=== PATIENT | female | born 1945 | race Caucasian/White ===

== ENCOUNTER → 2018-02-09 11:35 | Outpatient (CLI) | payer MEDICARE, SELFPAY ==
--- NOTE | 2018-02-09 11:37 | DI.RAD.S_ITS ---
PROCEDURE: XR LUMBAR SPINE 2-3V INDICATIONS: back pain TECHNIQUE: 3 views of the lumbar spine were acquired. COMPARISON: None. FINDINGS: Bones: No fracture or focal osseous destruction One anterolisthesis of L4 on L5. Diffuse facet arthropathy. Mild multilevel lumbar disc degeneration and narrowing. There is partially visualized trace levocurvature centered at T11. Soft tissues: Overlying bowel gas pattern is normal. No suspicious soft tissue calcifications. Scattered aortic vascular calcifications. IMPRESSION: Mild diffuse lumbar disc degeneration and facet arthropathy. Grade 1 anterolisthesis of L4 on L5. Dictated by: Fabrice Penny M.D. on 02/09/2018 at 15:25 Approved by: Fabrice Penny M.D. on 02/09/2018 at 15:27
== END ==
PROVIDERS: Family Provider Family Medicine; PCP Family Medicine; Visit Provider Family Medicine
DX: M54.5 Low back pain (principal); M51.36 Other intervertebral disc degeneration, lumbar region; M47.816 Spondylosis without myelopathy or radiculopathy, lumbar region; M43.16 Spondylolisthesis, lumbar region
CPT/HCPCS: 72100

== ENCOUNTER → 2018-05-12 12:02 | Outpatient (CLI) | payer MEDICARE, SELFPAY ==
--- NOTE | 2018-05-12 | DI.MG.S_ITS ---
BILATERAL DIGITAL SCREENING MAMMOGRAM 3D/2D WITH CAD: 05/12/2018 CLINICAL: Routine screening. Comparison is made to exams dated: 04/06/2017 mammogram, 03/24/2016 mammogram, and 01/15/2015 mammogram - [facility]. The tissue of both breasts is heterogeneously dense. This may lower the sensitivity of mammography. Current study was also evaluated with a Computer Aided Detection (CAD) system. There are benign vascular calcifications in both breasts. There are mole markers on both breasts. No significant masses, calcifications, or other findings are seen in either breast. There has been no significant interval change. IMPRESSION: There is no mammographic evidence of malignancy. A 1 year screening mammogram is recommended. This exam was interpreted at Station ID: [id number]. NOTE: For mammograms, a report in lay terms will be sent to the patient. Approximately 15% of breast malignancies will not be visualized mammographically. In the management of a palpable breast mass, a negative mammogram must not discourage biopsy of a clinically suspicious lesion. Electronically Signed By: Jim hernandez/jaime:05/12/2018 18:11:22 letter sent: Normal Exam ACR BI-RADS Category 2: Benign Finding(s) 3342F
== END ==
PROVIDERS: Family Provider Family Medicine; PCP Family Medicine; Visit Provider Family Medicine
DX: Z12.31 Encounter for screening mammogram for malignant neoplasm of breast (principal)
CPT/HCPCS: 77063; 77067

== ENCOUNTER → 2018-05-13 10:01 | Outpatient (CLI) | payer MEDICARE, SELFPAY ==
[2018-05-13 10:53] LABS: Add Manual Diff / Slide Review NO; Basophils Absolute Auto 0 /uL (0-100); Basophils Percent Auto 0.9 % (0-2); Eosinophils Absolute Auto 100 /uL (0-450); Eosinophils Percent Auto 1.1 % (2-4); Hematocrit 42.5 % (36-46); Hemoglobin 14.2 g/dL (12.0-16.0); Lymphocytes Absolute Auto 1200 /uL (1100-4500); Lymphocytes Percent Auto 24.7 % (25-40); Mean Corpuscular HGB Conc 33.3 % (30-36); Mean Corpuscular Hemoglobin 30.1 PG (26-34); Mean Corpuscular Volume 90.3 fL (80-100); Monocytes Absolute Auto 400 /uL (0-900); Monocytes Percent Auto 8.7 % (3-14); Neutrophils Absolute Auto 3100 /uL (1500-7000); Neutrophils Percent Auto 64.6 % (50-75); Platelet Count 326 X10^3/uL (150-400); Red Blood Cell Count 4.71 X10^6/uL (4.0-5.2); Red Cell Distribution Width 13.7 % (11.6-14.8); White Blood Cell Count 4.8 X10^3/uL (4.5-11.0)
[2018-05-13 11:06] LABS: Alanine Aminotransferase 37 IU/L (9-52); Albumin 4.4 g/dL (3.5-5.0); Albumin Globulin Ratio 1.4 (1.0-2.8); Alkaline Phosphatase 87 U/L (38-126); Aspartate Aminotransferase 28 IU/L (14-36); BUN Creatinine Ratio 17.5 (6-22); Bilirubin Total 0.4 mg/dL (0.2-1.3); Blood Urea Nitrogen 14 mg/dL (7-17); Calcium 9.2 mg/dL (8.4-10.2); Carbon Dioxide 25 mmol/L (22-32); Chloride 105 mmol/L (98-107); Cholesterol 221 mg/dL (140-199); Estimated Glomerular Filt Rate > 60.0 mL/min (>60); Globulin 3.1 g/dL (1.7-4.1); Glucose 102 mg/dL (80-110); HDL Cholesterol 68 mg/dL (40-60); HEMOLYSIS < 15 (0-50); LDL Cholesterol Calculated 133 mg/dL (<100); Potassium 4.1 mmol/L (3.4-5.1); Sodium 140 mmol/L (137-145); Total Protein 7.5 g/dL (6.3-8.2); Triglycerides 98 mg/dL (35-150)
[2018-05-13 12:36] LABS: TSH w/ Reflex to FT4 2.26 uIU/mL (0.47-4.68)
== END ==
PROVIDERS: PCP Family Medicine; Visit Provider Family Medicine
DX: E78.5 Hyperlipidemia, unspecified (principal); Z13.6 Encounter for screening for cardiovascular disorders
CPT/HCPCS: 36415; 80053; 80061; 84443; 85025

== ENCOUNTER 2018-11-03 13:00 | Outpatient (RCR) | payer MEDICARE, SELFPAY ==
--- NOTE | 2018-02-12 14:19 | PT.OIE ---
Current Diagnoses Low back pain (02/12/18) Past Medical History (Last Reviewed 02/09/18 @ 10:53 by Nalini Cortes LPN) Foot pain (Chronic ~2011) GERD (gastroesophageal reflux disease) (Chronic) Schatzki's ring (Chronic 08/16/15) Rectal polyp (Resolved 08/16/15) Seborrheic keratoses (Resolved) Skin cancer of nose (Resolved ~1999) Past Surgical History (Last Reviewed 02/09/18 @ 10:53 by Nalini Cortes LPN) Anesthesia complication (Resolved) History of colonoscopy with polypectomy (Resolved 08/16/15) History of esophagogastroduodenoscopy (EGD) (Resolved 08/16/15) History of local excision of skin lesion (Resolved ~1999) Status post dilation and curettage (Resolved) Status post endoscopy (Resolved) Status post right foot surgery (Resolved 1986) Provider Visit Care Team Role Provider Type Ezio Stiles MD Attending Provider Physician Family Provider Primary Care Provider Specialty: Family Practice Address: [address] [place] [address] Email: [email or web address] Physical Therapy Initial Evaluation PT-OP-A Visit Information Start: 02/11/18 11:12 Freq: Status: Active Protocol: Document 02/12/18 09:46 [facility] (Rec: 02/12/18 10:47 [facility] [id number]) Out-Patient Physical Therapy Visit Information Visit Information Visit Type Initial Evaluation Visit Note 1 total Visit Start Time 09:45 Visit Stop Time 10:30 Total Visit Minutes 45 Visit Number 03/11 PT-OP-B Current Condition Start: 02/11/18 11:12 Freq: Status: Active Protocol: Document 02/12/18 09:46 [facility] (Rec: 02/12/18 10:47 [facility] [id number]) Current Condition History of Current Condition Onset Date a few months ago Current Complaints LBP History of Current Condition Pt reports she fell when chasing a runaway suitcase going down hill that pulled her hard and she landed flat on her back. This was a few months ago and she has had back pain since this and it is not getting better with her trying to do stretches. Reports when she gets up from sitting, it takes her a while to get fully straight. Pt reports being distracted during daily activity d/t pain and gets fatigued quicker. has been doing vacuuming and some of the harder household tasks. Pt reports back pain years ago but went away and was never a lasting thing. Reports she was in hospital for back pain one time because she turned to close the car door and had inc pain. Pt reports this was probably about 15 years or more. Pt has hx of R bunionectomy about 30 years ago. Pt reports hx of D&C about 33 years ago. Pt reports she hit her toe in the past week on L but it is starting to feel better. 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 PT-OP-C Subjective Start: 02/11/18 11:12 Freq: Status: Active Protocol: Document 02/12/18 09:46 [facility] (Rec: 02/12/18 10:47 [facility] [id number]) Patient Questionnaires Oswestry Low Back Index Oswestry Score 38 Oswestry Impairment 20 to 39% Impaired (Score 20- 39) OP-PT Pain Assessment Location LBP Pain Location Details LBP to R hip & lat thigh; pain switches sides Description Aching Dull Description- Other heavy weight in LB; piercing pain w/some movements Frequency Constant Pain Duration difficulty giving number Pain Aggravating Factors ADL's Sitting Bending Lifting Other Pain Aggravating Factors pulling pants on, moving RLE, Pain Alleviating Factors Heat Other Pain Alleviating Factors massage chair (easy level) PT-OP-F Manual Assessment Start: 02/11/18 11:12 Freq: Status: Active Protocol: Document 02/12/18 09:46 [facility] (Rec: 02/12/18 10:47 [facility] [id number]) Manual Assessments Soft Tissue Assessment Soft Tissue Mobility Assessment TIghtness in QL, ES, piriformis & glutes R>L Joint Mobility Assessment Joint Mobility Assessment R iliac crest elevated and ant ; even greater trochanter height PT-OP-G Mobility & Gait Start: 02/11/18 11:12 Freq: Status: Active Protocol: Document 02/12/18 09:46 [facility] (Rec: 02/12/18 10:47 [facility] [id number]) OP Gait Assessment Comments Gait Comments Leg walker primarily; Rotation of R pelvis with RLE push off , fwd trunk lean PT-OP-J Posture/Palpation/Skin Start: 02/11/18 11:12 Freq: Status: Active Protocol: Document 02/12/18 09:46 [facility] (Rec: 02/12/18 10:47 [facility] [id number]) Posture Evaluation [facility] Postural Classification System [facility] Postural Classifications Anterior/Posterior Vertebral Compression Test 0 Elbow Flexion Test 2 Lumbar Protective Mechanism Left AP 1 Lumbar Protective Mechanism Right AP 2 Lumbar Protective Mechanism Left PA 0 Lumbar Protective Mechanism Right PA 0 Leg Swing Left Hard End Feel Limited Leg Swing Right Hard End Feel Limited PT-OP-K Range of Motion Start: 02/11/18 11:12 Freq: Status: Active Protocol: Document 02/12/18 09:46 [facility] (Rec: 02/12/18 10:47 [facility] [id number]) Lumbar Spine Range of Motion Lumbar Spine Active Degrees Testing Position Standing Flexion 34 Extension 11 Lateral Flexion Left 20 Lateral Flexion Right 17 Comments pain with all motions PT-OP-L Special Tests Start: 02/11/18 11:12 Freq: Status: Active Protocol: Document 02/12/18 09:46 [facility] (Rec: 02/12/18 10:47 [facility] [id number]) Special Tests Lumbar Spine Special Tests Slump Test Results neg Straight Leg Raise Test Results neg b PT-OP-M Strength Start: 02/11/18 11:12 Freq: Status: Active Protocol: Document 02/12/18 09:46 [facility] (Rec: 02/12/18 10:47 [facility] [id number]) Hip Strength Hip Manual Muscle Testing Right Flexion (L2) 4+ Good+ Extension (S1) 3+ Fair+ Abduction 3+ Fair+ External Rotation 4- Good- Internal Rotation 4- Good- Comments pain testing all ranges Left Flexion (L2) 4+ Good+ Extension (S1) 4 Good Abduction 4+ Good+ External Rotation 4+ Good+ Internal Rotation 4+ Good+ Knee Strength Knee Manual Muscle Testing Left Flexion (S2) 5 Normal Extension (L3) 4+ Good+ Right Flexion (S2) 5 Normal Extension (L3) 4+ Good+ Ankle/Foot Strength Ankle and Foot Manual Muscle Testing Left Dorsiflexion (L4) 5 Normal Plantarflexion (S1) 5 Normal Right Dorsiflexion (L4) 5 Normal Plantarflexion (S1) 5 Normal PT-OP-Q Treatments Start: 02/11/18 11:12 Freq: Status: Active Protocol: Document 02/12/18 09:46 [facility] (Rec: 02/12/18 10:47 [facility] [id number]) Therapeutic Exercises Supine Exercises marching Supine Exercise Name Tabd brace with marching Side bilateral Reps/Minutes 5 Tabd bracing Supine Exercise Name Tabd brace Reps/Minutes 5 PT-OP-R Modalities Start: 02/11/18 11:12 Freq: Status: Active Protocol: Document 02/12/18 09:46 [facility] (Rec: 02/12/18 10:47 [facility] [id number]) Hot Pack/Cold Pack Treatment Hot Pack Location LB Patient Position Hooklying Treatment Duration (minutes) 15 PT-OP-T Assessment and Plan Start: 02/11/18 11:12 Freq: Status: Active Protocol: Document 02/12/18 09:46 [facility] (Rec: 02/12/18 14:19 [facility] [id number]) Physical Therapy Assessment Rehab Potential Rehabilitation Potential Good Evaluation Complexity Number of Personal Factors/Comorbidities 1-2 Number of Body Systems Impaired 3 Clinical Presentation at Evaluation Stable Impairments Impairments Activity Tolerance Balance Functional Activities Functional Mobility Gait Pain Posture ROM Soft Tissue Mobility Strength Goals ROM Senior Care Goal (LTG) ROM to WNL to allow pt to do ADLs without pain LTG Duration 04/15/18 activity Short Term Goal (STG) Pt will demonstrate good lifting mechanics. STG Duration 03/15/18j Senior Care Goal (LTG) Pt will be able to return to normal daily activities without inc pain or fatigue. LTG Duration 04/15/18 strength Short Term Goal (STG) Indep with HEP STG Duration 03/15/18 Visual And Stock Associate Goal (LTG) Pt will have 5/5 LE strength & 4/5 LPM, EFT & VCT to demonstrate improved core stability to allow pt to do normal daily activities without pain. LTG Duration 04/15/18 Assessment Summary Assessment Pt presents with LBP and R hip pain with impaired posture and poor core control. Pt has mild arthritis, but pain likely mostly d/t fall a few months ago creating uneven pelvis. Physical Therapy Plan Frequency and Duration Frequency of Treatment 2x/Week Duration of Treatment 2 months Plan of Care Start Date 02/12/18 Plan of Care End Date 04/15/18 Therapeutic Interventions Therapeutic Interventions Aquatic Therapy Balance Training Gait Training Home Exercise Program Joint Mobilizations Manual Therapy Neuromuscular Re-education Patient/Caregiver Education Self-Care/Home Management Soft Tissue Mobilization Taping Therapeutic Activities Therapeutic Exercises Modalities Cold Pack/Ice Massage Electric Stimulation Hot Packs Traction- Mechanical Ultrasound Next Visit Focus/Plan Next Note Type Treatment Note Next Visit Plan Supine core stability exercises, piriformis stretch, STM to LB and piriformis & hip inf & ant mobs
--- NOTE | 2018-02-12 14:20 | PT.OPPOC ---
Current Diagnoses Low back pain (02/12/18) Provider Visit Care Team Role Provider Type Ezio Stiles MD Attending Provider Physician Family Provider Primary Care Provider Specialty: Family Practice Address: [address] [place] [address], [facility] Email: [email or web address] Plan Of Care PT-OP-T Assessment and Plan Start: 02/11/18 11:12 Freq: Status: Active Protocol: Document 02/12/18 09:46 [facility] (Rec: 02/12/18 14:19 [facility] [id number]) Physical Therapy Assessment Rehab Potential Rehabilitation Potential Good Evaluation Complexity Number of Personal Factors/Comorbidities 1-2 Number of Body Systems Impaired 3 Clinical Presentation at Evaluation Stable Impairments Impairments Activity Tolerance Balance Functional Activities Functional Mobility Gait Pain Posture ROM Soft Tissue Mobility Strength Goals ROM Detention Goal (LTG) ROM to WNL to allow pt to do ADLs without pain LTG Duration 04/15/18 activity Short Term Goal (STG) Pt will demonstrate good lifting mechanics. STG Duration 03/15/18j Natural Sciences Professor Goal (LTG) Pt will be able to return to normal daily activities without inc pain or fatigue. LTG Duration 04/15/18 strength Short Term Goal (STG) Indep with HEP STG Duration 03/15/18 Natural Sciences Professor Goal (LTG) Pt will have 5/5 LE strength & 4/5 LPM, EFT & VCT to demonstrate improved core stability to allow pt to do normal daily activities without pain. LTG Duration 04/15/18 Assessment Summary Assessment Pt presents with LBP and R hip pain with impaired posture and poor core control. Pt has mild arthritis, but pain likely mostly d/t fall a few months ago creating uneven pelvis. Physical Therapy Plan Frequency and Duration Frequency of Treatment 2x/Week Duration of Treatment 2 months Plan of Care Start Date 02/12/18 Plan of Care End Date 04/15/18 Therapeutic Interventions Therapeutic Interventions Aquatic Therapy Balance Training Gait Training Home Exercise Program Joint Mobilizations Manual Therapy Neuromuscular Re-education Patient/Caregiver Education Self-Care/Home Management Soft Tissue Mobilization Taping Therapeutic Activities Therapeutic Exercises Modalities Cold Pack/Ice Massage Electric Stimulation Hot Packs Traction- Mechanical Ultrasound Next Visit Focus/Plan Next Note Type Treatment Note Next Visit Plan Supine core stability exercises, piriformis stretch, STM to LB and piriformis & hip inf & ant mobs Plan of Care Dates Plan of Care Start Date 02/12/18 Plan of Care End Date 04/15/18 Please Sign and Return: I have reviewed this Plan of Care and certify that the skilled therapy services above are required to meet the patient?s needs. Physician Signature Date Printed Name and Credentials Clinical Instructor Signature Printed Name and Credentials
--- NOTE | 2018-02-19 10:36 | PT.OTN ---
Current Diagnoses Low back pain (02/19/18) Physical Therapy Treatment Note PT-OP-A Visit Information Start: 02/11/18 11:12 Freq: Status: Active Protocol: Document 02/19/18 09:01 [facility] (Rec: 02/19/18 10:34 [facility] [id number]) Out-Patient Physical Therapy Visit Information Visit Information Visit Type Treatment Note Visit Note 2 total Visit Start Time 09:45 Visit Stop Time 10:40 Total Visit Minutes 55 Visit Number 2/10 Number of FERMENTATION OPERATOR Visits 0 PT-OP-B Current Condition Start: 02/11/18 11:12 Freq: Status: Active Protocol: Document 02/12/18 09:46 [facility] (Rec: 02/12/18 10:47 [facility] [id number]) Current Condition History of Current Condition Onset Date a few months ago Current Complaints LBP History of Current Condition Pt reports she fell when chasing a runaway suitcase going down hill that pulled her hard and she landed flat on her back. This was a few months ago and she has had back pain since this and it is not getting better with her trying to do stretches. Reports when she gets up from sitting, it takes her a while to get fully straight. Pt reports being distracted during daily activity d/t pain and gets fatigued quicker. has been doing vacuuming and some of the harder household tasks. Pt reports back pain years ago but went away and was never a lasting thing. Reports she was in hospital for back pain one time because she turned to close the car door and had inc pain. Pt reports this was probably about 15 years or more. Pt has hx of R bunionectomy about 30 years ago. Pt reports hx of D&C about 33 years ago. Pt reports she hit her toe in the past week on L but it is starting to feel better. 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 PT-OP-C Subjective Start: 02/11/18 11:12 Freq: Status: Active Protocol: Document 02/19/18 09:01 [facility] (Rec: 02/19/18 10:34 [facility] [id number]) OP-PT Subjective Patient Comments Patient Comments Pt reports she has been doing well with exercises. PT-OP-F Manual Assessment Start: 02/11/18 11:12 Freq: Status: Active Protocol: Document 02/12/18 09:46 [facility] (Rec: 02/12/18 10:47 [facility] [id number]) Manual Assessments Soft Tissue Assessment Soft Tissue Mobility Assessment TIghtness in QL, ES, piriformis & glutes R>L Joint Mobility Assessment Joint Mobility Assessment R iliac crest elevated and ant ; even greater trochanter height PT-OP-G Mobility & Gait Start: 02/11/18 11:12 Freq: Status: Active Protocol: Document 02/12/18 09:46 [facility] (Rec: 02/12/18 10:47 [facility] [id number]) OP Gait Assessment Comments Gait Comments Leg walker primarily; Rotation of R pelvis with RLE push off , fwd trunk lean PT-OP-J Posture/Palpation/Skin Start: 02/11/18 11:12 Freq: Status: Active Protocol: Document 02/12/18 09:46 [facility] (Rec: 02/12/18 10:47 [facility] [id number]) Posture Evaluation [facility] Postural Classification System [facility] Postural Classifications Anterior/Posterior Vertebral Compression Test 0 Elbow Flexion Test 2 Lumbar Protective Mechanism Left AP 1 Lumbar Protective Mechanism Right AP 2 Lumbar Protective Mechanism Left PA 0 Lumbar Protective Mechanism Right PA 0 Leg Swing Left Hard End Feel Limited Leg Swing Right Hard End Feel Limited PT-OP-K Range of Motion Start: 02/11/18 11:12 Freq: Status: Active Protocol: Document 02/12/18 09:46 [facility] (Rec: 02/12/18 10:47 [facility] [id number]) Lumbar Spine Range of Motion Lumbar Spine Active Degrees Testing Position Standing Flexion 34 Extension 11 Lateral Flexion Left 20 Lateral Flexion Right 17 Comments pain with all motions PT-OP-L Special Tests Start: 02/11/18 11:12 Freq: Status: Active Protocol: Document 02/12/18 09:46 [facility] (Rec: 02/12/18 10:47 [facility] [id number]) Special Tests Lumbar Spine Special Tests Slump Test Results neg Straight Leg Raise Test Results neg b PT-OP-M Strength Start: 02/11/18 11:12 Freq: Status: Active Protocol: Document 02/12/18 09:46 [facility] (Rec: 02/12/18 10:47 [facility] [id number]) Hip Strength Hip Manual Muscle Testing Right Flexion (L2) 4+ Good+ Extension (S1) 3+ Fair+ Abduction 3+ Fair+ External Rotation 4- Good- Internal Rotation 4- Good- Comments pain testing all ranges Left Flexion (L2) 4+ Good+ Extension (S1) 4 Good Abduction 4+ Good+ External Rotation 4+ Good+ Internal Rotation 4+ Good+ Knee Strength Knee Manual Muscle Testing Left Flexion (S2) 5 Normal Extension (L3) 4+ Good+ Right Flexion (S2) 5 Normal Extension (L3) 4+ Good+ Ankle/Foot Strength Ankle and Foot Manual Muscle Testing Left Dorsiflexion (L4) 5 Normal Plantarflexion (S1) 5 Normal Right Dorsiflexion (L4) 5 Normal Plantarflexion (S1) 5 Normal PT-OP-Q Treatments Start: 02/11/18 11:12 Freq: Status: Active Protocol: Document 02/19/18 09:01 [facility] (Rec: 02/19/18 10:34 [facility] [id number]) Cardio Equipment Recumbent Elliptical ([employer] Duration (Minutes) 5 Resistance 1 Seat Position 4 Therapeutic Exercises Supine Exercises bridge Supine Exercise Name bridge Reps/Minutes 10 Comments faciliated with traction through LEs Habd Supine Exercise Name hip abd Equipment Used L3 Reps/Minutes 20 piriformis stretch Supine Exercise Name piriformis stretch Reps/Minutes 30 sec marching Supine Exercise Name Tabd brace with SLR Side bilateral Reps/Minutes 8 Tabd bracing Supine Exercise Name Tabd brace Reps/Minutes 5 Manual Therapy Treatment Soft Tissue Mobilization piriformis Body Location piriformis Mobilization Type Sustained Pressure QL Body Location QL Mobilization Type Rolling Joint Mobilizations hip Joint hip Direction on axis ER FM PT-OP-R Modalities Start: 02/11/18 11:12 Freq: Status: Active Protocol: Document 02/19/18 09:01 [facility] (Rec: 02/19/18 10:34 [facility] [id number]) Hot Pack/Cold Pack Treatment Hot Pack Location LB Patient Position Hooklying Treatment Duration (minutes) 15 PT-OP-T Assessment and Plan Start: 02/11/18 11:12 Freq: Status: Active Protocol: Document 02/19/18 09:01 [facility] (Rec: 02/19/18 10:34 [facility] [id number]) Physical Therapy Assessment Goals ROM Mcfp Goal (LTG) ROM to WNL to allow pt to do ADLs without pain LTG Duration 04/15/18 activity Short Term Goal (STG) Pt will demonstrate good lifting mechanics. STG Duration 03/15/18j Senior Fire Protection Engineer Goal (LTG) Pt will be able to return to normal daily activities without inc pain or fatigue. LTG Duration 04/15/18 strength Short Term Goal (STG) Indep with HEP STG Duration 03/15/18 Mcfp Goal (LTG) Pt will have 5/5 LE strength & 4/5 LPM, EFT & VCT to demonstrate improved core stability to allow pt to do normal daily activities without pain. LTG Duration 04/15/18 Assessment Summary Assessment Pt improved ability to activate her core today without crunching up. Pt required faciliation to be able to do bridge without pain initially. Improved hip ER with mob. Physical Therapy Plan Frequency and Duration Frequency of Treatment 2x/Week Duration of Treatment 2 months Plan of Care Start Date 02/12/18 Plan of Care End Date 04/15/18 Next Visit Focus/Plan Next Note Type Treatment Note Next Visit Plan iso hip flexion, Cont to work on soft tissue and mechanical restrictions
--- NOTE | 2018-03-04 11:53 | PT.OTN ---
Current Diagnoses Low back pain (03/04/18) Physical Therapy Treatment Note PT-OP-A Visit Information Start: 02/11/18 11:12 Freq: Status: Active Protocol: Document 03/04/18 11:42 [facility] (Rec: 03/04/18 11:53 [facility] [id number]) Out-Patient Physical Therapy Visit Information Visit Information Visit Type Treatment Note Visit Note 3 total Visit Start Time 09:45 Visit Stop Time 10:45 Total Visit Minutes 60 Visit Number 3/10 Number of MATERIAL PLANNING ANALYST Visits 0 Evaluation Information Evaluation Date 02/12/18 PT-OP-B Current Condition Start: 02/11/18 11:12 Freq: Status: Active Protocol: Document 02/12/18 09:46 [facility] (Rec: 02/12/18 10:47 [facility] [id number]) Current Condition History of Current Condition Onset Date a few months ago Current Complaints LBP History of Current Condition Pt reports she fell when chasing a runaway suitcase going down hill that pulled her hard and she landed flat on her back. This was a few months ago and she has had back pain since this and it is not getting better with her trying to do stretches. Reports when she gets up from sitting, it takes her a while to get fully straight. Pt reports being distracted during daily activity d/t pain and gets fatigued quicker. has been doing vacuuming and some of the harder household tasks. Pt reports back pain years ago but went away and was never a lasting thing. Reports she was in hospital for back pain one time because she turned to close the car door and had inc pain. Pt reports this was probably about 15 years or more. Pt has hx of R bunionectomy about 30 years ago. Pt reports hx of D&C about 33 years ago. Pt reports she hit her toe in the past week on L but it is starting to feel better. 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 PT-OP-C Subjective Start: 02/11/18 11:12 Freq: Status: Active Protocol: Document 03/04/18 11:42 [facility] (Rec: 03/04/18 11:53 [facility] [id number]) OP-PT Subjective Patient Comments Patient Comments Radha reports she is doing better, she still notes that after she has been sitting for a period of time she will be sore when she gets up to get going again. PT-OP-F Manual Assessment Start: 02/11/18 11:12 Freq: Status: Active Protocol: Document 02/12/18 09:46 [facility] (Rec: 02/12/18 10:47 [facility] [id number]) Manual Assessments Soft Tissue Assessment Soft Tissue Mobility Assessment TIghtness in QL, ES, piriformis & glutes R>L Joint Mobility Assessment Joint Mobility Assessment R iliac crest elevated and ant ; even greater trochanter height PT-OP-G Mobility & Gait Start: 02/11/18 11:12 Freq: Status: Active Protocol: Document 02/12/18 09:46 [facility] (Rec: 02/12/18 10:47 [facility] [id number]) OP Gait Assessment Comments Gait Comments Leg walker primarily; Rotation of R pelvis with RLE push off , fwd trunk lean PT-OP-J Posture/Palpation/Skin Start: 02/11/18 11:12 Freq: Status: Active Protocol: Document 02/12/18 09:46 [facility] (Rec: 02/12/18 10:47 [facility] [id number]) Posture Evaluation [facility] Postural Classification System [facility] Postural Classifications Anterior/Posterior Vertebral Compression Test 0 Elbow Flexion Test 2 Lumbar Protective Mechanism Left AP 1 Lumbar Protective Mechanism Right AP 2 Lumbar Protective Mechanism Left PA 0 Lumbar Protective Mechanism Right PA 0 Leg Swing Left Hard End Feel Limited Leg Swing Right Hard End Feel Limited PT-OP-K Range of Motion Start: 02/11/18 11:12 Freq: Status: Active Protocol: Document 02/12/18 09:46 [facility] (Rec: 02/12/18 10:47 [facility] [id number]) Lumbar Spine Range of Motion Lumbar Spine Active Degrees Testing Position Standing Flexion 34 Extension 11 Lateral Flexion Left 20 Lateral Flexion Right 17 Comments pain with all motions PT-OP-L Special Tests Start: 02/11/18 11:12 Freq: Status: Active Protocol: Document 02/12/18 09:46 [facility] (Rec: 02/12/18 10:47 [facility] [id number]) Special Tests Lumbar Spine Special Tests Slump Test Results neg Straight Leg Raise Test Results neg b PT-OP-M Strength Start: 02/11/18 11:12 Freq: Status: Active Protocol: Document 02/12/18 09:46 [facility] (Rec: 02/12/18 10:47 [facility] [id number]) Hip Strength Hip Manual Muscle Testing Right Flexion (L2) 4+ Good+ Extension (S1) 3+ Fair+ Abduction 3+ Fair+ External Rotation 4- Good- Internal Rotation 4- Good- Comments pain testing all ranges Left Flexion (L2) 4+ Good+ Extension (S1) 4 Good Abduction 4+ Good+ External Rotation 4+ Good+ Internal Rotation 4+ Good+ Knee Strength Knee Manual Muscle Testing Left Flexion (S2) 5 Normal Extension (L3) 4+ Good+ Right Flexion (S2) 5 Normal Extension (L3) 4+ Good+ Ankle/Foot Strength Ankle and Foot Manual Muscle Testing Left Dorsiflexion (L4) 5 Normal Plantarflexion (S1) 5 Normal Right Dorsiflexion (L4) 5 Normal Plantarflexion (S1) 5 Normal PT-OP-Q Treatments Start: 02/11/18 11:12 Freq: Status: Active Protocol: Document 03/04/18 11:42 [facility] (Rec: 03/04/18 11:53 [facility] [email or web address]) Therapeutic Exercises Supine Exercises 2 Supine Exercise Name lower trunk rotation Reps/Minutes 10 each direction with a hold at end range following 10 reps 1 Supine Exercise Name iliopsoas stretch with leg off the side of the bed Comments pt shown for HEP bridge Supine Exercise Name bridge Reps/Minutes 10 Comments faciliated with traction through LEs Habd Supine Exercise Name hip abd Equipment Used L3 Reps/Minutes 20 piriformis stretch Supine Exercise Name piriformis stretch Reps/Minutes 30 sec marching Supine Exercise Name Tabd brace with SLR Side bilateral Reps/Minutes 8 Tabd bracing Supine Exercise Name Tabd brace Reps/Minutes 5 Other Exercises 2 Other Exercise Name hamstring stretch Reps/Minutes 1 min hold each side 1 Other Exercise Name cat cow segmental mobility Reps/Minutes 10 reps Comments verbal cueing for segmental mobility Manual Therapy Treatment Soft Tissue Mobilization 1 Body Location pin and stretch for iliopsoas and quadraceps in sidelying piriformis Body Location piriformis Mobilization Type Sustained Pressure QL Body Location QL Mobilization Type Rolling PT-OP-R Modalities Start: 02/11/18 11:12 Freq: Status: Active Protocol: Document 03/04/18 11:42 [facility] (Rec: 03/04/18 11:53 [facility] [email or web address]) Electric Stimulation Electric Stimulation Interferential Current (IFC) Body Location IFC with MHP to the lower back and sacral region Duration (Minutes) 15 Patient Position Hooklying Combined With Heat/Cold Hot Pack Hot Pack/Cold Pack Treatment Hot Pack Location LB Patient Position Hooklying Treatment Duration (minutes) 15 PT-OP-T Assessment and Plan Start: 02/11/18 11:12 Freq: Status: Active Protocol: Document 03/04/18 11:42 [facility] (Rec: 03/04/18 11:53 [facility] [email or web address]) Physical Therapy Assessment Assessment Summary Assessment following stretching and verbal cues Radha is able to do a bridge without pain, she is tight in the R>L iliopsoas and we did a lot of work today on loosening up the hip flexors. Physical Therapy Plan Frequency and Duration Frequency of Treatment 2x/Week Duration of Treatment 2 months Plan of Care Start Date 02/12/18 Plan of Care End Date 04/15/18 Therapeutic Interventions Therapeutic Interventions Aquatic Therapy Balance Training Gait Training Home Exercise Program Joint Mobilizations Manual Therapy Neuromuscular Re-education Patient/Caregiver Education Self-Care/Home Management Soft Tissue Mobilization Taping Therapeutic Activities Therapeutic Exercises Modalities Cold Pack/Ice Massage Electric Stimulation Hot Packs Traction- Mechanical Ultrasound Next Visit Focus/Plan Next Note Type Treatment Note Next Visit Plan continue to work on flexibility and activation of the core as well as soft tissue restrictions
--- NOTE | 2018-03-09 12:08 | PT.OTN ---
Current Diagnoses Low back pain (03/09/18) Physical Therapy Treatment Note PT-OP-A Visit Information Start: 02/11/18 11:12 Freq: Status: Active Protocol: Document 03/09/18 11:18 [facility] (Rec: 03/09/18 12:07 [facility] [id number]) Out-Patient Physical Therapy Visit Information Visit Information Visit Type Treatment Note Visit Note 2 total 2019 Visit Start Time 11:15 Visit Stop Time 12:15 Total Visit Minutes 60 Visit Number 4/10 Number of MEDICAL INTERN Visits 0 PT-OP-B Current Condition Start: 02/11/18 11:12 Freq: Status: Active Protocol: Document 02/12/18 09:46 [facility] (Rec: 02/12/18 10:47 [facility] [id number]) Current Condition History of Current Condition Onset Date a few months ago Current Complaints LBP History of Current Condition Pt reports she fell when chasing a runaway suitcase going down hill that pulled her hard and she landed flat on her back. This was a few months ago and she has had back pain since this and it is not getting better with her trying to do stretches. Reports when she gets up from sitting, it takes her a while to get fully straight. Pt reports being distracted during daily activity d/t pain and gets fatigued quicker. has been doing vacuuming and some of the harder household tasks. Pt reports back pain years ago but went away and was never a lasting thing. Reports she was in hospital for back pain one time because she turned to close the car door and had inc pain. Pt reports this was probably about 15 years or more. Pt has hx of R bunionectomy about 30 years ago. Pt reports hx of D&C about 33 years ago. Pt reports she hit her toe in the past week on L but it is starting to feel better. 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 PT-OP-C Subjective Start: 02/11/18 11:12 Freq: Status: Active Protocol: Document 03/09/18 11:18 [facility] (Rec: 03/09/18 12:07 [facility] [id number]) OP-PT Subjective Patient Comments Patient Comments Exercises have been going well . PT-OP-F Manual Assessment Start: 02/11/18 11:12 Freq: Status: Active Protocol: Document 02/12/18 09:46 [facility] (Rec: 02/12/18 10:47 [facility] [id number]) Manual Assessments Soft Tissue Assessment Soft Tissue Mobility Assessment TIghtness in QL, ES, piriformis & glutes R>L Joint Mobility Assessment Joint Mobility Assessment R iliac crest elevated and ant ; even greater trochanter height PT-OP-G Mobility & Gait Start: 02/11/18 11:12 Freq: Status: Active Protocol: Document 02/12/18 09:46 [facility] (Rec: 02/12/18 10:47 [facility] [id number]) OP Gait Assessment Comments Gait Comments Leg walker primarily; Rotation of R pelvis with RLE push off , fwd trunk lean PT-OP-J Posture/Palpation/Skin Start: 02/11/18 11:12 Freq: Status: Active Protocol: Document 02/12/18 09:46 [facility] (Rec: 02/12/18 10:47 [facility] [id number]) Posture Evaluation [facility] Postural Classification System [facility] Postural Classifications Anterior/Posterior Vertebral Compression Test 0 Elbow Flexion Test 2 Lumbar Protective Mechanism Left AP 1 Lumbar Protective Mechanism Right AP 2 Lumbar Protective Mechanism Left PA 0 Lumbar Protective Mechanism Right PA 0 Leg Swing Left Hard End Feel Limited Leg Swing Right Hard End Feel Limited PT-OP-K Range of Motion Start: 02/11/18 11:12 Freq: Status: Active Protocol: Document 02/12/18 09:46 [facility] (Rec: 02/12/18 10:47 [facility] [id number]) Lumbar Spine Range of Motion Lumbar Spine Active Degrees Testing Position Standing Flexion 34 Extension 11 Lateral Flexion Left 20 Lateral Flexion Right 17 Comments pain with all motions PT-OP-L Special Tests Start: 02/11/18 11:12 Freq: Status: Active Protocol: Document 02/12/18 09:46 [facility] (Rec: 02/12/18 10:47 [facility] [id number]) Special Tests Lumbar Spine Special Tests Slump Test Results neg Straight Leg Raise Test Results neg b PT-OP-M Strength Start: 02/11/18 11:12 Freq: Status: Active Protocol: Document 02/12/18 09:46 [facility] (Rec: 02/12/18 10:47 [facility] [id number]) Hip Strength Hip Manual Muscle Testing Right Flexion (L2) 4+ Good+ Extension (S1) 3+ Fair+ Abduction 3+ Fair+ External Rotation 4- Good- Internal Rotation 4- Good- Comments pain testing all ranges Left Flexion (L2) 4+ Good+ Extension (S1) 4 Good Abduction 4+ Good+ External Rotation 4+ Good+ Internal Rotation 4+ Good+ Knee Strength Knee Manual Muscle Testing Left Flexion (S2) 5 Normal Extension (L3) 4+ Good+ Right Flexion (S2) 5 Normal Extension (L3) 4+ Good+ Ankle/Foot Strength Ankle and Foot Manual Muscle Testing Left Dorsiflexion (L4) 5 Normal Plantarflexion (S1) 5 Normal Right Dorsiflexion (L4) 5 Normal Plantarflexion (S1) 5 Normal PT-OP-Q Treatments Start: 02/11/18 11:12 Freq: Status: Active Protocol: Document 03/09/18 11:18 [facility] (Rec: 03/09/18 12:07 [facility] [id number]) Therapeutic Exercises Supine Exercises figure 4 stretch Supine Exercise Name figure 4 stretch Reps/Minutes 30 sec hold 2 Supine Exercise Name lower trunk rotation Reps/Minutes 10 each direction with a hold at end range following 10 reps 1 Supine Exercise Name iliopsoas stretch with leg off the side of the bed Comments pt shown for HEP Other Exercises 1 Other Exercise Name cat cow segmental mobility Reps/Minutes 10 reps Comments verbal cueing for segmental mobility Therapeutic Activity Therapeutic Activity Sleeping Name s/l sleeping position edu Manual Therapy Treatment Soft Tissue Mobilization 1 Body Location iliospoas in jason test stretch piriformis Body Location piriformis Mobilization Type Sustained Pressure Joint Mobilizations innominate Joint innominate Direction flex FM hip Joint hip Direction on axis ER FM & inf glide FM PT-OP-R Modalities Start: 02/11/18 11:12 Freq: Status: Active Protocol: Document 03/09/18 11:18 [facility] (Rec: 03/09/18 12:07 [facility] [id number]) Hot Pack/Cold Pack Treatment Hot Pack Location LB Patient Position Hooklying Treatment Duration (minutes) 15 PT-OP-T Assessment and Plan Start: 02/11/18 11:12 Freq: Status: Active Protocol: Document 03/09/18 11:18 [facility] (Rec: 03/09/18 12:07 [facility] [id number]) Physical Therapy Assessment Goals ROM Care Home Goal (LTG) ROM to WNL to allow pt to do ADLs without pain LTG Duration 04/15/18 activity Short Term Goal (STG) Pt will demonstrate good lifting mechanics. STG Duration 03/15/18j Care Home Goal (LTG) Pt will be able to return to normal daily activities without inc pain or fatigue. LTG Duration 04/15/18 strength Short Term Goal (STG) Indep with HEP STG Duration 03/15/18 Plant Chief Goal (LTG) Pt will have 5/5 LE strength & 4/5 LPM, EFT & VCT to demonstrate improved core stability to allow pt to do normal daily activities without pain. LTG Duration 04/15/18 Assessment Summary Assessment Pt able to tolerate figure 4 stretch only in supine where she gently pulls the leg into flex while ER. She did well with exercises given at last session with cueing required for core control with LTR and for no arm movement with cat/ camel. Pt has significant ant and post hip tightness and innominate immobility that likely contributes to dec ability to do flex w/ER. Physical Therapy Plan Frequency and Duration Frequency of Treatment 2x/Week Duration of Treatment 2 months Plan of Care Start Date 02/12/18 Plan of Care End Date 04/15/18 Next Visit Focus/Plan Next Note Type Treatment Note Next Visit Plan iso hip flex, hip joint & sacral & innominate mobs
--- NOTE | 2018-03-12 10:58 | PT.OTN ---
Current Diagnoses Low back pain (03/12/18) Physical Therapy Treatment Note PT-OP-A Visit Information Start: 02/11/18 11:12 Freq: Status: Active Protocol: Document 03/12/18 10:45 [facility] (Rec: 03/12/18 10:58 [facility] [email or web address]) Out-Patient Physical Therapy Visit Information Visit Information Visit Type Treatment Note Visit Start Time 09:00 Visit Stop Time 09:54 Total Visit Minutes 54 Visit Number 5/10 Number of WET MILLING WHEEL OPERATOR Visits 1 PT-OP-B Current Condition Start: 02/11/18 11:12 Freq: Status: Active Protocol: Document 02/12/18 09:46 [facility] (Rec: 02/12/18 10:47 [facility] [id number]) Current Condition History of Current Condition Onset Date a few months ago Current Complaints LBP History of Current Condition Pt reports she fell when chasing a runaway suitcase going down hill that pulled her hard and she landed flat on her back. This was a few months ago and she has had back pain since this and it is not getting better with her trying to do stretches. Reports when she gets up from sitting, it takes her a while to get fully straight. Pt reports being distracted during daily activity d/t pain and gets fatigued quicker. has been doing vacuuming and some of the harder household tasks. Pt reports back pain years ago but went away and was never a lasting thing. Reports she was in hospital for back pain one time because she turned to close the car door and had inc pain. Pt reports this was probably about 15 years or more. Pt has hx of R bunionectomy about 30 years ago. Pt reports hx of D&C about 33 years ago. Pt reports she hit her toe in the past week on L but it is starting to feel better. 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 PT-OP-C Subjective Start: 02/11/18 11:12 Freq: Status: Active Protocol: Document 03/12/18 10:45 [facility] (Rec: 03/12/18 10:58 [facility] [id number]) OP-PT Subjective Patient Comments Patient Comments Pt doing HEP daily, still feels like LB and hip are tight but symptoms are a little better. PT-OP-F Manual Assessment Start: 02/11/18 11:12 Freq: Status: Active Protocol: Document 02/12/18 09:46 [facility] (Rec: 02/12/18 10:47 [facility] [id number]) Manual Assessments Soft Tissue Assessment Soft Tissue Mobility Assessment TIghtness in QL, ES, piriformis & glutes R>L Joint Mobility Assessment Joint Mobility Assessment R iliac crest elevated and ant ; even greater trochanter height PT-OP-G Mobility & Gait Start: 02/11/18 11:12 Freq: Status: Active Protocol: Document 02/12/18 09:46 [facility] (Rec: 02/12/18 10:47 [facility] [id number]) OP Gait Assessment Comments Gait Comments Leg walker primarily; Rotation of R pelvis with RLE push off , fwd trunk lean PT-OP-J Posture/Palpation/Skin Start: 02/11/18 11:12 Freq: Status: Active Protocol: Document 02/12/18 09:46 [facility] (Rec: 02/12/18 10:47 [facility] [id number]) Posture Evaluation [facility] Postural Classification System [facility] Postural Classifications Anterior/Posterior Vertebral Compression Test 0 Elbow Flexion Test 2 Lumbar Protective Mechanism Left AP 1 Lumbar Protective Mechanism Right AP 2 Lumbar Protective Mechanism Left PA 0 Lumbar Protective Mechanism Right PA 0 Leg Swing Left Hard End Feel Limited Leg Swing Right Hard End Feel Limited PT-OP-K Range of Motion Start: 02/11/18 11:12 Freq: Status: Active Protocol: Document 02/12/18 09:46 [facility] (Rec: 02/12/18 10:47 [facility] [id number]) Lumbar Spine Range of Motion Lumbar Spine Active Degrees Testing Position Standing Flexion 34 Extension 11 Lateral Flexion Left 20 Lateral Flexion Right 17 Comments pain with all motions PT-OP-L Special Tests Start: 02/11/18 11:12 Freq: Status: Active Protocol: Document 02/12/18 09:46 [facility] (Rec: 02/12/18 10:47 [facility] [id number]) Special Tests Lumbar Spine Special Tests Slump Test Results neg Straight Leg Raise Test Results neg b PT-OP-M Strength Start: 02/11/18 11:12 Freq: Status: Active Protocol: Document 02/12/18 09:46 [facility] (Rec: 02/12/18 10:47 [facility] [id number]) Hip Strength Hip Manual Muscle Testing Right Flexion (L2) 4+ Good+ Extension (S1) 3+ Fair+ Abduction 3+ Fair+ External Rotation 4- Good- Internal Rotation 4- Good- Comments pain testing all ranges Left Flexion (L2) 4+ Good+ Extension (S1) 4 Good Abduction 4+ Good+ External Rotation 4+ Good+ Internal Rotation 4+ Good+ Knee Strength Knee Manual Muscle Testing Left Flexion (S2) 5 Normal Extension (L3) 4+ Good+ Right Flexion (S2) 5 Normal Extension (L3) 4+ Good+ Ankle/Foot Strength Ankle and Foot Manual Muscle Testing Left Dorsiflexion (L4) 5 Normal Plantarflexion (S1) 5 Normal Right Dorsiflexion (L4) 5 Normal Plantarflexion (S1) 5 Normal PT-OP-Q Treatments Start: 02/11/18 11:12 Freq: Status: Active Protocol: Document 03/12/18 10:45 [facility] (Rec: 03/12/18 10:58 [facility] [email or web address]) Therapeutic Exercises Supine Exercises figure 4 stretch Supine Exercise Name figure 4 stretch Reps/Minutes 30 x 2 2 Supine Exercise Name lower trunk rotation Reps/Minutes 10 each direction with a hold at end range following 10 reps marching Supine Exercise Name Tabd brace with SLR Side bilateral Reps/Minutes 8 Tabd bracing Supine Exercise Name Tabd brace Reps/Minutes min Other Exercises 2 Other Exercise Name hamstring stretch Reps/Minutes 1 min hold each side 1 Other Exercise Name cat cow segmental mobility Reps/Minutes 15 reps Comments verbal cueing for segmental mobility Manual Therapy Treatment Soft Tissue Mobilization piriformis Body Location piriformis Mobilization Type Sustained Pressure QL Body Location QL/ lumbar paraspinals Mobilization Type Rolling PT-OP-R Modalities Start: 02/11/18 11:12 Freq: Status: Active Protocol: Document 03/12/18 10:45 [facility] (Rec: 03/12/18 10:58 [facility] [email or web address]) Electric Stimulation Electric Stimulation Interferential Current (IFC) Body Location IFC with MHP to the lower back and sacral region Duration (Minutes) 15 Patient Position Prone Combined With Heat/Cold Hot Pack PT-OP-T Assessment and Plan Start: 02/11/18 11:12 Freq: Status: Active Protocol: Document 03/12/18 10:45 [facility] (Rec: 03/12/18 10:58 [facility] [id number]) Physical Therapy Assessment Assessment Summary Assessment Seated figure 4 with limited time tolerated but pt reports improvement from last visit. Pt with continued limitations with hip mobility, tolerating HEP and gradual decreasing of LBP intensity. Physical Therapy Plan Next Visit Focus/Plan Next Note Type Treatment Note Next Visit Plan Cont to progress lumbar stab program, hip ROM and assess response to manual therapy.
--- NOTE | 2018-03-16 11:28 | PT.OTN ---
Current Diagnoses Low back pain (03/16/18) Physical Therapy Treatment Note PT-OP-A Visit Information Start: 02/11/18 11:12 Freq: Status: Active Protocol: Document 03/16/18 11:17 (Rec: 03/16/18 11:27 [email or web address]) Out-Patient Physical Therapy Visit Information Visit Information Visit Type Treatment Note Visit Start Time 10:29 Visit Stop Time 11:23 Total Visit Minutes 54 Visit Number 6/10 Number of PROJECT SAFETY MANAGER Visits 2 PT-OP-B Current Condition Start: 02/11/18 11:12 Freq: Status: Active Protocol: Document 02/12/18 09:46 [facility] (Rec: 02/12/18 10:47 [facility] [id number]) Current Condition History of Current Condition Onset Date a few months ago Current Complaints LBP History of Current Condition Pt reports she fell when chasing a runaway suitcase going down hill that pulled her hard and she landed flat on her back. This was a few months ago and she has had back pain since this and it is not getting better with her trying to do stretches. Reports when she gets up from sitting, it takes her a while to get fully straight. Pt reports being distracted during daily activity d/t pain and gets fatigued quicker. has been doing vacuuming and some of the harder household tasks. Pt reports back pain years ago but went away and was never a lasting thing. Reports she was in hospital for back pain one time because she turned to close the car door and had inc pain. Pt reports this was probably about 15 years or more. Pt has hx of R bunionectomy about 30 years ago. Pt reports hx of D&C about 33 years ago. Pt reports she hit her toe in the past week on L but it is starting to feel better. 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 PT-OP-C Subjective Start: 02/11/18 11:12 Freq: Status: Active Protocol: Document 03/16/18 11:17 SA (Rec: 03/16/18 11:27 [email or web address]) OP-PT Subjective Patient Comments Patient Comments Pt reports she had about 3 days of relief from symptoms after lst visit. LBP is back this morning, feels stiif and painful. PT-OP-F Manual Assessment Start: 02/11/18 11:12 Freq: Status: Active Protocol: Document 02/12/18 09:46 [facility] (Rec: 02/12/18 10:47 [facility] [id number]) Manual Assessments Soft Tissue Assessment Soft Tissue Mobility Assessment TIghtness in QL, ES, piriformis & glutes R>L Joint Mobility Assessment Joint Mobility Assessment R iliac crest elevated and ant ; even greater trochanter height PT-OP-G Mobility & Gait Start: 02/11/18 11:12 Freq: Status: Active Protocol: Document 02/12/18 09:46 [facility] (Rec: 02/12/18 10:47 [facility] [id number]) OP Gait Assessment Comments Gait Comments Leg walker primarily; Rotation of R pelvis with RLE push off , fwd trunk lean PT-OP-J Posture/Palpation/Skin Start: 02/11/18 11:12 Freq: Status: Active Protocol: Document 02/12/18 09:46 [facility] (Rec: 02/12/18 10:47 [facility] [id number]) Posture Evaluation Tasneem Postural Classification System Tasneem Postural Classifications Anterior/Posterior Vertebral Compression Test 0 Elbow Flexion Test 2 Lumbar Protective Mechanism Left AP 1 Lumbar Protective Mechanism Right AP 2 Lumbar Protective Mechanism Left PA 0 Lumbar Protective Mechanism Right PA 0 Leg Swing Left Hard End Feel Limited Leg Swing Right Hard End Feel Limited PT-OP-K Range of Motion Start: 02/11/18 11:12 Freq: Status: Active Protocol: Document 02/12/18 09:46 [facility] (Rec: 02/12/18 10:47 [facility] [id number]) Lumbar Spine Range of Motion Lumbar Spine Active Degrees Testing Position Standing Flexion 34 Extension 11 Lateral Flexion Left 20 Lateral Flexion Right 17 Comments pain with all motions PT-OP-L Special Tests Start: 02/11/18 11:12 Freq: Status: Active Protocol: Document 02/12/18 09:46 [facility] (Rec: 02/12/18 10:47 [facility] [id number]) Special Tests Lumbar Spine Special Tests Slump Test Results neg Straight Leg Raise Test Results neg b PT-OP-M Strength Start: 02/11/18 11:12 Freq: Status: Active Protocol: Document 02/12/18 09:46 [facility] (Rec: 02/12/18 10:47 [facility] [id number]) Hip Strength Hip Manual Muscle Testing Right Flexion (L2) 4+ Good+ Extension (S1) 3+ Fair+ Abduction 3+ Fair+ External Rotation 4- Good- Internal Rotation 4- Good- Comments pain testing all ranges Left Flexion (L2) 4+ Good+ Extension (S1) 4 Good Abduction 4+ Good+ External Rotation 4+ Good+ Internal Rotation 4+ Good+ Knee Strength Knee Manual Muscle Testing Left Flexion (S2) 5 Normal Extension (L3) 4+ Good+ Right Flexion (S2) 5 Normal Extension (L3) 4+ Good+ Ankle/Foot Strength Ankle and Foot Manual Muscle Testing Left Dorsiflexion (L4) 5 Normal Plantarflexion (S1) 5 Normal Right Dorsiflexion (L4) 5 Normal Plantarflexion (S1) 5 Normal PT-OP-Q Treatments Start: 02/11/18 11:12 Freq: Status: Active Protocol: Document 03/16/18 11:17 SA (Rec: 03/16/18 11:27 SA [email or web address]) Therapeutic Exercises Supine Exercises figure 4 stretch Supine Exercise Name figure 4 stretch Reps/Minutes 30 x 2 2 Supine Exercise Name lower trunk rotation Reps/Minutes 15 each 1 Supine Exercise Name iliopsoas stretch with leg off the side of the bed bridge Supine Exercise Name bridge Reps/Minutes 15 Comments faciliated with traction through LEs Habd Supine Exercise Name clamshells Side bilateral Equipment Used L2 Reps/Minutes 15x each piriformis stretch Supine Exercise Name piriformis stretch Reps/Minutes 30 sec marching Supine Exercise Name Tabd brace with SLR Side bilateral Reps/Minutes 12 x each Comments slow/controlled Tabd bracing Supine Exercise Name Tabd brace Reps/Minutes 5 min Other Exercises 1 Other Exercise Name cat cow segmental mobility Reps/Minutes 15 reps Comments verbal cueing for segmental mobility Manual Therapy Treatment Soft Tissue Mobilization piriformis Body Location piriformis Mobilization Type Sustained Pressure QL Body Location QL/ lumbar paraspinals Mobilization Type Myofascial Release Rolling Strumming Joint Mobilizations hip Joint hip Direction on axis ER FM & inf glide FM PT-OP-R Modalities Start: 02/11/18 11:12 Freq: Status: Active Protocol: Document 03/16/18 11:17 [facility] (Rec: 03/16/18 11:27 SA [email or web address]) Electric Stimulation Electric Stimulation Interferential Current (IFC) Body Location IFC with MHP to the lower back and sacral region Duration (Minutes) 15 Patient Position Supine Combined With Heat/Cold Hot Pack PT-OP-T Assessment and Plan Start: 02/11/18 11:12 Freq: Status: Active Protocol: Document 03/16/18 11:17 SA (Rec: 03/16/18 11:27 [facility] [email or web address]) Physical Therapy Assessment Assessment Summary Assessment Pt leaving on vacation, advised to continue with HEP. Assess symptoms upon return. Progress core stability and stretching program. Physical Therapy Plan Next Visit Focus/Plan Next Note Type Treatment Note Next Visit Plan Pt tolerated last treatment well, progress core stab. and stretching program as able.
--- NOTE | 2018-03-26 11:21 | PT.OTN ---
Current Diagnoses Low back pain (03/26/18) Physical Therapy Treatment Note PT-OP-A Visit Information Start: 02/11/18 11:12 Freq: Status: Active Protocol: Document 03/26/18 11:09 (Rec: 03/26/18 11:21 [email or web address]) Out-Patient Physical Therapy Visit Information Visit Information Visit Type Treatment Note Visit Start Time 10:30 Visit Stop Time 11:16 Total Visit Minutes 46 Visit Number 7/10 Number of PARAMEDIC INSTRUCTOR Visits 3 PT-OP-B Current Condition Start: 02/11/18 11:12 Freq: Status: Active Protocol: Document 02/12/18 09:46 [facility] (Rec: 02/12/18 10:47 [facility] [id number]) Current Condition History of Current Condition Onset Date a few months ago Current Complaints LBP History of Current Condition Pt reports she fell when chasing a runaway suitcase going down hill that pulled her hard and she landed flat on her back. This was a few months ago and she has had back pain since this and it is not getting better with her trying to do stretches. Reports when she gets up from sitting, it takes her a while to get fully straight. Pt reports being distracted during daily activity d/t pain and gets fatigued quicker. has been doing vacuuming and some of the harder household tasks. Pt reports back pain years ago but went away and was never a lasting thing. Reports she was in hospital for back pain one time because she turned to close the car door and had inc pain. Pt reports this was probably about 15 years or more. Pt has hx of R bunionectomy about 30 years ago. Pt reports hx of D&C about 33 years ago. Pt reports she hit her toe in the past week on L but it is starting to feel better. 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 PT-OP-C Subjective Start: 02/11/18 11:12 Freq: Status: Active Protocol: Document 03/26/18 11:09 (Rec: 03/26/18 11:21 [email or web address]) OP-PT Subjective Patient Comments Patient Comments Pt was away on vacation for about a week, reports not doing any of her HEP for the last 10 days. States her back pain is present especially with position changes and knows she needs to do her daily exercises. PT-OP-F Manual Assessment Start: 02/11/18 11:12 Freq: Status: Active Protocol: Document 02/12/18 09:46 [facility] (Rec: 02/12/18 10:47 [facility] [id number]) Manual Assessments Soft Tissue Assessment Soft Tissue Mobility Assessment TIghtness in QL, ES, piriformis & glutes R>L Joint Mobility Assessment Joint Mobility Assessment R iliac crest elevated and ant ; even greater trochanter height PT-OP-G Mobility & Gait Start: 02/11/18 11:12 Freq: Status: Active Protocol: Document 02/12/18 09:46 [facility] (Rec: 02/12/18 10:47 [facility] [id number]) OP Gait Assessment Comments Gait Comments Leg walker primarily; Rotation of R pelvis with RLE push off , fwd trunk lean PT-OP-J Posture/Palpation/Skin Start: 02/11/18 11:12 Freq: Status: Active Protocol: Document 02/12/18 09:46 [facility] (Rec: 02/12/18 10:47 [facility] [id number]) Posture Evaluation Atsneem Postural Classification System Tasneem Postural Classifications Anterior/Posterior Vertebral Compression Test 0 Elbow Flexion Test 2 Lumbar Protective Mechanism Left AP 1 Lumbar Protective Mechanism Right AP 2 Lumbar Protective Mechanism Left PA 0 Lumbar Protective Mechanism Right PA 0 Leg Swing Left Hard End Feel Limited Leg Swing Right Hard End Feel Limited PT-OP-K Range of Motion Start: 02/11/18 11:12 Freq: Status: Active Protocol: Document 02/12/18 09:46 [facility] (Rec: 02/12/18 10:47 [facility] [id number]) Lumbar Spine Range of Motion Lumbar Spine Active Degrees Testing Position Standing Flexion 34 Extension 11 Lateral Flexion Left 20 Lateral Flexion Right 17 Comments pain with all motions PT-OP-L Special Tests Start: 02/11/18 11:12 Freq: Status: Active Protocol: Document 02/12/18 09:46 [facility] (Rec: 02/12/18 10:47 [facility] [id number]) Special Tests Lumbar Spine Special Tests Slump Test Results neg Straight Leg Raise Test Results neg b PT-OP-M Strength Start: 02/11/18 11:12 Freq: Status: Active Protocol: Document 02/12/18 09:46 [facility] (Rec: 02/12/18 10:47 [facility] [id number]) Hip Strength Hip Manual Muscle Testing Right Flexion (L2) 4+ Good+ Extension (S1) 3+ Fair+ Abduction 3+ Fair+ External Rotation 4- Good- Internal Rotation 4- Good- Comments pain testing all ranges Left Flexion (L2) 4+ Good+ Extension (S1) 4 Good Abduction 4+ Good+ External Rotation 4+ Good+ Internal Rotation 4+ Good+ Knee Strength Knee Manual Muscle Testing Left Flexion (S2) 5 Normal Extension (L3) 4+ Good+ Right Flexion (S2) 5 Normal Extension (L3) 4+ Good+ Ankle/Foot Strength Ankle and Foot Manual Muscle Testing Left Dorsiflexion (L4) 5 Normal Plantarflexion (S1) 5 Normal Right Dorsiflexion (L4) 5 Normal Plantarflexion (S1) 5 Normal PT-OP-Q Treatments Start: 02/11/18 11:12 Freq: Status: Active Protocol: Document 03/26/18 11:09 SA (Rec: 03/26/18 11:21 [email or web address]) Cardio Equipment Recumbent Elliptical (OpenZine) Duration (Minutes) 5 Resistance 3 Other Cues for neutral spine Therapeutic Exercises Supine Exercises figure 4 stretch Supine Exercise Name figure 4 stretch Reps/Minutes 30 x 2 2 Supine Exercise Name lower trunk rotation Reps/Minutes 15 each bridge Supine Exercise Name bridge with PT ball Reps/Minutes 20x Comments slow and controlled Habd Supine Exercise Name clamshells Side bilateral Equipment Used L2 Reps/Minutes 15x each piriformis stretch Supine Exercise Name piriformis stretch Reps/Minutes 30 sec marching Supine Exercise Name Tabd brace with SLR Side bilateral Reps/Minutes 15 x each Comments slow/controlled Sitting Exercises Pelvic tilts with PT ball Equipment Used Red ball Reps/Minutes 20x Comments cues for control PT-OP-R Modalities Start: 02/11/18 11:12 Freq: Status: Active Protocol: Document 03/26/18 11:09 [facility] (Rec: 03/26/18 11:21 SA [email or web address]) Electric Stimulation Electric Stimulation Interferential Current (IFC) Body Location IFC with MHP to the lower back and sacral region Duration (Minutes) 15 Patient Position Sidelying Combined With Heat/Cold Hot Pack PT-OP-T Assessment and Plan Start: 02/11/18 11:12 Freq: Status: Active Protocol: Document 03/26/18 11:09 [facility] (Rec: 03/26/18 11:21 SA [email or web address]) Physical Therapy Assessment Assessment Summary Assessment Pt having increased symptoms after vacation. Focused on core stability program today and provided with updated HEP, encouraged pt to be consistent at home. Physical Therapy Plan Next Visit Focus/Plan Next Note Type Treatment Note Next Visit Plan Pt tolerated ther ex well. Follow up with HEP and tolerance and progress core stability.
--- NOTE | 2018-03-30 11:36 | PT.OTN ---
Current Diagnoses Low back pain (03/30/18) Physical Therapy Treatment Note PT-OP-A Visit Information Start: 02/11/18 11:12 Freq: Status: Active Protocol: Document 03/30/18 11:29 [facility] (Rec: 03/30/18 11:36 [email or web address]) Out-Patient Physical Therapy Visit Information Visit Information Visit Type Treatment Note Visit Start Time 10:30 Visit Stop Time 11:20 Visit Number 8/10 Number of LEADERSHIP COACH Visits 4 PT-OP-B Current Condition Start: 02/11/18 11:12 Freq: Status: Active Protocol: Document 02/12/18 09:46 [facility] (Rec: 02/12/18 10:47 [facility] [id number]) Current Condition History of Current Condition Onset Date a few months ago Current Complaints LBP History of Current Condition Pt reports she fell when chasing a runaway suitcase going down hill that pulled her hard and she landed flat on her back. This was a few months ago and she has had back pain since this and it is not getting better with her trying to do stretches. Reports when she gets up from sitting, it takes her a while to get fully straight. Pt reports being distracted during daily activity d/t pain and gets fatigued quicker. has been doing vacuuming and some of the harder household tasks. Pt reports back pain years ago but went away and was never a lasting thing. Reports she was in hospital for back pain one time because she turned to close the car door and had inc pain. Pt reports this was probably about 15 years or more. Pt has hx of R bunionectomy about 30 years ago. Pt reports hx of D&C about 33 years ago. Pt reports she hit her toe in the past week on L but it is starting to feel better. 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 PT-OP-C Subjective Start: 02/11/18 11:12 Freq: Status: Active Protocol: Document 03/30/18 11:29 [facility] (Rec: 03/30/18 11:36 [email or web address]) OP-PT Subjective Patient Comments Patient Comments Pt back to doing HEP daily with improving symptoms. PT-OP-F Manual Assessment Start: 02/11/18 11:12 Freq: Status: Active Protocol: Document 02/12/18 09:46 [facility] (Rec: 02/12/18 10:47 [facility] [id number]) Manual Assessments Soft Tissue Assessment Soft Tissue Mobility Assessment TIghtness in QL, ES, piriformis & glutes R>L Joint Mobility Assessment Joint Mobility Assessment R iliac crest elevated and ant ; even greater trochanter height PT-OP-G Mobility & Gait Start: 02/11/18 11:12 Freq: Status: Active Protocol: Document 02/12/18 09:46 [facility] (Rec: 02/12/18 10:47 [facility] [id number]) OP Gait Assessment Comments Gait Comments Leg walker primarily; Rotation of R pelvis with RLE push off , fwd trunk lean PT-OP-J Posture/Palpation/Skin Start: 02/11/18 11:12 Freq: Status: Active Protocol: Document 02/12/18 09:46 [facility] (Rec: 02/12/18 10:47 [facility] [id number]) Posture Evaluation Tasneem Postural Classification System Tasneem Postural Classifications Anterior/Posterior Vertebral Compression Test 0 Elbow Flexion Test 2 Lumbar Protective Mechanism Left AP 1 Lumbar Protective Mechanism Right AP 2 Lumbar Protective Mechanism Left PA 0 Lumbar Protective Mechanism Right PA 0 Leg Swing Left Hard End Feel Limited Leg Swing Right Hard End Feel Limited PT-OP-K Range of Motion Start: 02/11/18 11:12 Freq: Status: Active Protocol: Document 02/12/18 09:46 [facility] (Rec: 02/12/18 10:47 [facility] [id number]) Lumbar Spine Range of Motion Lumbar Spine Active Degrees Testing Position Standing Flexion 34 Extension 11 Lateral Flexion Left 20 Lateral Flexion Right 17 Comments pain with all motions PT-OP-L Special Tests Start: 02/11/18 11:12 Freq: Status: Active Protocol: Document 02/12/18 09:46 [facility] (Rec: 02/12/18 10:47 [facility] [id number]) Special Tests Lumbar Spine Special Tests Slump Test Results neg Straight Leg Raise Test Results neg b PT-OP-M Strength Start: 02/11/18 11:12 Freq: Status: Active Protocol: Document 02/12/18 09:46 [facility] (Rec: 02/12/18 10:47 [facility] [id number]) Hip Strength Hip Manual Muscle Testing Right Flexion (L2) 4+ Good+ Extension (S1) 3+ Fair+ Abduction 3+ Fair+ External Rotation 4- Good- Internal Rotation 4- Good- Comments pain testing all ranges Left Flexion (L2) 4+ Good+ Extension (S1) 4 Good Abduction 4+ Good+ External Rotation 4+ Good+ Internal Rotation 4+ Good+ Knee Strength Knee Manual Muscle Testing Left Flexion (S2) 5 Normal Extension (L3) 4+ Good+ Right Flexion (S2) 5 Normal Extension (L3) 4+ Good+ Ankle/Foot Strength Ankle and Foot Manual Muscle Testing Left Dorsiflexion (L4) 5 Normal Plantarflexion (S1) 5 Normal Right Dorsiflexion (L4) 5 Normal Plantarflexion (S1) 5 Normal PT-OP-Q Treatments Start: 02/11/18 11:12 Freq: Status: Active Protocol: Document 03/30/18 11:29 [facility] (Rec: 03/30/18 11:36 [email or web address]) Cardio Equipment Recumbent Bicycle Duration (Minutes) 5 Resistance 4 Seat Position pillow behind back, seat all the way forward Therapeutic Exercises Supine Exercises figure 4 stretch Supine Exercise Name figure 4 stretch Reps/Minutes 30 x 2 2 Supine Exercise Name lower trunk rotation Reps/Minutes 15 each bridge Supine Exercise Name bridge with PT ball Reps/Minutes 20x Comments slow and controlled Habd Supine Exercise Name clamshells Side bilateral Equipment Used L2 Reps/Minutes 15x each piriformis stretch Supine Exercise Name piriformis stretch Reps/Minutes 30 sec marching Supine Exercise Name Tabd brace with SLR Side bilateral Reps/Minutes Isometric hip flexion Comments 5 holds using hands for ovrpressure Manual Therapy Treatment Soft Tissue Mobilization QL Body Location QL/ lumbar paraspinals Mobilization Type Myofascial Release Rolling Strumming Intensity/Depth Moderate Comments Focus on L side PT-OP-R Modalities Start: 02/11/18 11:12 Freq: Status: Active Protocol: Document 03/30/18 11:29 [facility] (Rec: 03/30/18 11:36 [email or web address]) Electric Stimulation Electric Stimulation Interferential Current (IFC) Body Location IFC with MHP to the lower back and sacral region Duration (Minutes) 15 Patient Position Sidelying Combined With Heat/Cold Hot Pack PT-OP-T Assessment and Plan Start: 02/11/18 11:12 Freq: Status: Active Protocol: Document 03/30/18 11:29 [facility] (Rec: 03/30/18 11:36 [facility] [email or web address]) Physical Therapy Assessment Assessment Summary Assessment Pt reports feeling stronger and doing exercsies daily, improving tolerance of core strengthening progressions. L sacral pain/mm tightness but relieved with STM. Physical Therapy Plan Next Visit Focus/Plan Next Note Type Treatment Note Next Visit Plan Pt tolerated ther ex well. Follow up with HEP and tolerance and progress core stability.
--- NOTE | 2018-04-02 11:30 | PT.OTN ---
Current Diagnoses Low back pain (04/02/18) Physical Therapy Treatment Note PT-OP-A Visit Information Start: 02/11/18 11:12 Freq: Status: Active Protocol: Document 04/02/18 10:30 [facility] (Rec: 04/02/18 11:30 [facility] [id number]) Out-Patient Physical Therapy Visit Information Visit Information Visit Type Treatment Note Visit Start Time 10:30 Visit Stop Time 11:25 Total Visit Minutes 55 Visit Number 9/10 Number of GUEST ROOM ATTENDANT Visits 0 PT-OP-B Current Condition Start: 02/11/18 11:12 Freq: Status: Active Protocol: Document 02/12/18 09:46 [facility] (Rec: 02/12/18 10:47 [facility] [id number]) Current Condition History of Current Condition Onset Date a few months ago Current Complaints LBP History of Current Condition Pt reports she fell when chasing a runaway suitcase going down hill that pulled her hard and she landed flat on her back. This was a few months ago and she has had back pain since this and it is not getting better with her trying to do stretches. Reports when she gets up from sitting, it takes her a while to get fully straight. Pt reports being distracted during daily activity d/t pain and gets fatigued quicker. has been doing vacuuming and some of the harder household tasks. Pt reports back pain years ago but went away and was never a lasting thing. Reports she was in hospital for back pain one time because she turned to close the car door and had inc pain. Pt reports this was probably about 15 years or more. Pt has hx of R bunionectomy about 30 years ago. Pt reports hx of D&C about 33 years ago. Pt reports she hit her toe in the past week on L but it is starting to feel better. 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 PT-OP-C Subjective Start: 02/11/18 11:12 Freq: Status: Active Protocol: Document 04/02/18 10:30 [facility] (Rec: 04/02/18 11:30 [facility] [id number]) OP-PT Subjective Patient Comments Patient Comments Pt reports today is going well and reports she has been doing exercises daily which she feels like it helps. Reports she has been paying more attention to the way she moves. Reports she elevated her seat in the car which made it easier. PT-OP-F Manual Assessment Start: 02/11/18 11:12 Freq: Status: Active Protocol: Document 02/12/18 09:46 [facility] (Rec: 02/12/18 10:47 [facility] [id number]) Manual Assessments Soft Tissue Assessment Soft Tissue Mobility Assessment TIghtness in QL, ES, piriformis & glutes R>L Joint Mobility Assessment Joint Mobility Assessment R iliac crest elevated and ant ; even greater trochanter height PT-OP-G Mobility & Gait Start: 02/11/18 11:12 Freq: Status: Active Protocol: Document 02/12/18 09:46 [facility] (Rec: 02/12/18 10:47 [facility] [id number]) OP Gait Assessment Comments Gait Comments Leg walker primarily; Rotation of R pelvis with RLE push off , fwd trunk lean PT-OP-J Posture/Palpation/Skin Start: 02/11/18 11:12 Freq: Status: Active Protocol: Document 02/12/18 09:46 [facility] (Rec: 02/12/18 10:47 [facility] [id number]) Posture Evaluation Tasneem Postural Classification System Tasneem Postural Classifications Anterior/Posterior Vertebral Compression Test 0 Elbow Flexion Test 2 Lumbar Protective Mechanism Left AP 1 Lumbar Protective Mechanism Right AP 2 Lumbar Protective Mechanism Left PA 0 Lumbar Protective Mechanism Right PA 0 Leg Swing Left Hard End Feel Limited Leg Swing Right Hard End Feel Limited PT-OP-K Range of Motion Start: 02/11/18 11:12 Freq: Status: Active Protocol: Document 02/12/18 09:46 [facility] (Rec: 02/12/18 10:47 [facility] [id number]) Lumbar Spine Range of Motion Lumbar Spine Active Degrees Testing Position Standing Flexion 34 Extension 11 Lateral Flexion Left 20 Lateral Flexion Right 17 Comments pain with all motions PT-OP-L Special Tests Start: 02/11/18 11:12 Freq: Status: Active Protocol: Document 02/12/18 09:46 [facility] (Rec: 02/12/18 10:47 [facility] [id number]) Special Tests Lumbar Spine Special Tests Slump Test Results neg Straight Leg Raise Test Results neg b PT-OP-M Strength Start: 02/11/18 11:12 Freq: Status: Active Protocol: Document 02/12/18 09:46 [facility] (Rec: 02/12/18 10:47 [facility] [id number]) Hip Strength Hip Manual Muscle Testing Right Flexion (L2) 4+ Good+ Extension (S1) 3+ Fair+ Abduction 3+ Fair+ External Rotation 4- Good- Internal Rotation 4- Good- Comments pain testing all ranges Left Flexion (L2) 4+ Good+ Extension (S1) 4 Good Abduction 4+ Good+ External Rotation 4+ Good+ Internal Rotation 4+ Good+ Knee Strength Knee Manual Muscle Testing Left Flexion (S2) 5 Normal Extension (L3) 4+ Good+ Right Flexion (S2) 5 Normal Extension (L3) 4+ Good+ Ankle/Foot Strength Ankle and Foot Manual Muscle Testing Left Dorsiflexion (L4) 5 Normal Plantarflexion (S1) 5 Normal Right Dorsiflexion (L4) 5 Normal Plantarflexion (S1) 5 Normal PT-OP-Q Treatments Start: 02/11/18 11:12 Freq: Status: Active Protocol: Document 04/02/18 10:30 [facility] (Rec: 04/02/18 11:30 [facility] [id number]) Cardio Equipment Recumbent Bicycle Duration (Minutes) 5 Resistance 4 Seat Position pillow behind back, seat all the way forward Therapeutic Exercises Supine Exercises 1 Supine Exercise Name jason test stretch Side bilateral Reps/Minutes 30 sec Sidelying Exercises clamshell Sidelying Exercise Name clamshell Side bilateral Reps/Minutes 10 Standing Exercises lunges Standing Exercise Name lunges mini Side bilateral Reps/Minutes 10 wall squat Standing Exercise Name wall squat Reps/Minutes 15 Comments focus on flat back & core squats Standing Exercise Name over chair and at bar Reps/Minutes 10 Comments stopped d/t pain Manual Therapy Treatment Soft Tissue Mobilization QL Body Location QL/ lumbar paraspinals Mobilization Type Myofascial Release Rolling Strumming Intensity/Depth Moderate Comments Focus on L side PT-OP-R Modalities Start: 02/11/18 11:12 Freq: Status: Active Protocol: Document 04/02/18 10:30 [facility] (Rec: 04/02/18 11:30 [facility] [id number]) Electric Stimulation Electric Stimulation Interferential Current (IFC) Body Location IFC with MHP to the lower back and sacral region Duration (Minutes) 15 Patient Position Sidelying Combined With Heat/Cold Hot Pack PT-OP-T Assessment and Plan Start: 02/11/18 11:12 Freq: Status: Active Protocol: Document 04/02/18 10:30 [facility] (Rec: 04/02/18 11:30 [facility] [id number]) Physical Therapy Assessment Goals ROM Alligator Hunter Goal (LTG) ROM to WNL to allow pt to do ADLs without pain LTG Duration 04/15/18 activity Short Term Goal (STG) Pt will demonstrate good lifting mechanics. STG Duration 03/15/18j Custodial Goal (LTG) Pt will be able to return to normal daily activities without inc pain or fatigue. LTG Duration 04/15/18 strength Short Term Goal (STG) Indep with HEP STG Duration 03/15/18 Custodial Goal (LTG) Pt will have 5/5 LE strength & 4/5 LPM, EFT & VCT to demonstrate improved core stability to allow pt to do normal daily activities without pain. LTG Duration 04/15/18 Assessment Summary Assessment Pt unable to do squats without lumbar ext so changed to wall squats which was painfree for patient. Reviewed exercises that pt required cueing for. Physical Therapy Plan Frequency and Duration Frequency of Treatment 2x/Week Duration of Treatment 2 months Plan of Care Start Date 02/12/18 Plan of Care End Date 04/15/18 Next Visit Focus/Plan Next Note Type Progress Note Next Visit Plan Advance exercises as tolerated . Re evaluate progress; PNF
--- NOTE | 2018-04-06 11:27 | PT.OTN ---
Current Diagnoses Low back pain (04/06/18) Physical Therapy Treatment Note PT-OP-A Visit Information Start: 02/11/18 11:12 Freq: Status: Active Protocol: Document 04/06/18 11:09 (Rec: 04/06/18 11:27 [id number]) Out-Patient Physical Therapy Visit Information Visit Information Visit Type Treatment Note Visit Start Time 10:34 Visit Stop Time 11:21 Total Visit Minutes 47 Visit Number 10 Number of WIRE WELDER Visits 1 PT-OP-B Current Condition Start: 02/11/18 11:12 Freq: Status: Active Protocol: Document 02/12/18 09:46 [facility] (Rec: 02/12/18 10:47 [facility] [id number]) Current Condition History of Current Condition Onset Date a few months ago Current Complaints LBP History of Current Condition Pt reports she fell when chasing a runaway suitcase going down hill that pulled her hard and she landed flat on her back. This was a few months ago and she has had back pain since this and it is not getting better with her trying to do stretches. Reports when she gets up from sitting, it takes her a while to get fully straight. Pt reports being distracted during daily activity d/t pain and gets fatigued quicker. has been doing vacuuming and some of the harder household tasks. Pt reports back pain years ago but went away and was never a lasting thing. Reports she was in hospital for back pain one time because she turned to close the car door and had inc pain. Pt reports this was probably about 15 years or more. Pt has hx of R bunionectomy about 30 years ago. Pt reports hx of D&C about 33 years ago. Pt reports she hit her toe in the past week on L but it is starting to feel better. 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 PT-OP-C Subjective Start: 02/11/18 11:12 Freq: Status: Active Protocol: Document 04/06/18 11:09 (Rec: 04/06/18 11:27 [id number]) OP-PT Subjective Patient Comments Patient Comments Pt reports continued improvement with increasing tolerance of ADLs with decreased fatigue and pain, pt consistent with HEP and feels more aware of her body mechanics with activity. PT-OP-F Manual Assessment Start: 02/11/18 11:12 Freq: Status: Active Protocol: Document 02/12/18 09:46 [facility] (Rec: 02/12/18 10:47 [facility] [id number]) Manual Assessments Soft Tissue Assessment Soft Tissue Mobility Assessment TIghtness in QL, ES, piriformis & glutes R>L Joint Mobility Assessment Joint Mobility Assessment R iliac crest elevated and ant ; even greater trochanter height PT-OP-G Mobility & Gait Start: 02/11/18 11:12 Freq: Status: Active Protocol: Document 02/12/18 09:46 [facility] (Rec: 02/12/18 10:47 [facility] [id number]) OP Gait Assessment Comments Gait Comments Leg walker primarily; Rotation of R pelvis with RLE push off , fwd trunk lean PT-OP-J Posture/Palpation/Skin Start: 02/11/18 11:12 Freq: Status: Active Protocol: Document 02/12/18 09:46 [facility] (Rec: 02/12/18 10:47 [facility] [id number]) Posture Evaluation Tasneem Postural Classification System Tasneem Postural Classifications Anterior/Posterior Vertebral Compression Test 0 Elbow Flexion Test 2 Lumbar Protective Mechanism Left AP 1 Lumbar Protective Mechanism Right AP 2 Lumbar Protective Mechanism Left PA 0 Lumbar Protective Mechanism Right PA 0 Leg Swing Left Hard End Feel Limited Leg Swing Right Hard End Feel Limited PT-OP-K Range of Motion Start: 02/11/18 11:12 Freq: Status: Active Protocol: Document 02/12/18 09:46 [facility] (Rec: 02/12/18 10:47 [facility] [id number]) Lumbar Spine Range of Motion Lumbar Spine Active Degrees Testing Position Standing Flexion 34 Extension 11 Lateral Flexion Left 20 Lateral Flexion Right 17 Comments pain with all motions PT-OP-L Special Tests Start: 02/11/18 11:12 Freq: Status: Active Protocol: Document 02/12/18 09:46 [facility] (Rec: 02/12/18 10:47 [facility] [id number]) Special Tests Lumbar Spine Special Tests Slump Test Results neg Straight Leg Raise Test Results neg b PT-OP-M Strength Start: 02/11/18 11:12 Freq: Status: Active Protocol: Document 02/12/18 09:46 [facility] (Rec: 12/14/18 10:47 [facility] [id number]) Hip Strength Hip Manual Muscle Testing Right Flexion (L2) 4+ Good+ Extension (S1) 3+ Fair+ Abduction 3+ Fair+ External Rotation 4- Good- Internal Rotation 4- Good- Comments pain testing all ranges Left Flexion (L2) 4+ Good+ Extension (S1) 4 Good Abduction 4+ Good+ External Rotation 4+ Good+ Internal Rotation 4+ Good+ Knee Strength Knee Manual Muscle Testing Left Flexion (S2) 5 Normal Extension (L3) 4+ Good+ Right Flexion (S2) 5 Normal Extension (L3) 4+ Good+ Ankle/Foot Strength Ankle and Foot Manual Muscle Testing Left Dorsiflexion (L4) 5 Normal Plantarflexion (S1) 5 Normal Right Dorsiflexion (L4) 5 Normal Plantarflexion (S1) 5 Normal PT-OP-Q Treatments Start: 02/11/18 11:12 Freq: Status: Active Protocol: Document 04/06/18 11:09 (Rec: 04/06/18 11:27 [email or web address]) Cardio Equipment Recumbent Bicycle Duration (Minutes) 6 Resistance 5 Seat Position pillow behind back, seat all the way forward Therapeutic Exercises Supine Exercises Pelvic PNF post. depression and ant. elevation Side bilateral Reps/Minutes 10x Comments Pt supine hands on illiac crest to monitor/guide movement figure 4 stretch Supine Exercise Name figure 4 stretch Reps/Minutes 30 x 2 2 Supine Exercise Name lower trunk rotation Reps/Minutes 15 each 1 Supine Exercise Name jason test stretch Side bilateral Reps/Minutes 30 sec bridge Supine Exercise Name bridge with PT ball Reps/Minutes 20x Comments slow and controlled Habd Supine Exercise Name clamshells Side bilateral Equipment Used L2 Reps/Minutes 20x each piriformis stretch Supine Exercise Name piriformis stretch Reps/Minutes 30 sec marching Supine Exercise Name Tabd brace with SLR Side bilateral Reps/Minutes Isometric hip flexion Comments 5 holds using hands for ovrpressure Standing Exercises lunges Standing Exercise Name lunges mini Side bilateral Reps/Minutes 12x wall squat Standing Exercise Name wall squat Reps/Minutes 15 Comments focus on flat back & core PT-OP-R Modalities Start: 02/11/18 11:12 Freq: Status: Active Protocol: Document 04/06/18 11:09 (Rec: 04/06/18 11:27 [facility] [id number]) Electric Stimulation Electric Stimulation Interferential Current (IFC) Body Location IFC with MHP to the lower back and sacral region Duration (Minutes) 15 Patient Position Sidelying Combined With Heat/Cold Hot Pack PT-OP-T Assessment and Plan Start: 02/11/18 11:12 Freq: Status: Active Protocol: Document 04/06/18 11:09 [facility] (Rec: 04/06/18 11:27 [facility] [id number]) Physical Therapy Assessment Assessment Summary Assessment Pt demonstrates good body mechanics with lunges and squats at wall, able to correct excessive lumbar EXT. Reports decreased fatigue/pain with ADLs and lumbar/LE ROM not limiting performance of ADLs as it was previously. Physical Therapy Plan Next Visit Focus/Plan Next Note Type Progress Note Next Visit Plan Advance exercises as tolerated . Re evaluate progress; PNF
--- NOTE | 2018-04-16 13:04 | PT.OTN ---
Current Diagnoses Low back pain (04/16/18) Physical Therapy Treatment Note PT-OP-A Visit Information Start: 02/11/18 11:12 Freq: Status: Active Protocol: Document 04/16/18 12:13 [facility] (Rec: 04/16/18 13:04 [facility] [id number]) Out-Patient Physical Therapy Visit Information Visit Information Visit Type Progress Note Visit Start Time 12:15 Visit Stop Time 13:10 Total Visit Minutes 55 Visit Number 03/11 Number of FIELD MECHANIC Visits 0 PT-OP-B Current Condition Start: 02/11/18 11:12 Freq: Status: Active Protocol: Document 02/12/18 09:46 [facility] (Rec: 02/12/18 10:47 [facility] [id number]) Current Condition History of Current Condition Onset Date a few months ago Current Complaints LBP History of Current Condition Pt reports she fell when chasing a runaway suitcase going down hill that pulled her hard and she landed flat on her back. This was a few months ago and she has had back pain since this and it is not getting better with her trying to do stretches. Reports when she gets up from sitting, it takes her a while to get fully straight. Pt reports being distracted during daily activity d/t pain and gets fatigued quicker. has been doing vacuuming and some of the harder household tasks. Pt reports back pain years ago but went away and was never a lasting thing. Reports she was in hospital for back pain one time because she turned to close the car door and had inc pain. Pt reports this was probably about 15 years or more. Pt has hx of R bunionectomy about 30 years ago. Pt reports hx of D&C about 33 years ago. Pt reports she hit her toe in the past week on L but it is starting to feel better. 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 PT-OP-C Subjective Start: 02/11/18 11:12 Freq: Status: Active Protocol: Document 04/16/18 12:13 [facility] (Rec: 04/16/18 13:04 [facility] [id number]) OP-PT Subjective Patient Comments Patient Comments Reports getting out of bed has been easier PT-OP-F Manual Assessment Start: 02/11/18 11:12 Freq: Status: Active Protocol: Document 02/12/18 09:46 [facility] (Rec: 02/12/18 10:47 [facility] [id number]) Manual Assessments Soft Tissue Assessment Soft Tissue Mobility Assessment TIghtness in QL, ES, piriformis & glutes R>L Joint Mobility Assessment Joint Mobility Assessment R iliac crest elevated and ant ; even greater trochanter height PT-OP-G Mobility & Gait Start: 02/11/18 11:12 Freq: Status: Active Protocol: Document 02/12/18 09:46 [facility] (Rec: 02/12/18 10:47 [facility] [id number]) OP Gait Assessment Comments Gait Comments Leg walker primarily; Rotation of R pelvis with RLE push off , fwd trunk lean PT-OP-J Posture/Palpation/Skin Start: 02/11/18 11:12 Freq: Status: Active Protocol: Document 04/16/18 12:13 [facility] (Rec: 04/16/18 13:04 [facility] [id number]) Posture Evaluation Tasneem Postural Classification System Vertebral Compression Test 2 Elbow Flexion Test 2 Lumbar Protective Mechanism Left AP 1 Lumbar Protective Mechanism Right AP 3 Lumbar Protective Mechanism Left PA 3 Lumbar Protective Mechanism Right PA 3 PT-OP-K Range of Motion Start: 02/11/18 11:12 Freq: Status: Active Protocol: Document 04/16/18 12:13 [facility] (Rec: 04/16/18 13:04 [facility] [id number]) Lumbar Spine Range of Motion Lumbar Spine Active Degrees Flexion 53 Extension 17 Rotation Left 30 Rotation Right 30 Lateral Flexion Left 26 Lateral Flexion Right 24 Comments PULL B w/SB R PT-OP-L Special Tests Start: 02/11/18 11:12 Freq: Status: Active Protocol: Document 02/12/18 09:46 [facility] (Rec: 02/12/18 10:47 [facility] [id number]) Special Tests Lumbar Spine Special Tests Slump Test Results neg Straight Leg Raise Test Results neg b PT-OP-M Strength Start: 02/11/18 11:12 Freq: Status: Active Protocol: Document 04/16/18 12:13 [facility] (Rec: 04/16/18 13:04 [facility] [id number]) Hip Strength Hip Manual Muscle Testing Right Flexion (L2) 4 Good Extension (S1) 4- Good- Abduction 4+ Good+ External Rotation 4+ Good+ Internal Rotation 5 Normal Left Flexion (L2) 4+ Good+ Extension (S1) 3+ Fair+ Abduction 4+ Good+ External Rotation 4+ Good+ Internal Rotation 5 Normal Knee Strength Knee Manual Muscle Testing Left Flexion (S2) 5 Normal Extension (L3) 5 Normal Right Flexion (S2) 5 Normal Extension (L3) 5 Normal PT-OP-Q Treatments Start: 02/11/18 11:12 Freq: Status: Active Protocol: Document 04/16/18 12:13 [facility] (Rec: 04/16/18 13:04 [facility] [id number]) Therapeutic Exercises Supine Exercises hip rotation Supine Exercise Name in neutral, slight abd & add Reps/Minutes 8 each figure 4 stretch Supine Exercise Name figure 4 stretch Reps/Minutes 30 x 2 marching Supine Exercise Name march w/ER Reps/Minutes 8 Standing Exercises hip exrt Standing Exercise Name hip ext at counter Side bilateral Reps/Minutes 10 lunges Standing Exercise Name lunges mini Side bilateral Reps/Minutes 12x squats Standing Exercise Name over chair Reps/Minutes 12 PT-OP-R Modalities Start: 02/11/18 11:12 Freq: Status: Active Protocol: Document 04/16/18 12:13 [facility] (Rec: 04/16/18 13:04 [facility] [id number]) Electric Stimulation Electric Stimulation Interferential Current (IFC) Body Location IFC with MHP to the lower back and sacral region Duration (Minutes) 15 Patient Position Sidelying Combined With Heat/Cold Hot Pack PT-OP-T Assessment and Plan Start: 02/11/18 11:12 Freq: Status: Active Protocol: Document 04/16/18 12:13 [facility] (Rec: 04/16/18 13:04 [facility] [id number]) Physical Therapy Assessment Goals ROM Code Enforcement Officer Goal (LTG) ROM to WNL to allow pt to do ADLs without pain LTG Duration achieved activity Short Term Goal (STG) Pt will demonstrate good lifting mechanics. STG Duration 05/13/18 Code Enforcement Officer Goal (LTG) Pt will be able to return to normal daily activities without inc pain or fatigue. LTG Duration 06/13/18-improved activity tolerance strength Short Term Goal (STG) Indep with HEP STG Duration 03/15/18-achieved advancing as needed Skilled Nursing Goal (LTG) Pt will have 5/5 LE strength & 4/5 LPM, EFT & VCT to demonstrate improved core stability to allow pt to do normal daily activities without pain. LTG Duration 06/13/18-improving Assessment Summary Assessment Pt is improving with mechanics and cont to improve with strength & ROM. Functional activities are improving but high lifts with ER are still painful to R hip. Physical Therapy Plan Frequency and Duration Frequency of Treatment 2x/Week Duration of Treatment 2 months Plan of Care Start Date 04/16/18 Plan of Care End Date 06/14/18 Therapeutic Interventions Therapeutic Interventions Aquatic Therapy Balance Training Gait Training Home Exercise Program Joint Mobilizations Manual Therapy Neuromuscular Re-education Patient/Caregiver Education Self-Care/Home Management Soft Tissue Mobilization Taping Therapeutic Activities Therapeutic Exercises Modalities Cold Pack/Ice Massage Electric Stimulation Hot Packs Traction- Mechanical Ultrasound Next Visit Focus/Plan Next Note Type Progress Note Next Visit Plan assess lifting mechanics, PNF & soft tissue to QL
--- NOTE | 2018-04-16 13:05 | PT.OPPOC ---
Current Diagnoses Low back pain (04/16/18) Provider Visit Care Team Role Provider Type Ezio Stiles MD Attending Provider Physician Family Provider Primary Care Provider Specialty: Family Practice Address: [address] [place] [address], [id number] Email: [email or web address] Plan Of Care PT-OP-T Assessment and Plan Start: 02/11/18 11:12 Freq: Status: Active Protocol: Document 04/16/18 12:13 [facility] (Rec: 04/16/18 13:04 [facility] [id number]) Physical Therapy Assessment Goals ROM Care Home Goal (LTG) ROM to WNL to allow pt to do ADLs without pain LTG Duration achieved activity Short Term Goal (STG) Pt will demonstrate good lifting mechanics. STG Duration 05/13/18 Brisket Puller Goal (LTG) Pt will be able to return to normal daily activities without inc pain or fatigue. LTG Duration 06/13/18-improved activity tolerance strength Short Term Goal (STG) Indep with HEP STG Duration 03/15/18-achieved advancing as needed Brisket Puller Goal (LTG) Pt will have 5/5 LE strength & 4/5 LPM, EFT & VCT to demonstrate improved core stability to allow pt to do normal daily activities without pain. LTG Duration 06/13/18-improving Assessment Summary Assessment Pt is improving with mechanics and cont to improve with strength & ROM. Functional activities are improving but high lifts with ER are still painful to R hip. Physical Therapy Plan Frequency and Duration Frequency of Treatment 2x/Week Duration of Treatment 2 months Plan of Care Start Date 04/16/18 Plan of Care End Date 06/14/18 Therapeutic Interventions Therapeutic Interventions Aquatic Therapy Balance Training Gait Training Home Exercise Program Joint Mobilizations Manual Therapy Neuromuscular Re-education Patient/Caregiver Education Self-Care/Home Management Soft Tissue Mobilization Taping Therapeutic Activities Therapeutic Exercises Modalities Cold Pack/Ice Massage Electric Stimulation Hot Packs Traction- Mechanical Ultrasound Next Visit Focus/Plan Next Note Type Progress Note Next Visit Plan assess lifting mechanics, PNF & soft tissue to QL Plan of Care Dates Plan of Care Start Date 04/16/18 Plan of Care End Date 06/14/18 Please Sign and Return: I have reviewed this Plan of Care and certify that the skilled therapy services above are required to meet the patient?s needs. Physician Signature Date Printed Name and Credentials Clinical Instructor Signature Printed Name and Credentials
--- NOTE | 2018-05-07 11:25 | PT.OTN ---
Current Diagnoses Low back pain (05/07/18) Physical Therapy Treatment Note PT-OP-A Visit Information Start: 02/11/18 11:12 Freq: Status: Active Protocol: Document 05/07/18 11:08 (Rec: 05/07/18 11:25 [email or web address]) Out-Patient Physical Therapy Visit Information Visit Information Visit Type Treatment Note Visit Start Time 10:30 Visit Stop Time 11:25 Visit Number 2/ Number of REGRINDER Visits 1 PT-OP-B Current Condition Start: 02/11/18 11:12 Freq: Status: Active Protocol: Document 02/12/18 09:46 [facility] (Rec: 02/12/18 10:47 [facility] [id number]) Current Condition History of Current Condition Onset Date a few months ago Current Complaints LBP History of Current Condition Pt reports she fell when chasing a runaway suitcase going down hill that pulled her hard and she landed flat on her back. This was a few months ago and she has had back pain since this and it is not getting better with her trying to do stretches. Reports when she gets up from sitting, it takes her a while to get fully straight. Pt reports being distracted during daily activity d/t pain and gets fatigued quicker. has been doing vacuuming and some of the harder household tasks. Pt reports back pain years ago but went away and was never a lasting thing. Reports she was in hospital for back pain one time because she turned to close the car door and had inc pain. Pt reports this was probably about 15 years or more. Pt has hx of R bunionectomy about 30 years ago. Pt reports hx of D&C about 33 years ago. Pt reports she hit her toe in the past week on L but it is starting to feel better. 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 PT-OP-C Subjective Start: 02/11/18 11:12 Freq: Status: Active Protocol: Document 05/07/18 11:08 [facility] (Rec: 05/07/18 11:25 [email or web address]) OP-PT Subjective Patient Comments Patient Comments Pt states getting in/out of car and bed are much less painful. Just got back from trip and was not as consistent with HEP as she hoped to be but overall sx are improving. PT-OP-F Manual Assessment Start: 02/11/18 11:12 Freq: Status: Active Protocol: Document 02/12/18 09:46 [facility] (Rec: 02/12/18 10:47 [facility] [id number]) Manual Assessments Soft Tissue Assessment Soft Tissue Mobility Assessment TIghtness in QL, ES, piriformis & glutes R>L Joint Mobility Assessment Joint Mobility Assessment R iliac crest elevated and ant ; even greater trochanter height PT-OP-G Mobility & Gait Start: 02/11/18 11:12 Freq: Status: Active Protocol: Document 02/12/18 09:46 [facility] (Rec: 02/12/18 10:47 [facility] [id number]) OP Gait Assessment Comments Gait Comments Leg walker primarily; Rotation of R pelvis with RLE push off , fwd trunk lean PT-OP-J Posture/Palpation/Skin Start: 02/11/18 11:12 Freq: Status: Active Protocol: Document 04/16/18 12:13 [facility] (Rec: 04/16/18 13:04 [facility] [id number]) Posture Evaluation Tasneem Postural Classification System Vertebral Compression Test 2 Elbow Flexion Test 2 Lumbar Protective Mechanism Left AP 1 Lumbar Protective Mechanism Right AP 3 Lumbar Protective Mechanism Left PA 3 Lumbar Protective Mechanism Right PA 3 PT-OP-K Range of Motion Start: 02/11/18 11:12 Freq: Status: Active Protocol: Document 04/16/18 12:13 [facility] (Rec: 04/16/18 13:04 [facility] [id number]) Lumbar Spine Range of Motion Lumbar Spine Active Degrees Flexion 53 Extension 17 Rotation Left 30 Rotation Right 30 Lateral Flexion Left 26 Lateral Flexion Right 24 Comments PULL B w/SB R PT-OP-L Special Tests Start: 02/11/18 11:12 Freq: Status: Active Protocol: Document 02/12/18 09:46 [facility] (Rec: 02/12/18 10:47 [facility] [id number]) Special Tests Lumbar Spine Special Tests Slump Test Results neg Straight Leg Raise Test Results neg b PT-OP-M Strength Start: 02/11/18 11:12 Freq: Status: Active Protocol: Document 04/16/18 12:13 [facility] (Rec: 04/16/18 13:04 [facility] [id number]) Hip Strength Hip Manual Muscle Testing Right Flexion (L2) 4 Good Extension (S1) 4- Good- Abduction 4+ Good+ External Rotation 4+ Good+ Internal Rotation 5 Normal Left Flexion (L2) 4+ Good+ Extension (S1) 3+ Fair+ Abduction 4+ Good+ External Rotation 4+ Good+ Internal Rotation 5 Normal Knee Strength Knee Manual Muscle Testing Left Flexion (S2) 5 Normal Extension (L3) 5 Normal Right Flexion (S2) 5 Normal Extension (L3) 5 Normal PT-OP-Q Treatments Start: 02/11/18 11:12 Freq: Status: Active Protocol: Document 05/07/18 11:08 [facility] (Rec: 05/07/18 11:25 [facility] [id number]) Cardio Equipment Recumbent Bicycle Duration (Minutes) 7 Resistance 5 Seat Position pillow behind back, seat all the way forward Therapeutic Exercises Supine Exercises figure 4 stretch Supine Exercise Name figure 4 stretch Reps/Minutes 30 x 2 marching Supine Exercise Name march w/ER Side bilateral Reps/Minutes 10x Standing Exercises Standing hip ABD Side bilateral Resistance Yellow TB Reps/Minutes 12x hip exrt Standing Exercise Name hip ext at counter Side bilateral Equipment Used Yellow TB Reps/Minutes 12x lunges Standing Exercise Name lunges mini Side bilateral Reps/Minutes 15x squats Standing Exercise Name at bar Reps/Minutes 15x Comments no pain Manual Therapy Treatment Soft Tissue Mobilization QL Body Location QL/ lumbar paraspinals Mobilization Type Myofascial Release Rolling Strumming Intensity/Depth Moderate Comments R side focus PT-OP-R Modalities Start: 02/11/18 11:12 Freq: Status: Active Protocol: Document 05/07/18 11:08 (Rec: 05/07/18 11:25 [email or web address]) Electric Stimulation Electric Stimulation Interferential Current (IFC) Body Location IFC with MHP to the lower back and sacral region Duration (Minutes) 15 Patient Position Sidelying Combined With Heat/Cold Hot Pack PT-OP-T Assessment and Plan Start: 02/11/18 11:12 Freq: Status: Active Protocol: Document 05/07/18 11:08 [facility] (Rec: 05/07/18 11:25 [email or web address]) Physical Therapy Assessment Assessment Summary Assessment Review of lifting mechanics. Education for neutral lumbar spine with core stabilization. Pt with decreasing symptoms overall and no pain with transitional movements. Physical Therapy Plan Next Visit Focus/Plan Next Note Type Treatment Note Next Visit Plan Continue to progress hip/core stability, QL STM as needed and body mechanics review.
--- NOTE | 2018-05-13 11:29 | PT.OTN ---
Current Diagnoses Low back pain (05/13/18) Physical Therapy Treatment Note PT-OP-A Visit Information Start: 02/11/18 11:12 Freq: Status: Active Protocol: Document 05/13/18 10:35 [facility] (Rec: 05/13/18 11:28 [facility] [id number]) Out-Patient Physical Therapy Visit Information Visit Information Visit Type Treatment Note Visit Start Time 10:30 Visit Stop Time 11:25 Total Visit Minutes 55 Visit Number 3/10 Number of RACKING MACHINE OPERATOR Visits 0 PT-OP-B Current Condition Start: 02/11/18 11:12 Freq: Status: Active Protocol: Document 02/12/18 09:46 [facility] (Rec: 02/12/18 10:47 [facility] [id number]) Current Condition History of Current Condition Onset Date a few months ago Current Complaints LBP History of Current Condition Pt reports she fell when chasing a runaway suitcase going down hill that pulled her hard and she landed flat on her back. This was a few months ago and she has had back pain since this and it is not getting better with her trying to do stretches. Reports when she gets up from sitting, it takes her a while to get fully straight. Pt reports being distracted during daily activity d/t pain and gets fatigued quicker. has been doing vacuuming and some of the harder household tasks. Pt reports back pain years ago but went away and was never a lasting thing. Reports she was in hospital for back pain one time because she turned to close the car door and had inc pain. Pt reports this was probably about 15 years or more. Pt has hx of R bunionectomy about 30 years ago. Pt reports hx of D&C about 33 years ago. Pt reports she hit her toe in the past week on L but it is starting to feel better. 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 PT-OP-C Subjective Start: 02/11/18 11:12 Freq: Status: Active Protocol: Document 05/13/18 10:35 [facility] (Rec: 05/13/18 11:28 [facility] [id number]) OP-PT Subjective Patient Comments Patient Comments Pt reports certain moves but she is unsure which ones that seem to aggrevate it. Overall feels like she is doing better . Pt reports some of her exercises make her exercise make her upper back hurt. Patient Reported Progress Improving PT-OP-F Manual Assessment Start: 02/11/18 11:12 Freq: Status: Active Protocol: Document 02/12/18 09:46 [facility] (Rec: 02/12/18 10:47 [facility] [id number]) Manual Assessments Soft Tissue Assessment Soft Tissue Mobility Assessment TIghtness in QL, ES, piriformis & glutes R>L Joint Mobility Assessment Joint Mobility Assessment R iliac crest elevated and ant ; even greater trochanter height PT-OP-G Mobility & Gait Start: 02/11/18 11:12 Freq: Status: Active Protocol: Document 02/12/18 09:46 [facility] (Rec: 02/12/18 10:47 [facility] [id number]) OP Gait Assessment Comments Gait Comments Leg walker primarily; Rotation of R pelvis with RLE push off , fwd trunk lean PT-OP-J Posture/Palpation/Skin Start: 02/11/18 11:12 Freq: Status: Active Protocol: Document 04/16/18 12:13 [facility] (Rec: 04/16/18 13:04 [facility] [id number]) Posture Evaluation Tasneem Postural Classification System Vertebral Compression Test 2 Elbow Flexion Test 2 Lumbar Protective Mechanism Left AP 1 Lumbar Protective Mechanism Right AP 3 Lumbar Protective Mechanism Left PA 3 Lumbar Protective Mechanism Right PA 3 PT-OP-K Range of Motion Start: 02/11/18 11:12 Freq: Status: Active Protocol: Document 04/16/18 12:13 [facility] (Rec: 04/16/18 13:04 [facility] [id number]) Lumbar Spine Range of Motion Lumbar Spine Active Degrees Flexion 53 Extension 17 Rotation Left 30 Rotation Right 30 Lateral Flexion Left 26 Lateral Flexion Right 24 Comments PULL B w/SB R PT-OP-L Special Tests Start: 02/11/18 11:12 Freq: Status: Active Protocol: Document 02/12/18 09:46 [facility] (Rec: 02/12/18 10:47 [facility] [id number]) Special Tests Lumbar Spine Special Tests Slump Test Results neg Straight Leg Raise Test Results neg b PT-OP-M Strength Start: 02/11/18 11:12 Freq: Status: Active Protocol: Document 04/16/18 12:13 [facility] (Rec: 04/16/18 13:04 [facility] [id number]) Hip Strength Hip Manual Muscle Testing Right Flexion (L2) 4 Good Extension (S1) 4- Good- Abduction 4+ Good+ External Rotation 4+ Good+ Internal Rotation 5 Normal Left Flexion (L2) 4+ Good+ Extension (S1) 3+ Fair+ Abduction 4+ Good+ External Rotation 4+ Good+ Internal Rotation 5 Normal Knee Strength Knee Manual Muscle Testing Left Flexion (S2) 5 Normal Extension (L3) 5 Normal Right Flexion (S2) 5 Normal Extension (L3) 5 Normal PT-OP-Q Treatments Start: 02/11/18 11:12 Freq: Status: Active Protocol: Document 05/13/18 10:35 [facility] (Rec: 05/13/18 11:28 [facility] [id number]) Cardio Equipment Recumbent Bicycle Duration (Minutes) 5 Resistance 5 Seat Position pillow behind back, seat all the way forward Therapeutic Exercises Supine Exercises 2 Supine Exercise Name isometric hip flex & diagonal press Side bilateral Reps/Minutes 30 sec Comments single leg 1 Supine Exercise Name piriformis stretch Side right Reps/Minutes 30 sec hold Manual Therapy Treatment Soft Tissue Mobilization QL Body Location QL/ lumbar paraspinals Mobilization Type Myofascial Release Rolling Strumming Intensity/Depth Moderate Comments R side focus Joint Mobilizations sacrum Joint sacrum Direction caudal & PA FM innominate Joint innominate L Direction caudal, IR & ext FM Neuro Re-Education Treatment Other Activities PNF Details ant elevation & post depression Comments rhythmic initiation progressed to combo of isotonics w/ progression to LE pattern w post depression PT-OP-R Modalities Start: 02/11/18 11:12 Freq: Status: Active Protocol: Document 05/13/18 10:35 [facility] (Rec: 05/13/18 11:28 [facility] [id number]) Electric Stimulation Electric Stimulation Interferential Current (IFC) Body Location IFC with MHP to the lower back and sacral region Duration (Minutes) 15 Patient Position Sidelying Combined With Heat/Cold Hot Pack PT-OP-T Assessment and Plan Start: 02/11/18 11:12 Freq: Status: Active Protocol: Document 05/13/18 10:35 [facility] (Rec: 05/13/18 11:28 [facility] [id number]) Physical Therapy Assessment Goals ROM Halfway Goal (LTG) ROM to WNL to allow pt to do ADLs without pain LTG Duration achieved activity Short Term Goal (STG) Pt will demonstrate good lifting mechanics. STG Duration 05/13/18 Halfway Goal (LTG) Pt will be able to return to normal daily activities without inc pain or fatigue. LTG Duration 06/13/18-improved activity tolerance strength Short Term Goal (STG) Indep with HEP STG Duration 03/15/18-achieved advancing as needed Halfway Goal (LTG) Pt will have 5/5 LE strength & 4/5 LPM, EFT & VCT to demonstrate improved core stability to allow pt to do normal daily activities without pain. LTG Duration 06/13/18-improving Assessment Summary Assessment Pt able to do hip isometric flex for abdominal control without pain when cxueing for appropriate position. She had dec pain after manual thearpy. Physical Therapy Plan Frequency and Duration Frequency of Treatment 2x/Week Duration of Treatment 2 months Plan of Care Start Date 04/16/18 Plan of Care End Date 06/14/18 Next Visit Focus/Plan Next Note Type Treatment Note Next Visit Plan work on piriformis R
--- NOTE | 2018-05-18 14:15 | PT.OTN ---
Current Diagnoses Low back pain (05/18/18) Physical Therapy Treatment Note PT-OP-A Visit Information Start: 02/11/18 11:12 Freq: Status: Active Protocol: Document 05/18/18 10:35 [facility] (Rec: 05/18/18 14:15 [facility] [id number]) Out-Patient Physical Therapy Visit Information Visit Information Visit Type Treatment Note Visit Start Time 10:30 Visit Stop Time 11:25 Total Visit Minutes 55 Visit Number 4/10 Number of LEVEL VIAL GRINDER Visits 0 PT-OP-B Current Condition Start: 02/11/18 11:12 Freq: Status: Active Protocol: Document 02/12/18 09:46 [facility] (Rec: 02/12/18 10:47 [facility] [id number]) Current Condition History of Current Condition Onset Date a few months ago Current Complaints LBP History of Current Condition Pt reports she fell when chasing a runaway suitcase going down hill that pulled her hard and she landed flat on her back. This was a few months ago and she has had back pain since this and it is not getting better with her trying to do stretches. Reports when she gets up from sitting, it takes her a while to get fully straight. Pt reports being distracted during daily activity d/t pain and gets fatigued quicker. has been doing vacuuming and some of the harder household tasks. Pt reports back pain years ago but went away and was never a lasting thing. Reports she was in hospital for back pain one time because she turned to close the car door and had inc pain. Pt reports this was probably about 15 years or more. Pt has hx of R bunionectomy about 30 years ago. Pt reports hx of D&C about 33 years ago. Pt reports she hit her toe in the past week on L but it is starting to feel better. 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 PT-OP-C Subjective Start: 02/11/18 11:12 Freq: Status: Active Protocol: Document 05/18/18 10:35 [facility] (Rec: 05/18/18 14:15 [facility] [id number]) OP-PT Subjective Patient Comments Patient Comments Pt reports after last session, she had some greater ease with putting on shoes etc, but its still quite difficult. She is feeling stronger. PT-OP-F Manual Assessment Start: 02/11/18 11:12 Freq: Status: Active Protocol: Document 02/12/18 09:46 [facility] (Rec: 02/12/18 10:47 [facility] [id number]) Manual Assessments Soft Tissue Assessment Soft Tissue Mobility Assessment TIghtness in QL, ES, piriformis & glutes R>L Joint Mobility Assessment Joint Mobility Assessment R iliac crest elevated and ant ; even greater trochanter height PT-OP-G Mobility & Gait Start: 02/11/18 11:12 Freq: Status: Active Protocol: Document 02/12/18 09:46 [facility] (Rec: 02/12/18 10:47 [facility] [id number]) OP Gait Assessment Comments Gait Comments Leg walker primarily; Rotation of R pelvis with RLE push off , fwd trunk lean PT-OP-J Posture/Palpation/Skin Start: 02/11/18 11:12 Freq: Status: Active Protocol: Document 04/16/18 12:13 [facility] (Rec: 04/16/18 13:04 [facility] [id number]) Posture Evaluation Tasneem Postural Classification System Vertebral Compression Test 2 Elbow Flexion Test 2 Lumbar Protective Mechanism Left AP 1 Lumbar Protective Mechanism Right AP 3 Lumbar Protective Mechanism Left PA 3 Lumbar Protective Mechanism Right PA 3 PT-OP-K Range of Motion Start: 02/11/18 11:12 Freq: Status: Active Protocol: Document 04/16/18 12:13 [facility] (Rec: 04/16/18 13:04 [facility] [id number]) Lumbar Spine Range of Motion Lumbar Spine Active Degrees Flexion 53 Extension 17 Rotation Left 30 Rotation Right 30 Lateral Flexion Left 26 Lateral Flexion Right 24 Comments PULL B w/SB R PT-OP-L Special Tests Start: 02/11/18 11:12 Freq: Status: Active Protocol: Document 02/12/18 09:46 [facility] (Rec: 02/12/18 10:47 [facility] [id number]) Special Tests Lumbar Spine Special Tests Slump Test Results neg Straight Leg Raise Test Results neg b PT-OP-M Strength Start: 02/11/18 11:12 Freq: Status: Active Protocol: Document 04/16/18 12:13 [facility] (Rec: 04/16/18 13:04 [facility] [id number]) Hip Strength Hip Manual Muscle Testing Right Flexion (L2) 4 Good Extension (S1) 4- Good- Abduction 4+ Good+ External Rotation 4+ Good+ Internal Rotation 5 Normal Left Flexion (L2) 4+ Good+ Extension (S1) 3+ Fair+ Abduction 4+ Good+ External Rotation 4+ Good+ Internal Rotation 5 Normal Knee Strength Knee Manual Muscle Testing Left Flexion (S2) 5 Normal Extension (L3) 5 Normal Right Flexion (S2) 5 Normal Extension (L3) 5 Normal PT-OP-Q Treatments Start: 02/11/18 11:12 Freq: Status: Active Protocol: Document 05/18/18 10:35 [facility] (Rec: 05/18/18 14:15 [facility] [id number]) Cardio Equipment Recumbent Bicycle Duration (Minutes) 5 Resistance 5 Seat Position pillow behind back, seat all the way forward Therapeutic Exercises Sitting Exercises figure 4 Sitting Exercise Name figure 4 stretch Side right Reps/Minutes 30 sec Standing Exercises hip hinge Standing Exercise Name hip hinge Side bilateral Reps/Minutes 20 Comments w/yard stick on back squats Standing Exercise Name over chair Reps/Minutes 15 Comments in painfree range Manual Therapy Treatment Soft Tissue Mobilization piriformis Body Location piriformis R Mobilization Type Rolling Intensity/Depth Moderate Joint Mobilizations sacrum Joint sacrum Direction caudal & PA FM innominate Joint innominate R Direction ER FM hip Joint hip Direction on axis ER & IR FM w/neuro re edu for range PT-OP-R Modalities Start: 02/11/18 11:12 Freq: Status: Active Protocol: Document 05/18/18 10:35 [facility] (Rec: 05/18/18 14:15 [facility] [id number]) Electric Stimulation Electric Stimulation Interferential Current (IFC) Body Location IFC with MHP to the lower back and sacral region Duration (Minutes) 15 Patient Position Sidelying Combined With Heat/Cold Hot Pack PT-OP-T Assessment and Plan Start: 02/11/18 11:12 Freq: Status: Active Protocol: Document 05/18/18 10:35 [facility] (Rec: 05/18/18 14:15 [facility] [id number]) Physical Therapy Assessment Goals activity Short Term Goal (STG) Pt will demonstrate good lifting mechanics. STG Duration 05/13/18 [employer] Crm Developer Goal (LTG) Pt will be able to return to normal daily activities without inc pain or fatigue. LTG Duration 06/13/18-improved activity tolerance strength Short Term Goal (STG) Indep with HEP STG Duration 03/15/18-achieved advancing as needed [employer] Crm Developer Goal (LTG) Pt will have 5/5 LE strength & 4/5 LPM, EFT & VCT to demonstrate improved core stability to allow pt to do normal daily activities without pain. LTG Duration 06/13/18-improving Assessment Summary Assessment Pt had no pain in supine with flex after mobilization but had difficulty in standing getting to flexed and ER position. Pt had significant difficulty with squatting initially and had LBP until started with hip hinge and progressed into a squat Physical Therapy Plan Frequency and Duration Frequency of Treatment 2x/Week Duration of Treatment 2 months Plan of Care Start Date 04/16/18 Plan of Care End Date 06/14/18 Next Visit Focus/Plan Next Note Type Treatment Note Next Visit Plan Cont to work on squat and sit to stand & work on hip & pelvis mobility on R side.
--- NOTE | 2018-05-20 11:40 | PT.OTN ---
Current Diagnoses Low back pain (05/20/18) Physical Therapy Treatment Note PT-OP-A Visit Information Start: 02/11/18 11:12 Freq: Status: Active Protocol: Document 05/20/18 10:35 [facility] (Rec: 05/20/18 11:40 [facility] [id number]) Out-Patient Physical Therapy Visit Information Visit Information Visit Type Treatment Note Visit Start Time 10:30 Visit Stop Time 11:25 Total Visit Minutes 55 Visit Number 5/10 Number of ENGINE TURNER Visits 0 PT-OP-B Current Condition Start: 02/11/18 11:12 Freq: Status: Active Protocol: Document 02/12/18 09:46 [facility] (Rec: 02/12/18 10:47 [facility] [id number]) Current Condition History of Current Condition Onset Date a few months ago Current Complaints LBP History of Current Condition Pt reports she fell when chasing a runaway suitcase going down hill that pulled her hard and she landed flat on her back. This was a few months ago and she has had back pain since this and it is not getting better with her trying to do stretches. Reports when she gets up from sitting, it takes her a while to get fully straight. Pt reports being distracted during daily activity d/t pain and gets fatigued quicker. has been doing vacuuming and some of the harder household tasks. Pt reports back pain years ago but went away and was never a lasting thing. Reports she was in hospital for back pain one time because she turned to close the car door and had inc pain. Pt reports this was probably about 15 years or more. Pt has hx of R bunionectomy about 30 years ago. Pt reports hx of D&C about 33 years ago. Pt reports she hit her toe in the past week on L but it is starting to feel better. 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 PT-OP-C Subjective Start: 02/11/18 11:12 Freq: Status: Active Protocol: Document 05/20/18 10:35 [facility] (Rec: 05/20/18 11:40 [facility] [id number]) OP-PT Subjective Patient Comments Patient Comments Pt reports it was a bit easier to do her pants the last couple days. Reports she didn' t sleep well the past 2 nights , unsure why. Reports sit to stand has been much better. PT-OP-F Manual Assessment Start: 02/11/18 11:12 Freq: Status: Active Protocol: Document 02/12/18 09:46 [facility] (Rec: 02/12/18 10:47 [facility] [id number]) Manual Assessments Soft Tissue Assessment Soft Tissue Mobility Assessment TIghtness in QL, ES, piriformis & glutes R>L Joint Mobility Assessment Joint Mobility Assessment R iliac crest elevated and ant ; even greater trochanter height PT-OP-G Mobility & Gait Start: 02/11/18 11:12 Freq: Status: Active Protocol: Document 02/12/18 09:46 [facility] (Rec: 02/12/18 10:47 [facility] [id number]) OP Gait Assessment Comments Gait Comments Leg walker primarily; Rotation of R pelvis with RLE push off , fwd trunk lean PT-OP-J Posture/Palpation/Skin Start: 02/11/18 11:12 Freq: Status: Active Protocol: Document 04/16/18 12:13 [facility] (Rec: 04/16/18 13:04 [facility] [id number]) Posture Evaluation Tasneem Postural Classification System Vertebral Compression Test 2 Elbow Flexion Test 2 Lumbar Protective Mechanism Left AP 1 Lumbar Protective Mechanism Right AP 3 Lumbar Protective Mechanism Left PA 3 Lumbar Protective Mechanism Right PA 3 PT-OP-K Range of Motion Start: 02/11/18 11:12 Freq: Status: Active Protocol: Document 04/16/18 12:13 [facility] (Rec: 04/16/18 13:04 [facility] [id number]) Lumbar Spine Range of Motion Lumbar Spine Active Degrees Flexion 53 Extension 17 Rotation Left 30 Rotation Right 30 Lateral Flexion Left 26 Lateral Flexion Right 24 Comments PULL B w/SB R PT-OP-L Special Tests Start: 02/11/18 11:12 Freq: Status: Active Protocol: Document 02/12/18 09:46 [facility] (Rec: 02/12/18 10:47 [facility] [id number]) Special Tests Lumbar Spine Special Tests Slump Test Results neg Straight Leg Raise Test Results neg b PT-OP-M Strength Start: 02/11/18 11:12 Freq: Status: Active Protocol: Document 04/16/18 12:13 [facility] (Rec: 04/16/18 13:04 [facility] [id number]) Hip Strength Hip Manual Muscle Testing Right Flexion (L2) 4 Good Extension (S1) 4- Good- Abduction 4+ Good+ External Rotation 4+ Good+ Internal Rotation 5 Normal Left Flexion (L2) 4+ Good+ Extension (S1) 3+ Fair+ Abduction 4+ Good+ External Rotation 4+ Good+ Internal Rotation 5 Normal Knee Strength Knee Manual Muscle Testing Left Flexion (S2) 5 Normal Extension (L3) 5 Normal Right Flexion (S2) 5 Normal Extension (L3) 5 Normal PT-OP-Q Treatments Start: 02/11/18 11:12 Freq: Status: Active Protocol: Document 05/20/18 10:35 [facility] (Rec: 05/20/18 11:40 [facility] [id number]) Therapeutic Exercises Supine Exercises figure 4 stretch Supine Exercise Name AROM Reps/Minutes 10 Standing Exercises march Standing Exercise Name controlled in mirror for control Side bilateral Reps/Minutes 10 squats Standing Exercise Name over chair & sit to stands Reps/Minutes 10 Comments in painfree range-full Manual Therapy Treatment Soft Tissue Mobilization 1 Body Location ITB R Mobilization Type Rolling Joint Mobilizations hip Joint hip Direction inf FM PT-OP-R Modalities Start: 02/11/18 11:12 Freq: Status: Active Protocol: Document 05/20/18 10:35 [facility] (Rec: 05/20/18 11:40 [facility] [id number]) Electric Stimulation Electric Stimulation Interferential Current (IFC) Body Location IFC with MHP to the lower back and sacral region Duration (Minutes) 15 Patient Position Sidelying Combined With Heat/Cold Hot Pack PT-OP-T Assessment and Plan Start: 02/11/18 11:12 Freq: Status: Active Protocol: Document 05/20/18 10:35 [facility] (Rec: 05/20/18 11:40 [facility] [id number]) Physical Therapy Assessment Goals activity Short Term Goal (STG) Pt will demonstrate good lifting mechanics. STG Duration 05/13/18 Fpc Goal (LTG) Pt will be able to return to normal daily activities without inc pain or fatigue. LTG Duration 06/13/18-improved activity tolerance strength Short Term Goal (STG) Indep with HEP STG Duration 03/15/18-achieved advancing as needed Fpc Goal (LTG) Pt will have 5/5 LE strength & 4/5 LPM, EFT & VCT to demonstrate improved core stability to allow pt to do normal daily activities without pain. LTG Duration 06/13/18-improving Assessment Summary Assessment Pt was able to do full squat and sit to stand today without c/o pain. She is able to go through passive flex & ER of R hip but is painful with AROM. she does have trouble with stability in standing & core control w/RLE movement Physical Therapy Plan Frequency and Duration Frequency of Treatment 2x/Week Duration of Treatment 2 months Plan of Care Start Date 04/16/18 Plan of Care End Date 06/14/18 Next Visit Focus/Plan Next Note Type Treatment Note Next Visit Plan cont to work on stability in SLS in standing and ability to flex w/ER
--- NOTE | 2018-05-25 11:26 | PT.OTN ---
Current Diagnoses Low back pain (05/25/18) Physical Therapy Treatment Note PT-OP-A Visit Information Start: 02/11/18 11:12 Freq: Status: Active Protocol: Document 05/25/18 10:31 [facility] (Rec: 05/25/18 11:26 [facility] [id number]) Out-Patient Physical Therapy Visit Information Visit Information Visit Type Treatment Note Visit Start Time 10:30 Visit Stop Time 11:25 Total Visit Minutes 55 Visit Number 6/10 Number of PRESIDENT AND CHIEF COMMERCIAL OFFICER Visits 0 PT-OP-B Current Condition Start: 02/11/18 11:12 Freq: Status: Active Protocol: Document 02/12/18 09:46 [facility] (Rec: 02/12/18 10:47 [facility] [id number]) Current Condition History of Current Condition Onset Date a few months ago Current Complaints LBP History of Current Condition Pt reports she fell when chasing a runaway suitcase going down hill that pulled her hard and she landed flat on her back. This was a few months ago and she has had back pain since this and it is not getting better with her trying to do stretches. Reports when she gets up from sitting, it takes her a while to get fully straight. Pt reports being distracted during daily activity d/t pain and gets fatigued quicker. has been doing vacuuming and some of the harder household tasks. Pt reports back pain years ago but went away and was never a lasting thing. Reports she was in hospital for back pain one time because she turned to close the car door and had inc pain. Pt reports this was probably about 15 years or more. Pt has hx of R bunionectomy about 30 years ago. Pt reports hx of D&C about 33 years ago. Pt reports she hit her toe in the past week on L but it is starting to feel better. 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 PT-OP-C Subjective Start: 02/11/18 11:12 Freq: Status: Active Protocol: Document 05/25/18 10:31 [facility] (Rec: 05/25/18 11:26 [facility] [id number]) OP-PT Subjective Patient Comments Patient Comments Pt reports she thinks she overdid it yesterday with shopping and geting in and out of the car. reports its worse today then its been recently. PT-OP-F Manual Assessment Start: 02/11/18 11:12 Freq: Status: Active Protocol: Document 02/12/18 09:46 [facility] (Rec: 02/12/18 10:47 [facility] [id number]) Manual Assessments Soft Tissue Assessment Soft Tissue Mobility Assessment TIghtness in QL, ES, piriformis & glutes R>L Joint Mobility Assessment Joint Mobility Assessment R iliac crest elevated and ant ; even greater trochanter height PT-OP-G Mobility & Gait Start: 02/11/18 11:12 Freq: Status: Active Protocol: Document 02/12/18 09:46 [facility] (Rec: 02/12/18 10:47 [facility] [id number]) OP Gait Assessment Comments Gait Comments Leg walker primarily; Rotation of R pelvis with RLE push off , fwd trunk lean PT-OP-J Posture/Palpation/Skin Start: 02/11/18 11:12 Freq: Status: Active Protocol: Document 04/16/18 12:13 [facility] (Rec: 04/16/18 13:04 [facility] [id number]) Posture Evaluation Tasneem Postural Classification System Vertebral Compression Test 2 Elbow Flexion Test 2 Lumbar Protective Mechanism Left AP 1 Lumbar Protective Mechanism Right AP 3 Lumbar Protective Mechanism Left PA 3 Lumbar Protective Mechanism Right PA 3 PT-OP-K Range of Motion Start: 02/11/18 11:12 Freq: Status: Active Protocol: Document 04/16/18 12:13 [facility] (Rec: 04/16/18 13:04 [facility] [id number]) Lumbar Spine Range of Motion Lumbar Spine Active Degrees Flexion 53 Extension 17 Rotation Left 30 Rotation Right 30 Lateral Flexion Left 26 Lateral Flexion Right 24 Comments PULL B w/SB R PT-OP-L Special Tests Start: 02/11/18 11:12 Freq: Status: Active Protocol: Document 02/12/18 09:46 [facility] (Rec: 02/12/18 10:47 [facility] [id number]) Special Tests Lumbar Spine Special Tests Slump Test Results neg Straight Leg Raise Test Results neg b PT-OP-M Strength Start: 02/11/18 11:12 Freq: Status: Active Protocol: Document 04/16/18 12:13 [facility] (Rec: 04/16/18 13:04 [facility] [id number]) Hip Strength Hip Manual Muscle Testing Right Flexion (L2) 4 Good Extension (S1) 4- Good- Abduction 4+ Good+ External Rotation 4+ Good+ Internal Rotation 5 Normal Left Flexion (L2) 4+ Good+ Extension (S1) 3+ Fair+ Abduction 4+ Good+ External Rotation 4+ Good+ Internal Rotation 5 Normal Knee Strength Knee Manual Muscle Testing Left Flexion (S2) 5 Normal Extension (L3) 5 Normal Right Flexion (S2) 5 Normal Extension (L3) 5 Normal PT-OP-Q Treatments Start: 02/11/18 11:12 Freq: Status: Active Protocol: Document 05/25/18 10:31 [facility] (Rec: 05/25/18 11:26 [facility] [id number]) Therapeutic Exercises Supine Exercises hip rotation Supine Exercise Name From figure 4 position Side right Reps/Minutes 10 Comments inc ROM then lifting foot and knee figure 4 stretch Reps/Minutes 30 sec hold marching Supine Exercise Name w/BLE starting extended Side bilateral Reps/Minutes 10 Comments focus on core Manual Therapy Treatment Soft Tissue Mobilization 1 Body Location iliacus R Mobilization Type Sustained Pressure Joint Mobilizations sacrum Joint sacrum Direction caudal & PA FM innominate Joint innominate R Direction ER FM B hip Joint hip Direction ER R hip on axis FM Comments w/neuro re edu isometric hold after PT-OP-R Modalities Start: 02/11/18 11:12 Freq: Status: Active Protocol: Document 05/25/18 10:31 [facility] (Rec: 05/25/18 11:26 [facility] [id number]) Electric Stimulation Electric Stimulation Interferential Current (IFC) Body Location IFC with MHP to the lower back and sacral region Duration (Minutes) 15 Patient Position Hooklying Combined With Heat/Cold Hot Pack PT-OP-T Assessment and Plan Start: 02/11/18 11:12 Freq: Status: Active Protocol: Document 05/25/18 10:31 [facility] (Rec: 05/25/18 11:26 [facility] [id number]) Physical Therapy Assessment Goals activity Short Term Goal (STG) Pt will demonstrate good lifting mechanics. STG Duration 05/13/18 Digitizer Goal (LTG) Pt will be able to return to normal daily activities without inc pain or fatigue. LTG Duration 06/13/18-improved activity tolerance strength Short Term Goal (STG) Indep with HEP STG Duration 03/15/18-achieved advancing as needed Mcfp Goal (LTG) Pt will have 5/5 LE strength & 4/5 LPM, EFT & VCT to demonstrate improved core stability to allow pt to do normal daily activities without pain. LTG Duration 06/13/18-improving Assessment Summary Assessment Pt able to do lift from figure 4 position today but cannot do it without LLE bent up, demonstrating dec core contorl . Dec pain and pressure in LB after manual. Physical Therapy Plan Frequency and Duration Frequency of Treatment 2x/Week Duration of Treatment 2 months Plan of Care Start Date 04/16/18 Plan of Care End Date 06/14/18 Next Visit Focus/Plan Next Note Type Treatment Note Next Visit Plan cont to work on stability in SLS in standing and ability to flex w/ER; assess getting in /out of car
--- NOTE | 2018-05-27 11:56 | PT.OTN ---
Current Diagnoses Low back pain (05/27/18) Physical Therapy Treatment Note PT-OP-A Visit Information Start: 02/11/18 11:12 Freq: Status: Active Protocol: Document 05/27/18 11:33 [facility] (Rec: 05/27/18 11:55 [facility] [id number]) Out-Patient Physical Therapy Visit Information Visit Information Visit Type Treatment Note Visit Start Time 10:30 Visit Stop Time 11:25 Total Visit Minutes 55 Visit Number 7/10 Number of OPERATIONS CONSULTANT Visits 0 PT-OP-B Current Condition Start: 02/11/18 11:12 Freq: Status: Active Protocol: Document 02/12/18 09:46 [facility] (Rec: 02/12/18 10:47 [facility] [id number]) Current Condition History of Current Condition Onset Date a few months ago Current Complaints LBP History of Current Condition Pt reports she fell when chasing a runaway suitcase going down hill that pulled her hard and she landed flat on her back. This was a few months ago and she has had back pain since this and it is not getting better with her trying to do stretches. Reports when she gets up from sitting, it takes her a while to get fully straight. Pt reports being distracted during daily activity d/t pain and gets fatigued quicker. has been doing vacuuming and some of the harder household tasks. Pt reports back pain years ago but went away and was never a lasting thing. Reports she was in hospital for back pain one time because she turned to close the car door and had inc pain. Pt reports this was probably about 15 years or more. Pt has hx of R bunionectomy about 30 years ago. Pt reports hx of D&C about 33 years ago. Pt reports she hit her toe in the past week on L but it is starting to feel better. 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 PT-OP-C Subjective Start: 02/11/18 11:12 Freq: Status: Active Protocol: Document 05/27/18 11:33 [facility] (Rec: 05/27/18 11:55 [facility] [id number]) OP-PT Subjective Patient Comments Patient Comments Pt reports in and out of the car is still difficult. Reports back is sore today. PT-OP-F Manual Assessment Start: 02/11/18 11:12 Freq: Status: Active Protocol: Document 02/12/18 09:46 [facility] (Rec: 02/12/18 10:47 [facility] [id number]) Manual Assessments Soft Tissue Assessment Soft Tissue Mobility Assessment TIghtness in QL, ES, piriformis & glutes R>L Joint Mobility Assessment Joint Mobility Assessment R iliac crest elevated and ant ; even greater trochanter height PT-OP-G Mobility & Gait Start: 02/11/18 11:12 Freq: Status: Active Protocol: Document 02/12/18 09:46 [facility] (Rec: 02/12/18 10:47 [facility] [id number]) OP Gait Assessment Comments Gait Comments Leg walker primarily; Rotation of R pelvis with RLE push off , fwd trunk lean PT-OP-J Posture/Palpation/Skin Start: 02/11/18 11:12 Freq: Status: Active Protocol: Document 04/16/18 12:13 [facility] (Rec: 04/16/18 13:04 [facility] [id number]) Posture Evaluation Tasneem Postural Classification System Vertebral Compression Test 2 Elbow Flexion Test 2 Lumbar Protective Mechanism Left AP 1 Lumbar Protective Mechanism Right AP 3 Lumbar Protective Mechanism Left PA 3 Lumbar Protective Mechanism Right PA 3 PT-OP-K Range of Motion Start: 02/11/18 11:12 Freq: Status: Active Protocol: Document 04/16/18 12:13 [facility] (Rec: 04/16/18 13:04 [facility] [id number]) Lumbar Spine Range of Motion Lumbar Spine Active Degrees Flexion 53 Extension 17 Rotation Left 30 Rotation Right 30 Lateral Flexion Left 26 Lateral Flexion Right 24 Comments PULL B w/SB R PT-OP-L Special Tests Start: 02/11/18 11:12 Freq: Status: Active Protocol: Document 02/12/18 09:46 [facility] (Rec: 02/12/18 10:47 [facility] [id number]) Special Tests Lumbar Spine Special Tests Slump Test Results neg Straight Leg Raise Test Results neg b PT-OP-M Strength Start: 02/11/18 11:12 Freq: Status: Active Protocol: Document 04/16/18 12:13 [facility] (Rec: 04/16/18 13:04 [facility] [id number]) Hip Strength Hip Manual Muscle Testing Right Flexion (L2) 4 Good Extension (S1) 4- Good- Abduction 4+ Good+ External Rotation 4+ Good+ Internal Rotation 5 Normal Left Flexion (L2) 4+ Good+ Extension (S1) 3+ Fair+ Abduction 4+ Good+ External Rotation 4+ Good+ Internal Rotation 5 Normal Knee Strength Knee Manual Muscle Testing Left Flexion (S2) 5 Normal Extension (L3) 5 Normal Right Flexion (S2) 5 Normal Extension (L3) 5 Normal PT-OP-Q Treatments Start: 02/11/18 11:12 Freq: Status: Active Protocol: Document 05/27/18 11:33 [facility] (Rec: 05/27/18 11:55 [facility] [id number]) Therapeutic Exercises Supine Exercises 2 Supine Exercise Name abdominal faciliation in D1 flex 1 Supine Exercise Name piriformis stretch Side right Reps/Minutes 30 sec hold Standing Exercises gait at wall Standing Exercise Name L post depression & R ant elevation Reps/Minutes 4 Comments w/faciliation march Standing Exercise Name controlled in mirror for control Side bilateral Reps/Minutes 10 Therapeutic Activity Therapeutic Activity car Name in/out of car Comments focus on core & feet under her Manual Therapy Treatment Soft Tissue Mobilization piriformis Body Location piriformis R Mobilization Type Rolling Intensity/Depth Moderate Comments w/c/r in supine Joint Mobilizations innominate Joint innominate L Direction ext FM Neuro Re-Education Treatment Other Activities PNF Details ant elevation & post depression L Comments rhythmic initiation progressed to combo of isotonics w/ progression to LE pattern w post depression PT-OP-R Modalities Start: 02/11/18 11:12 Freq: Status: Active Protocol: Document 05/27/18 11:33 [facility] (Rec: 05/27/18 11:55 [facility] [id number]) Electric Stimulation Electric Stimulation Interferential Current (IFC) Body Location IFC with MHP to the lower back and sacral region Duration (Minutes) 15 Patient Position Hooklying Combined With Heat/Cold Hot Pack PT-OP-T Assessment and Plan Start: 02/11/18 11:12 Freq: Status: Active Protocol: Document 05/27/18 11:33 [facility] (Rec: 05/27/18 11:55 [facility] [id number]) Physical Therapy Assessment Goals activity Short Term Goal (STG) Pt will demonstrate good lifting mechanics. STG Duration 05/13/18 Electrician Supervisor Goal (LTG) Pt will be able to return to normal daily activities without inc pain or fatigue. LTG Duration 06/13/18-improved activity tolerance strength Short Term Goal (STG) Indep with HEP STG Duration 03/15/18-achieved advancing as needed Electrician Supervisor Goal (LTG) Pt will have 5/5 LE strength & 4/5 LPM, EFT & VCT to demonstrate improved core stability to allow pt to do normal daily activities without pain. LTG Duration 06/13/18-improving Assessment Summary Assessment Pt improving with figure 4 position but cont to have weakness in this position. Improved faciliation and ROM of Post depression of LLE and pelvis with neuro re edu Physical Therapy Plan Frequency and Duration Frequency of Treatment 2x/Week Duration of Treatment 2 months Plan of Care Start Date 04/16/18 Plan of Care End Date 06/14/18 Next Visit Focus/Plan Next Note Type Treatment Note Next Visit Plan cont to work on weight acceptance in LLE
--- NOTE | 2018-06-04 16:07 | PT.OTN ---
Current Diagnoses Low back pain (06/04/18) Physical Therapy Treatment Note PT-OP-A Visit Information Start: 02/11/18 11:12 Freq: Status: Active Protocol: Document 06/04/18 16:02 [facility] (Rec: 06/04/18 16:06 [facility] [id number]) Out-Patient Physical Therapy Visit Information Visit Information Visit Type Treatment Note Visit Start Time 14:30 Visit Stop Time 15:25 Total Visit Minutes 55 Visit Number 8/10 Number of LOCK MAINTENANCE SUPERVISOR Visits 0 PT-OP-B Current Condition Start: 02/11/18 11:12 Freq: Status: Active Protocol: Document 02/12/18 09:46 [facility] (Rec: 02/12/18 10:47 [facility] [id number]) Current Condition History of Current Condition Onset Date a few months ago Current Complaints LBP History of Current Condition Pt reports she fell when chasing a runaway suitcase going down hill that pulled her hard and she landed flat on her back. This was a few months ago and she has had back pain since this and it is not getting better with her trying to do stretches. Reports when she gets up from sitting, it takes her a while to get fully straight. Pt reports being distracted during daily activity d/t pain and gets fatigued quicker. has been doing vacuuming and some of the harder household tasks. Pt reports back pain years ago but went away and was never a lasting thing. Reports she was in hospital for back pain one time because she turned to close the car door and had inc pain. Pt reports this was probably about 15 years or more. Pt has hx of R bunionectomy about 30 years ago. Pt reports hx of D&C about 33 years ago. Pt reports she hit her toe in the past week on L but it is starting to feel better. 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 PT-OP-C Subjective Start: 02/11/18 11:12 Freq: Status: Active Protocol: Document 06/04/18 16:02 [facility] (Rec: 06/04/18 16:06 [facility] [id number]) OP-PT Subjective Patient Comments Patient Comments Pt notes she has been feeling better since last time PT-OP-F Manual Assessment Start: 02/11/18 11:12 Freq: Status: Active Protocol: Document 02/12/18 09:46 [facility] (Rec: 02/12/18 10:47 [facility] [id number]) Manual Assessments Soft Tissue Assessment Soft Tissue Mobility Assessment TIghtness in QL, ES, piriformis & glutes R>L Joint Mobility Assessment Joint Mobility Assessment R iliac crest elevated and ant ; even greater trochanter height PT-OP-G Mobility & Gait Start: 02/11/18 11:12 Freq: Status: Active Protocol: Document 02/12/18 09:46 [facility] (Rec: 02/12/18 10:47 [facility] [id number]) OP Gait Assessment Comments Gait Comments Leg walker primarily; Rotation of R pelvis with RLE push off , fwd trunk lean PT-OP-J Posture/Palpation/Skin Start: 02/11/18 11:12 Freq: Status: Active Protocol: Document 04/16/18 12:13 [facility] (Rec: 04/16/18 13:04 [facility] [id number]) Posture Evaluation Tasneem Postural Classification System Vertebral Compression Test 2 Elbow Flexion Test 2 Lumbar Protective Mechanism Left AP 1 Lumbar Protective Mechanism Right AP 3 Lumbar Protective Mechanism Left PA 3 Lumbar Protective Mechanism Right PA 3 PT-OP-K Range of Motion Start: 02/11/18 11:12 Freq: Status: Active Protocol: Document 04/16/18 12:13 [facility] (Rec: 04/16/18 13:04 [facility] [id number]) Lumbar Spine Range of Motion Lumbar Spine Active Degrees Flexion 53 Extension 17 Rotation Left 30 Rotation Right 30 Lateral Flexion Left 26 Lateral Flexion Right 24 Comments PULL B w/SB R PT-OP-L Special Tests Start: 02/11/18 11:12 Freq: Status: Active Protocol: Document 02/12/18 09:46 [facility] (Rec: 02/12/18 10:47 [facility] [id number]) Special Tests Lumbar Spine Special Tests Slump Test Results neg Straight Leg Raise Test Results neg b PT-OP-M Strength Start: 02/11/18 11:12 Freq: Status: Active Protocol: Document 04/16/18 12:13 [facility] (Rec: 04/16/18 13:04 [facility] [id number]) Hip Strength Hip Manual Muscle Testing Right Flexion (L2) 4 Good Extension (S1) 4- Good- Abduction 4+ Good+ External Rotation 4+ Good+ Internal Rotation 5 Normal Left Flexion (L2) 4+ Good+ Extension (S1) 3+ Fair+ Abduction 4+ Good+ External Rotation 4+ Good+ Internal Rotation 5 Normal Knee Strength Knee Manual Muscle Testing Left Flexion (S2) 5 Normal Extension (L3) 5 Normal Right Flexion (S2) 5 Normal Extension (L3) 5 Normal PT-OP-Q Treatments Start: 02/11/18 11:12 Freq: Status: Active Protocol: Document 06/04/18 16:02 [facility] (Rec: 06/04/18 16:06 [facility] [id number]) Therapeutic Exercises Standing Exercises gait at wall Standing Exercise Name L post depression & R ant elevation Reps/Minutes 4 Comments w/faciliation april Standing Exercise Name controlled in mirror for control Side bilateral Reps/Minutes 10 Manual Therapy Treatment Soft Tissue Mobilization QL Body Location L QL Mobilization Type Rolling Intensity/Depth Moderate Body Position Sidelying Neuro Re-Education Treatment Other Activities PNF Details ant elevation & post depression L Comments rhythmic initiation progressed to combo of isotonics w/ progression to LE pattern w post depression PT-OP-R Modalities Start: 02/11/18 11:12 Freq: Status: Active Protocol: Document 06/04/18 16:02 [facility] (Rec: 06/04/18 16:06 [facility] [id number]) Electric Stimulation Electric Stimulation Interferential Current (IFC) Body Location IFC with MHP to the lower back and sacral region Duration (Minutes) 15 Patient Position Hooklying Combined With Heat/Cold Hot Pack PT-OP-T Assessment and Plan Start: 02/11/18 11:12 Freq: Status: Active Protocol: Document 06/04/18 16:02 [facility] (Rec: 06/04/18 16:06 [facility] [id number]) Physical Therapy Assessment Goals activity Short Term Goal (STG) Pt will demonstrate good lifting mechanics. STG Duration 05/13/18 Retirement Goal (LTG) Pt will be able to return to normal daily activities without inc pain or fatigue. LTG Duration 06/13/18-improved activity tolerance strength Short Term Goal (STG) Indep with HEP STG Duration 03/15/18-achieved advancing as needed Numerical Control Drill Press Operator Goal (LTG) Pt will have 5/5 LE strength & 4/5 LPM, EFT & VCT to demonstrate improved core stability to allow pt to do normal daily activities without pain. LTG Duration 06/13/18-improving Assessment Summary Assessment Pt is improvingw ith ability to lift her RLE in standing and improved wt acceptance onto LLE. Physical Therapy Plan Frequency and Duration Frequency of Treatment 2x/Week Duration of Treatment 2 months Plan of Care Start Date 04/16/18 Plan of Care End Date 06/14/18 Next Visit Focus/Plan Next Note Type Progress Note Next Visit Plan cont to work on core faciliation & PNF
--- NOTE | 2018-06-15 16:44 | PT.OTN ---
Current Diagnoses Low back pain (06/15/18) Physical Therapy Treatment Note PT-OP-A Visit Information Start: 02/11/18 11:12 Freq: Status: Active Protocol: Document 06/15/18 14:39 [facility] (Rec: 06/15/18 16:44 [facility] [id number]) Out-Patient Physical Therapy Visit Information Visit Information Visit Type Progress Note Visit Start Time 14:40 Visit Stop Time 15:33 Total Visit Minutes 53 Visit Number 03/11 Number of CHICKEN RAISER Visits 0 PT-OP-B Current Condition Start: 02/11/18 11:12 Freq: Status: Active Protocol: Document 02/12/18 09:46 [facility] (Rec: 02/12/18 10:47 [facility] [id number]) Current Condition History of Current Condition Onset Date a few months ago Current Complaints LBP History of Current Condition Pt reports she fell when chasing a runaway suitcase going down hill that pulled her hard and she landed flat on her back. This was a few months ago and she has had back pain since this and it is not getting better with her trying to do stretches. Reports when she gets up from sitting, it takes her a while to get fully straight. Pt reports being distracted during daily activity d/t pain and gets fatigued quicker. has been doing vacuuming and some of the harder household tasks. Pt reports back pain years ago but went away and was never a lasting thing. Reports she was in hospital for back pain one time because she turned to close the car door and had inc pain. Pt reports this was probably about 15 years or more. Pt has hx of R bunionectomy about 30 years ago. Pt reports hx of D&C about 33 years ago. Pt reports she hit her toe in the past week on L but it is starting to feel better. 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 PT-OP-C Subjective Start: 02/11/18 11:12 Freq: Status: Active Protocol: Document 06/15/18 14:39 [facility] (Rec: 06/15/18 16:44 [facility] [id number]) OP-PT Subjective Patient Comments Patient Comments Pt reports getting pants on is easier than when she started but still pain with inc activity. PT-OP-F Manual Assessment Start: 02/11/18 11:12 Freq: Status: Active Protocol: Document 02/12/18 09:46 [facility] (Rec: 02/12/18 10:47 [facility] [id number]) Manual Assessments Soft Tissue Assessment Soft Tissue Mobility Assessment TIghtness in QL, ES, piriformis & glutes R>L Joint Mobility Assessment Joint Mobility Assessment R iliac crest elevated and ant ; even greater trochanter height PT-OP-G Mobility & Gait Start: 02/11/18 11:12 Freq: Status: Active Protocol: Document 02/12/18 09:46 [facility] (Rec: 02/12/18 10:47 [facility] [id number]) OP Gait Assessment Comments Gait Comments Leg walker primarily; Rotation of R pelvis with RLE push off , fwd trunk lean PT-OP-J Posture/Palpation/Skin Start: 02/11/18 11:12 Freq: Status: Active Protocol: Document 04/16/18 12:13 [facility] (Rec: 04/16/18 13:04 [facility] [id number]) Posture Evaluation Tasneem Postural Classification System Vertebral Compression Test 2 Elbow Flexion Test 2 Lumbar Protective Mechanism Left AP 1 Lumbar Protective Mechanism Right AP 3 Lumbar Protective Mechanism Left PA 3 Lumbar Protective Mechanism Right PA 3 PT-OP-K Range of Motion Start: 02/11/18 11:12 Freq: Status: Active Protocol: Document 04/16/18 12:13 [facility] (Rec: 04/16/18 13:04 [facility] [id number]) Lumbar Spine Range of Motion Lumbar Spine Active Degrees Flexion 53 Extension 17 Rotation Left 30 Rotation Right 30 Lateral Flexion Left 26 Lateral Flexion Right 24 Comments PULL B w/SB R PT-OP-L Special Tests Start: 02/11/18 11:12 Freq: Status: Active Protocol: Document 02/12/18 09:46 [facility] (Rec: 02/12/18 10:47 [facility] [id number]) Special Tests Lumbar Spine Special Tests Slump Test Results neg Straight Leg Raise Test Results neg b PT-OP-M Strength Start: 02/11/18 11:12 Freq: Status: Active Protocol: Document 06/15/18 14:39 [facility] (Rec: 06/15/18 16:44 [facility] [id number]) Hip Strength Hip Manual Muscle Testing Right Flexion (L2) 4 Good Extension (S1) 4- Good- External Rotation 4+ Good+ Internal Rotation 5 Normal Left Flexion (L2) 4+ Good+ Extension (S1) 4- Good- Abduction 4+ Good+ External Rotation 5 Normal Internal Rotation 5 Normal Knee Strength Knee Manual Muscle Testing Left Flexion (S2) 5 Normal Extension (L3) 5 Normal Right Flexion (S2) 5 Normal Extension (L3) 5 Normal PT-OP-Q Treatments Start: 02/11/18 11:12 Freq: Status: Active Protocol: Document 06/15/18 14:39 [facility] (Rec: 06/15/18 16:44 [facility] [id number]) Therapeutic Exercises Supine Exercises figure 4 stretch Supine Exercise Name AROM Reps/Minutes 10 Comments foot lift Prone Exercises hip ext Prone Exercise Name alt Side bilateral Reps/Minutes 10 Standing Exercises gait at wall Standing Exercise Name L post depression & R ant elevation Reps/Minutes 4 Comments w/faciliation Therapeutic Activity Therapeutic Activity cleaning Name edu for positioning for cleaning tub Comments edu on lifting & picking up when cleaning Manual Therapy Treatment Joint Mobilizations innominate Joint innominate R Direction ext FM Manual Techniques quad Type c/r quad stretch PT-OP-R Modalities Start: 02/11/18 11:12 Freq: Status: Active Protocol: Document 06/15/18 14:39 [facility] (Rec: 06/15/18 16:44 [facility] [id number]) Electric Stimulation Electric Stimulation Interferential Current (IFC) Body Location IFC with MHP to the lower back and sacral region Duration (Minutes) 15 Patient Position Hooklying Combined With Heat/Cold Hot Pack PT-OP-T Assessment and Plan Start: 02/11/18 11:12 Freq: Status: Active Protocol: Document 06/15/18 14:39 [facility] (Rec: 06/15/18 16:44 [facility] [id number]) Physical Therapy Assessment Goals activity Short Term Goal (STG) Pt will demonstrate good lifting mechanics. STG Duration 05/13/18 Roll Cutting Operator Goal (LTG) Pt will be able to return to normal daily activities without inc pain or fatigue. LTG Duration 08/13/18-improved activity tolerance strength Short Term Goal (STG) Indep with HEP STG Duration 03/15/18-achieved advancing as needed Roll Cutting Operator Goal (LTG) Pt will have 5/5 LE strength & 4/5 LPM, EFT & VCT to demonstrate improved core stability to allow pt to do normal daily activities without pain. LTG Duration 08/13/18-improving Assessment Summary Assessment Pt is improving with overall strength, but has still dec core strength and impaired innominate mobility of R side. She is reporting feeling better with treatment, but still has pain with inc activity Physical Therapy Plan Frequency and Duration Frequency of Treatment 1x/Week Duration of Treatment 2 months Plan of Care Start Date 06/15/18 Plan of Care End Date 08/15/18 Therapeutic Interventions Therapeutic Interventions Aquatic Therapy Balance Training Gait Training Home Exercise Program Joint Mobilizations Manual Therapy Neuromuscular Re-education Patient/Caregiver Education Self-Care/Home Management Soft Tissue Mobilization Taping Therapeutic Activities Therapeutic Exercises Modalities Cold Pack/Ice Massage Electric Stimulation Hot Packs Infrared Therapy Iontophoresis Traction- Mechanical Ultrasound Next Visit Focus/Plan Next Note Type Treatment Note Next Visit Plan PNF & core faciliation especially as associated with RLE
--- NOTE | 2018-06-15 16:44 | PT.OPPOC ---
Current Diagnoses Low back pain (06/15/18) Provider Visit Care Team Role Provider Type Ezio Stiles MD Attending Provider Physician Family Provider Primary Care Provider Specialty: Family Practice Address: [address] [place] [address], [id number] Email: [email or web address] Plan Of Care PT-OP-T Assessment and Plan Start: 02/11/18 11:12 Freq: Status: Active Protocol: Document 06/15/18 14:39 [facility] (Rec: 06/15/18 16:44 [facility] [id number]) Physical Therapy Assessment Goals activity Short Term Goal (STG) Pt will demonstrate good lifting mechanics. STG Duration 05/13/18 Rn Anesthesiology Goal (LTG) Pt will be able to return to normal daily activities without inc pain or fatigue. LTG Duration 08/13/18-improved activity tolerance strength Short Term Goal (STG) Indep with HEP STG Duration 03/15/18-achieved advancing as needed Rn Anesthesiology Goal (LTG) Pt will have 5/5 LE strength & 4/5 LPM, EFT & VCT to demonstrate improved core stability to allow pt to do normal daily activities without pain. LTG Duration 08/13/18-improving Assessment Summary Assessment Pt is improving with overall strength, but has still dec core strength and impaired innominate mobility of R side. She is reporting feeling better with treatment, but still has pain with inc activity Physical Therapy Plan Frequency and Duration Frequency of Treatment 1x/Week Duration of Treatment 2 months Plan of Care Start Date 06/15/18 Plan of Care End Date 08/15/18 Therapeutic Interventions Therapeutic Interventions Aquatic Therapy Balance Training Gait Training Home Exercise Program Joint Mobilizations Manual Therapy Neuromuscular Re-education Patient/Caregiver Education Self-Care/Home Management Soft Tissue Mobilization Taping Therapeutic Activities Therapeutic Exercises Modalities Cold Pack/Ice Massage Electric Stimulation Hot Packs Infrared Therapy Iontophoresis Traction- Mechanical Ultrasound Next Visit Focus/Plan Next Note Type Treatment Note Next Visit Plan PNF & core faciliation especially as associated with RLE Plan of Care Dates Plan of Care Start Date 06/15/18 Plan of Care End Date 08/15/18 Please Sign and Return: I have reviewed this Plan of Care and certify that the skilled therapy services above are required to meet the patient?s needs. Physician Signature Date Printed Name and Credentials Clinical Instructor Signature Printed Name and Credentials
--- NOTE | 2018-08-02 18:27 | PT.OTN ---
Current Diagnoses Low back pain (08/02/18) Physical Therapy Treatment Note PT-OP-A Visit Information Start: 02/11/18 11:12 Freq: Status: Active Protocol: Document 08/02/18 12:02 [facility] (Rec: 08/02/18 18:25 [facility] [id number]) Out-Patient Physical Therapy Visit Information Visit Information Visit Type Treatment Note Visit Start Time 11:25 Visit Stop Time 12:18 Total Visit Minutes 53 Visit Number 2/10 Number of COMMUNITY REPRESENTATIVE Visits 0 PT-OP-B Current Condition Start: 02/11/18 11:12 Freq: Status: Active Protocol: Document 02/12/18 09:46 [facility] (Rec: 02/12/18 10:47 [facility] [id number]) Current Condition History of Current Condition Onset Date a few months ago Current Complaints LBP History of Current Condition Pt reports she fell when chasing a runaway suitcase going down hill that pulled her hard and she landed flat on her back. This was a few months ago and she has had back pain since this and it is not getting better with her trying to do stretches. Reports when she gets up from sitting, it takes her a while to get fully straight. Pt reports being distracted during daily activity d/t pain and gets fatigued quicker. has been doing vacuuming and some of the harder household tasks. Pt reports back pain years ago but went away and was never a lasting thing. Reports she was in hospital for back pain one time because she turned to close the car door and had inc pain. Pt reports this was probably about 15 years or more. Pt has hx of R bunionectomy about 30 years ago. Pt reports hx of D&C about 33 years ago. Pt reports she hit her toe in the past week on L but it is starting to feel better. 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 PT-OP-C Subjective Start: 02/11/18 11:12 Freq: Status: Active Protocol: Document 08/02/18 12:02 [facility] (Rec: 08/02/18 18:25 [facility] [id number]) OP-PT Subjective Patient Comments Patient Comments pt reports compliance with exercises and feels like stretches are improving him motions but back still hurts. PT-OP-F Manual Assessment Start: 02/11/18 11:12 Freq: Status: Active Protocol: Document 02/12/18 09:46 [facility] (Rec: 02/12/18 10:47 [facility] [id number]) Manual Assessments Soft Tissue Assessment Soft Tissue Mobility Assessment TIghtness in QL, ES, piriformis & glutes R>L Joint Mobility Assessment Joint Mobility Assessment R iliac crest elevated and ant ; even greater trochanter height PT-OP-G Mobility & Gait Start: 02/11/18 11:12 Freq: Status: Active Protocol: Document 02/12/18 09:46 [facility] (Rec: 02/12/18 10:47 [facility] [id number]) OP Gait Assessment Comments Gait Comments Leg walker primarily; Rotation of R pelvis with RLE push off , fwd trunk lean PT-OP-J Posture/Palpation/Skin Start: 02/11/18 11:12 Freq: Status: Active Protocol: Document 04/16/18 12:13 [facility] (Rec: 04/16/18 13:04 [facility] [id number]) Posture Evaluation Tasneem Postural Classification System Vertebral Compression Test 2 Elbow Flexion Test 2 Lumbar Protective Mechanism Left AP 1 Lumbar Protective Mechanism Right AP 3 Lumbar Protective Mechanism Left PA 3 Lumbar Protective Mechanism Right PA 3 PT-OP-K Range of Motion Start: 02/11/18 11:12 Freq: Status: Active Protocol: Document 04/16/18 12:13 [facility] (Rec: 04/16/18 13:04 [facility] [id number]) Lumbar Spine Range of Motion Lumbar Spine Active Degrees Flexion 53 Extension 17 Rotation Left 30 Rotation Right 30 Lateral Flexion Left 26 Lateral Flexion Right 24 Comments PULL B w/SB R PT-OP-L Special Tests Start: 02/11/18 11:12 Freq: Status: Active Protocol: Document 02/12/18 09:46 [facility] (Rec: 02/12/18 10:47 [facility] [id number]) Special Tests Lumbar Spine Special Tests Slump Test Results neg Straight Leg Raise Test Results neg b PT-OP-M Strength Start: 02/11/18 11:12 Freq: Status: Active Protocol: Document 06/15/18 14:39 [facility] (Rec: 06/15/18 16:44 [facility] [id number]) Hip Strength Hip Manual Muscle Testing Right Flexion (L2) 4 Good Extension (S1) 4- Good- External Rotation 4+ Good+ Internal Rotation 5 Normal Left Flexion (L2) 4+ Good+ Extension (S1) 4- Good- Abduction 4+ Good+ External Rotation 5 Normal Internal Rotation 5 Normal Knee Strength Knee Manual Muscle Testing Left Flexion (S2) 5 Normal Extension (L3) 5 Normal Right Flexion (S2) 5 Normal Extension (L3) 5 Normal PT-OP-Q Treatments Start: 02/11/18 11:12 Freq: Status: Active Protocol: Document 08/02/18 12:02 [facility] (Rec: 08/02/18 12:13 [facility] [id number]) Therapeutic Exercises Supine Exercises 1 Supine Exercise Name dying bugs Side bilateral Reps/Minutes 12 Comments bent knee bridge Supine Exercise Name w/alt march Side bilateral Reps/Minutes 6 marching Supine Exercise Name scissor exercise Side bilateral Reps/Minutes 15 Prone Exercises hip ER Prone Exercise Name ER Side bilateral Reps/Minutes 8 Manual Therapy Treatment Soft Tissue Mobilization piriformis Body Location piriformis L Mobilization Type Rolling Intensity/Depth Moderate Comments w/c/r in supine QL Body Location B QL Mobilization Type Rolling Intensity/Depth Moderate Body Position Prone Joint Mobilizations sacrum Joint sacrum Direction caudal & PA FM innominate Joint innominate R Direction ER FM hip Joint hip Direction ER R hip on axis FM Comments w/neuro re edu isometric hold after Self-Care/Home Management Treatment Activities Self-Care/Home Management Activities verbal review of HEP & edu on towel use for car seat PT-OP-R Modalities Start: 02/11/18 11:12 Freq: Status: Active Protocol: Document 08/02/18 12:02 [facility] (Rec: 08/02/18 18:25 [facility] [id number]) Electric Stimulation Electric Stimulation Interferential Current (IFC) Body Location IFC with MHP to the lower back and sacral region Duration (Minutes) 15 Patient Position Hooklying Combined With Heat/Cold Hot Pack PT-OP-T Assessment and Plan Start: 02/11/18 11:12 Freq: Status: Active Protocol: Document 08/02/18 12:02 [facility] (Rec: 08/02/18 18:25 [facility] [id number]) Physical Therapy Assessment Goals activity Short Term Goal (STG) Pt will demonstrate good lifting mechanics. STG Duration 05/13/18 Branch Specialist Goal (LTG) Pt will be able to return to normal daily activities without inc pain or fatigue. LTG Duration 08/13/18-improved activity tolerance strength Short Term Goal (STG) Indep with HEP STG Duration 03/15/18-achieved advancing as needed Nursing Home Goal (LTG) Pt will have 5/5 LE strength & 4/5 LPM, EFT & VCT to demonstrate improved core stability to allow pt to do normal daily activities without pain. LTG Duration 08/13/18-improving Assessment Summary Assessment Pt had difficulty with core exercises. She is improving with hip mobility but still has dec overall stability with this motion. Further treatment to focus on stabiltiy. Physical Therapy Plan Frequency and Duration Frequency of Treatment 1x/Week Duration of Treatment 2 months Plan of Care Start Date 06/15/18 Plan of Care End Date 08/15/18 Therapeutic Interventions Therapeutic Interventions Aquatic Therapy Balance Training Gait Training Home Exercise Program Joint Mobilizations Manual Therapy Neuromuscular Re-education Patient/Caregiver Education Self-Care/Home Management Soft Tissue Mobilization Taping Therapeutic Activities Therapeutic Exercises Modalities Cold Pack/Ice Massage Electric Stimulation Hot Packs Infrared Therapy Iontophoresis Traction- Mechanical Ultrasound Next Visit Focus/Plan Next Note Type Progress Note Next Visit Plan PNF & core faciliation
--- NOTE | 2018-08-11 15:49 | PT.OTN ---
Current Diagnoses Low back pain (08/11/18) Physical Therapy Treatment Note PT-OP-A Visit Information Start: 02/11/18 11:12 Freq: Status: Active Protocol: Document 08/11/18 13:47 [facility] (Rec: 08/11/18 15:49 [facility] [id number]) Out-Patient Physical Therapy Visit Information Visit Information Visit Type Progress Note Visit Start Time 13:48 Visit Stop Time 14:28 Total Visit Minutes 40 Visit Number / Number of COMMERCIAL LINES MANAGER Visits 0 PT-OP-B Current Condition Start: 02/11/18 11:12 Freq: Status: Active Protocol: Document 02/12/18 09:46 [facility] (Rec: 02/12/18 10:47 [facility] [id number]) Current Condition History of Current Condition Onset Date a few months ago Current Complaints LBP History of Current Condition Pt reports she fell when chasing a runaway suitcase going down hill that pulled her hard and she landed flat on her back. This was a few months ago and she has had back pain since this and it is not getting better with her trying to do stretches. Reports when she gets up from sitting, it takes her a while to get fully straight. Pt reports being distracted during daily activity d/t pain and gets fatigued quicker. has been doing vacuuming and some of the harder household tasks. Pt reports back pain years ago but went away and was never a lasting thing. Reports she was in hospital for back pain one time because she turned to close the car door and had inc pain. Pt reports this was probably about 15 years or more. Pt has hx of R bunionectomy about 30 years ago. Pt reports hx of D&C about 33 years ago. Pt reports she hit her toe in the past week on L but it is starting to feel better. 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 PT-OP-C Subjective Start: 02/11/18 11:12 Freq: Status: Active Protocol: Document 08/11/18 13:47 [facility] (Rec: 08/11/18 15:49 [facility] [id number]) OP-PT Subjective Patient Comments Patient Comments Pt reports she feels improvement and has been able to start walking & picking up seaglass Patient Reported Progress Improving PT-OP-F Manual Assessment Start: 02/11/18 11:12 Freq: Status: Active Protocol: Document 02/12/18 09:46 [facility] (Rec: 02/12/18 10:47 [facility] [id number]) Manual Assessments Soft Tissue Assessment Soft Tissue Mobility Assessment TIghtness in QL, ES, piriformis & glutes R>L Joint Mobility Assessment Joint Mobility Assessment R iliac crest elevated and ant ; even greater trochanter height PT-OP-G Mobility & Gait Start: 02/11/18 11:12 Freq: Status: Active Protocol: Document 02/12/18 09:46 [facility] (Rec: 02/12/18 10:47 [facility] [id number]) OP Gait Assessment Comments Gait Comments Leg walker primarily; Rotation of R pelvis with RLE push off , fwd trunk lean PT-OP-J Posture/Palpation/Skin Start: 02/11/18 11:12 Freq: Status: Active Protocol: Document 04/16/18 12:13 [facility] (Rec: 04/16/18 13:04 [facility] [id number]) Posture Evaluation Tasneem Postural Classification System Vertebral Compression Test 2 Elbow Flexion Test 2 Lumbar Protective Mechanism Left AP 1 Lumbar Protective Mechanism Right AP 3 Lumbar Protective Mechanism Left PA 3 Lumbar Protective Mechanism Right PA 3 PT-OP-K Range of Motion Start: 02/11/18 11:12 Freq: Status: Active Protocol: Document 04/16/18 12:13 [facility] (Rec: 04/16/18 13:04 [facility] [id number]) Lumbar Spine Range of Motion Lumbar Spine Active Degrees Flexion 53 Extension 17 Rotation Left 30 Rotation Right 30 Lateral Flexion Left 26 Lateral Flexion Right 24 Comments PULL B w/SB R PT-OP-L Special Tests Start: 02/11/18 11:12 Freq: Status: Active Protocol: Document 02/12/18 09:46 [facility] (Rec: 02/12/18 10:47 [facility] [id number]) Special Tests Lumbar Spine Special Tests Slump Test Results neg Straight Leg Raise Test Results neg b PT-OP-M Strength Start: 02/11/18 11:12 Freq: Status: Active Protocol: Document 08/11/18 13:47 [facility] (Rec: 08/11/18 15:49 [facility] [id number]) Hip Strength Hip Manual Muscle Testing Right Flexion (L2) 5 Normal Extension (S1) 4 Good Abduction 5 Normal External Rotation 5 Normal Internal Rotation 5 Normal Left Flexion (L2) 5 Normal Extension (S1) 4 Good Abduction 4+ Good+ External Rotation 5 Normal Internal Rotation 5 Normal PT-OP-Q Treatments Start: 02/11/18 11:12 Freq: Status: Active Protocol: Document 08/11/18 13:47 [facility] (Rec: 08/11/18 15:49 [facility] [id number]) Therapeutic Exercises Supine Exercises piriformis stretch Supine Exercise Name piriformis stretch & QL stretch Side right Reps/Minutes 30 sec ea Sitting Exercises fwd bend Sitting Exercise Name segmental stretch Standing Exercises squats Standing Exercise Name side step squat Side bilateral Equipment Used L2 Reps/Minutes [address] Manual Therapy Treatment Soft Tissue Mobilization ES Body Location ES Mobilization Type Rolling Intensity/Depth Moderate Body Position Sitting Comments w/fwd bend 1 Body Location psoas L FM Self-Care/Home Management Treatment Education Patient Education Body Mechanics Home Exercise Program Posture Other Education picking up seaglass mechanics, review verbally exercises & postural edu PT-OP-R Modalities Start: 02/11/18 11:12 Freq: Status: Active Protocol: Document 08/02/18 12:02 [facility] (Rec: 08/02/18 18:25 [facility] [id number]) Electric Stimulation Electric Stimulation Interferential Current (IFC) Body Location IFC with MHP to the lower back and sacral region Duration (Minutes) 15 Patient Position Hooklying Combined With Heat/Cold Hot Pack PT-OP-T Assessment and Plan Start: 02/11/18 11:12 Freq: Status: Active Protocol: Document 08/11/18 13:47 [facility] (Rec: 08/11/18 15:49 [facility] [id number]) Physical Therapy Assessment Goals activity Short Term Goal (STG) Pt will demonstrate good lifting mechanics. 08/11-improved with minor cueing required STG Duration 05/13/18 [facility] Goal (LTG) Pt will be able to return to normal daily activities without inc pain or fatigue. 08/11-pt reports less pain but still painful with certain movements LTG Duration 10/11/18 strength Short Term Goal (STG) Indep with HEP STG Duration 03/15/18-achieved advancing as needed Convention Worker Goal (LTG) Pt will have 5/5 LE strength & 4/5 LPM, EFT & VCT to demonstrate improved core stability to allow pt to do normal daily activities without pain. 08/11-EFT-4/5 VCT-3/5; LPM AP R 0/5; L PA 0/5, L AP & RPA 3/5 LTG Duration 10/13/18-improving Assessment Summary Assessment Pt cont to have dec core and require min cueing for postural stability. Able to achieved 5/5 on VCT & EFT after postural edu. She is having improvement in functional performance and has started walking & picking up seaglass. She required cueing for lifting mechanics & had dec pain with bending after treatment today. Physical Therapy Plan Frequency and Duration Frequency of Treatment 1x/Week Duration of Treatment 2 months Plan of Care Start Date 08/11/18 Plan of Care End Date 10/11/18 Therapeutic Interventions Therapeutic Interventions Aquatic Therapy Balance Training Gait Training Home Exercise Program Joint Mobilizations Manual Therapy Neuromuscular Re-education Patient/Caregiver Education Self-Care/Home Management Soft Tissue Mobilization Taping Therapeutic Activities Therapeutic Exercises Modalities Cold Pack/Ice Massage Electric Stimulation Hot Packs Infrared Therapy Iontophoresis Traction- Mechanical Ultrasound Next Visit Focus/Plan Next Note Type Treatment Note Next Visit Plan work on standing core
--- NOTE | 2018-08-11 15:49 | PT.OPPOC ---
Current Diagnoses Low back pain (08/11/18) Provider Visit Care Team Role Provider Type Ezio Stiles MD Attending Provider Physician Family Provider Primary Care Provider Specialty: Family Practice Address: [address] [place] [address], [id number] Email: [email or web address] Plan Of Care PT-OP-T Assessment and Plan Start: 02/11/18 11:12 Freq: Status: Active Protocol: Document 08/11/18 13:47 [facility] (Rec: 08/11/18 15:49 [facility] [id number]) Physical Therapy Assessment Goals activity Short Term Goal (STG) Pt will demonstrate good lifting mechanics. 08/11-improved with minor cueing required STG Duration 05/13/18 Polymer Materials Consultant Goal (LTG) Pt will be able to return to normal daily activities without inc pain or fatigue. 08/11-pt reports less pain but still painful with certain movements LTG Duration 10/11/18 strength Short Term Goal (STG) Indep with HEP STG Duration 03/15/18-achieved advancing as needed Polymer Materials Consultant Goal (LTG) Pt will have 5/5 LE strength & 4/5 LPM, EFT & VCT to demonstrate improved core stability to allow pt to do normal daily activities without pain. 08/11-EFT-4/5 VCT-3/5; LPM AP R 0/5; L PA 0/5, L AP & RPA 3/5 LTG Duration 10/13/18-improving Assessment Summary Assessment Pt cont to have dec core and require min cueing for postural stability. Able to achieved 5/5 on VCT & EFT after postural edu. She is having improvement in functional performance and has started walking & picking up seaglass. She required cueing for lifting mechanics & had dec pain with bending after treatment today. Physical Therapy Plan Frequency and Duration Frequency of Treatment 1x/Week Duration of Treatment 2 months Plan of Care Start Date 08/11/18 Plan of Care End Date 10/11/18 Therapeutic Interventions Therapeutic Interventions Aquatic Therapy Balance Training Gait Training Home Exercise Program Joint Mobilizations Manual Therapy Neuromuscular Re-education Patient/Caregiver Education Self-Care/Home Management Soft Tissue Mobilization Taping Therapeutic Activities Therapeutic Exercises Modalities Cold Pack/Ice Massage Electric Stimulation Hot Packs Infrared Therapy Iontophoresis Traction- Mechanical Ultrasound Next Visit Focus/Plan Next Note Type Treatment Note Next Visit Plan work on standing core Plan of Care Dates Plan of Care Start Date 08/11/18 Plan of Care End Date 10/11/18 Please Sign and Return: I have reviewed this Plan of Care and certify that the skilled therapy services above are required to meet the patient?s needs. Physician Signature Date Printed Name and Credentials Clinical Instructor Signature Printed Name and Credentials
--- NOTE | 2018-08-18 11:18 | PT.OTN ---
Current Diagnoses Low back pain (08/18/18) Physical Therapy Treatment Note PT-OP-A Visit Information Start: 02/11/18 11:12 Freq: Status: Active Protocol: Document 08/18/18 10:33 [facility] (Rec: 08/18/18 11:18 [facility] [id number]) Out-Patient Physical Therapy Visit Information Visit Information Visit Type Treatment Note Visit Start Time 10:35 Visit Stop Time 11:15 Total Visit Minutes 40 Visit Number 2/10 Number of PODIATRY PROFESSOR Visits 0 PT-OP-B Current Condition Start: 02/11/18 11:12 Freq: Status: Active Protocol: Document 02/12/18 09:46 [facility] (Rec: 02/12/18 10:47 [facility] [id number]) Current Condition History of Current Condition Onset Date a few months ago Current Complaints LBP History of Current Condition Pt reports she fell when chasing a runaway suitcase going down hill that pulled her hard and she landed flat on her back. This was a few months ago and she has had back pain since this and it is not getting better with her trying to do stretches. Reports when she gets up from sitting, it takes her a while to get fully straight. Pt reports being distracted during daily activity d/t pain and gets fatigued quicker. has been doing vacuuming and some of the harder household tasks. Pt reports back pain years ago but went away and was never a lasting thing. Reports she was in hospital for back pain one time because she turned to close the car door and had inc pain. Pt reports this was probably about 15 years or more. Pt has hx of R bunionectomy about 30 years ago. Pt reports hx of D&C about 33 years ago. Pt reports she hit her toe in the past week on L but it is starting to feel better. 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 PT-OP-C Subjective Start: 02/11/18 11:12 Freq: Status: Active Protocol: Document 08/18/18 10:33 [facility] (Rec: 08/18/18 11:18 [facility] [id number]) OP-PT Subjective Patient Comments Patient Comments Pt reports compliance w HEP Patient Reported Progress Improving PT-OP-F Manual Assessment Start: 02/11/18 11:12 Freq: Status: Active Protocol: Document 02/12/18 09:46 [facility] (Rec: 02/12/18 10:47 [facility] [id number]) Manual Assessments Soft Tissue Assessment Soft Tissue Mobility Assessment TIghtness in QL, ES, piriformis & glutes R>L Joint Mobility Assessment Joint Mobility Assessment R iliac crest elevated and ant ; even greater trochanter height PT-OP-G Mobility & Gait Start: 02/11/18 11:12 Freq: Status: Active Protocol: Document 02/12/18 09:46 [facility] (Rec: 02/12/18 10:47 [facility] [id number]) OP Gait Assessment Comments Gait Comments Leg walker primarily; Rotation of R pelvis with RLE push off , fwd trunk lean PT-OP-J Posture/Palpation/Skin Start: 02/11/18 11:12 Freq: Status: Active Protocol: Document 04/16/18 12:13 [facility] (Rec: 04/16/18 13:04 [facility] [id number]) Posture Evaluation Tasneem Postural Classification System Vertebral Compression Test 2 Elbow Flexion Test 2 Lumbar Protective Mechanism Left AP 1 Lumbar Protective Mechanism Right AP 3 Lumbar Protective Mechanism Left PA 3 Lumbar Protective Mechanism Right PA 3 PT-OP-K Range of Motion Start: 02/11/18 11:12 Freq: Status: Active Protocol: Document 04/16/18 12:13 [facility] (Rec: 04/16/18 13:04 [facility] [id number]) Lumbar Spine Range of Motion Lumbar Spine Active Degrees Flexion 53 Extension 17 Rotation Left 30 Rotation Right 30 Lateral Flexion Left 26 Lateral Flexion Right 24 Comments PULL B w/SB R PT-OP-L Special Tests Start: 02/11/18 11:12 Freq: Status: Active Protocol: Document 02/12/18 09:46 [facility] (Rec: 02/12/18 10:47 [facility] [id number]) Special Tests Lumbar Spine Special Tests Slump Test Results neg Straight Leg Raise Test Results neg b PT-OP-M Strength Start: 02/11/18 11:12 Freq: Status: Active Protocol: Document 08/11/18 13:47 [facility] (Rec: 08/11/18 15:49 [facility] [id number]) Hip Strength Hip Manual Muscle Testing Right Flexion (L2) 5 Normal Extension (S1) 4 Good Abduction 5 Normal External Rotation 5 Normal Internal Rotation 5 Normal Left Flexion (L2) 5 Normal Extension (S1) 4 Good Abduction 4+ Good+ External Rotation 5 Normal Internal Rotation 5 Normal PT-OP-Q Treatments Start: 02/11/18 11:12 Freq: Status: Active Protocol: Document 08/18/18 10:33 [facility] (Rec: 08/18/18 11:18 [facility] [id number]) Gym Equipment Sport Cord blue Exercise Details fwd, back side walking B Reps/Duration 10 ea Therapeutic Activity Therapeutic Activity bending Name picking up small objects Manual Therapy Treatment Soft Tissue Mobilization ES Body Location ES Mobilization Type Myofascial Release Rolling Intensity/Depth Moderate Body Position Sitting Comments w/fwd bend 1 Body Location psoas& iliacus L FM Joint Mobilizations innominate Joint innominate L Direction flex FM hip Joint hip Direction L inf glide FM PT-OP-R Modalities Start: 02/11/18 11:12 Freq: Status: Active Protocol: Document 08/02/18 12:02 [facility] (Rec: 08/02/18 18:25 [facility] [id number]) Electric Stimulation Electric Stimulation Interferential Current (IFC) Body Location IFC with MHP to the lower back and sacral region Duration (Minutes) 15 Patient Position Hooklying Combined With Heat/Cold Hot Pack PT-OP-T Assessment and Plan Start: 02/11/18 11:12 Freq: Status: Active Protocol: Document 08/18/18 10:33 [facility] (Rec: 08/18/18 11:18 [facility] [id number]) Physical Therapy Assessment Goals activity Short Term Goal (STG) Pt will demonstrate good lifting mechanics. 08/11-improved with minor cueing required STG Duration 05/13/18 Van Driver Goal (LTG) Pt will be able to return to normal daily activities without inc pain or fatigue. 08/11-pt reports less pain but still painful with certain movements LTG Duration 10/11/18 strength Short Term Goal (STG) Indep with HEP STG Duration 03/15/18-achieved advancing as needed Van Driver Goal (LTG) Pt will have 5/5 LE strength & 4/5 LPM, EFT & VCT to demonstrate improved core stability to allow pt to do normal daily activities without pain. 08/11-EFT-4/5 VCT-3/5; LPM AP R 0/5; L PA 0/5, L AP & RPA 3/5 LTG Duration 10/13/18-improving Assessment Summary Assessment Pt did well with maintianing neutral core for resisted walking. She is improving with lifting mechanics and had dc pain with cueing. Improved flex mobility w/STM Physical Therapy Plan Frequency and Duration Frequency of Treatment 1x/Week Duration of Treatment 2 months Plan of Care Start Date 08/11/18 Plan of Care End Date 10/11/18 Next Visit Focus/Plan Next Note Type Treatment Note Next Visit Plan try step ups with resistance
--- NOTE | 2018-08-24 15:51 | PT.OTN ---
Current Diagnoses Low back pain (08/24/18) Physical Therapy Treatment Note PT-OP-A Visit Information Start: 02/11/18 11:12 Freq: Status: Active Protocol: Document 08/24/18 15:42 [facility] (Rec: 08/24/18 15:51 [email or web address]) Out-Patient Physical Therapy Visit Information Visit Information Visit Type Treatment Note Visit Start Time 13:45 Visit Stop Time 14:35 Total Visit Minutes 50 Visit Number 3/10 Number of PRINTING ENGINEER Visits 1 PT-OP-B Current Condition Start: 02/11/18 11:12 Freq: Status: Active Protocol: Document 02/12/18 09:46 [facility] (Rec: 02/12/18 10:47 [facility] [id number]) Current Condition History of Current Condition Onset Date a few months ago Current Complaints LBP History of Current Condition Pt reports she fell when chasing a runaway suitcase going down hill that pulled her hard and she landed flat on her back. This was a few months ago and she has had back pain since this and it is not getting better with her trying to do stretches. Reports when she gets up from sitting, it takes her a while to get fully straight. Pt reports being distracted during daily activity d/t pain and gets fatigued quicker. has been doing vacuuming and some of the harder household tasks. Pt reports back pain years ago but went away and was never a lasting thing. Reports she was in hospital for back pain one time because she turned to close the car door and had inc pain. Pt reports this was probably about 15 years or more. Pt has hx of R bunionectomy about 30 years ago. Pt reports hx of D&C about 33 years ago. Pt reports she hit her toe in the past week on L but it is starting to feel better. 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 PT-OP-C Subjective Start: 02/11/18 11:12 Freq: Status: Active Protocol: Document 08/24/18 15:42 [facility] (Rec: 08/24/18 15:51 [facility] [email or web address]) OP-PT Subjective Patient Comments Patient Comments Pt fairly consistent with HEP, had c/o R side abdominal cramping/pain over the weekend that limited her HEP performance. Better today though. Patient Reported Progress Improving PT-OP-F Manual Assessment Start: 02/11/18 11:12 Freq: Status: Active Protocol: Document 02/12/18 09:46 [facility] (Rec: 02/12/18 10:47 [facility] [id number]) Manual Assessments Soft Tissue Assessment Soft Tissue Mobility Assessment TIghtness in QL, ES, piriformis & glutes R>L Joint Mobility Assessment Joint Mobility Assessment R iliac crest elevated and ant ; even greater trochanter height PT-OP-G Mobility & Gait Start: 02/11/18 11:12 Freq: Status: Active Protocol: Document 02/12/18 09:46 [facility] (Rec: 02/12/18 10:47 [facility] [id number]) OP Gait Assessment Comments Gait Comments Leg walker primarily; Rotation of R pelvis with RLE push off , fwd trunk lean PT-OP-J Posture/Palpation/Skin Start: 02/11/18 11:12 Freq: Status: Active Protocol: Document 04/16/18 12:13 [facility] (Rec: 04/16/18 13:04 [facility] [id number]) Posture Evaluation Tasneem Postural Classification System Vertebral Compression Test 2 Elbow Flexion Test 2 Lumbar Protective Mechanism Left AP 1 Lumbar Protective Mechanism Right AP 3 Lumbar Protective Mechanism Left PA 3 Lumbar Protective Mechanism Right PA 3 PT-OP-K Range of Motion Start: 02/11/18 11:12 Freq: Status: Active Protocol: Document 04/16/18 12:13 [facility] (Rec: 04/16/18 13:04 [facility] [id number]) Lumbar Spine Range of Motion Lumbar Spine Active Degrees Flexion 53 Extension 17 Rotation Left 30 Rotation Right 30 Lateral Flexion Left 26 Lateral Flexion Right 24 Comments PULL B w/SB R PT-OP-L Special Tests Start: 02/11/18 11:12 Freq: Status: Active Protocol: Document 02/12/18 09:46 [facility] (Rec: 02/12/18 10:47 [facility] [id number]) Special Tests Lumbar Spine Special Tests Slump Test Results neg Straight Leg Raise Test Results neg b PT-OP-M Strength Start: 02/11/18 11:12 Freq: Status: Active Protocol: Document 08/11/18 13:47 [facility] (Rec: 08/11/18 15:49 [facility] [id number]) Hip Strength Hip Manual Muscle Testing Right Flexion (L2) 5 Normal Extension (S1) 4 Good Abduction 5 Normal External Rotation 5 Normal Internal Rotation 5 Normal Left Flexion (L2) 5 Normal Extension (S1) 4 Good Abduction 4+ Good+ External Rotation 5 Normal Internal Rotation 5 Normal PT-OP-Q Treatments Start: 02/11/18 11:12 Freq: Status: Active Protocol: Document 08/24/18 15:42 [facility] (Rec: 08/24/18 15:51 [email or web address]) Gym Equipment Sport Cord blue Exercise Details fwd, back side walking B Reps/Duration 10 ea Comments progress to step ups on 6 step, 6x each direction Therapeutic Exercises Supine Exercises 1 Supine Exercise Name dying bugs Side bilateral Reps/Minutes 12 Comments bent knee bridge Supine Exercise Name w/alt march Side bilateral Reps/Minutes 10 each piriformis stretch Supine Exercise Name piriformis stretch & QL stretch Side right Reps/Minutes 30 sec ea Manual Therapy Treatment Soft Tissue Mobilization ES Body Location ES Mobilization Type Myofascial Release Rolling Intensity/Depth Moderate Body Position Sitting Comments w/fwd bend 1 Body Location psoas& iliacus L FM QL Body Location B QL Mobilization Type Rolling Intensity/Depth Moderate Body Position Prone PT-OP-R Modalities Start: 02/11/18 11:12 Freq: Status: Active Protocol: Document 08/24/18 15:42 [facility] (Rec: 08/24/18 15:51 [email or web address]) Electric Stimulation Electric Stimulation Interferential Current (IFC) Body Location IFC with MHP to the lower back and sacral region Duration (Minutes) 15 Patient Position Hooklying Combined With Heat/Cold Hot Pack PT-OP-T Assessment and Plan Start: 02/11/18 11:12 Freq: Status: Active Protocol: Document 08/24/18 15:42 [facility] (Rec: 08/24/18 15:51 [email or web address]) Physical Therapy Assessment Assessment Summary Assessment Pt tolerated step up progression with resistance well, notes LE muscle fatigue but no pain. Improving ability to maintain neutral core with activity. Physical Therapy Plan Next Visit Focus/Plan Next Note Type Treatment Note Next Visit Plan Progress core stability with dynamic movement.
--- NOTE | 2018-09-29 18:55 | PT.OTN ---
Current Diagnoses Low back pain (09/29/18) Physical Therapy Treatment Note PT-OP-A Visit Information Start: 02/11/18 11:12 Freq: Status: Active Protocol: Document 09/29/18 18:49 [facility] (Rec: 09/30/18 13:20 [facility] [id number]) Out-Patient Physical Therapy Visit Information Visit Information Visit Type Treatment Note Visit Start Time 17:37 Visit Stop Time 18:22 Total Visit Minutes 50 Visit Number 3/10 Number of ORNAMENTAL METAL WORKER APPRENTICE Visits 0 PT-OP-B Current Condition Start: 02/11/18 11:12 Freq: Status: Active Protocol: Document 02/12/18 09:46 [facility] (Rec: 02/12/18 10:47 [facility] [id number]) Current Condition History of Current Condition Onset Date a few months ago Current Complaints LBP History of Current Condition Pt reports she fell when chasing a runaway suitcase going down hill that pulled her hard and she landed flat on her back. This was a few months ago and she has had back pain since this and it is not getting better with her trying to do stretches. Reports when she gets up from sitting, it takes her a while to get fully straight. Pt reports being distracted during daily activity d/t pain and gets fatigued quicker. has been doing vacuuming and some of the harder household tasks. Pt reports back pain years ago but went away and was never a lasting thing. Reports she was in hospital for back pain one time because she turned to close the car door and had inc pain. Pt reports this was probably about 15 years or more. Pt has hx of R bunionectomy about 30 years ago. Pt reports hx of D&C about 33 years ago. Pt reports she hit her toe in the past week on L but it is starting to feel better. 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 PT-OP-C Subjective Start: 02/11/18 11:12 Freq: Status: Active Protocol: Document 09/29/18 18:49 [facility] (Rec: 09/30/18 13:20 [facility] [id number]) OP-PT Subjective Patient Comments Patient Comments Pt reports transistions still the most painful. LB still gives her trouble sometimes. PT-OP-F Manual Assessment Start: 02/11/18 11:12 Freq: Status: Active Protocol: Document 02/12/18 09:46 [facility] (Rec: 02/12/18 10:47 [facility] [id number]) Manual Assessments Soft Tissue Assessment Soft Tissue Mobility Assessment TIghtness in QL, ES, piriformis & glutes R>L Joint Mobility Assessment Joint Mobility Assessment R iliac crest elevated and ant ; even greater trochanter height PT-OP-G Mobility & Gait Start: 02/11/18 11:12 Freq: Status: Active Protocol: Document 02/12/18 09:46 [facility] (Rec: 02/12/18 10:47 [facility] [id number]) OP Gait Assessment Comments Gait Comments Leg walker primarily; Rotation of R pelvis with RLE push off , fwd trunk lean PT-OP-J Posture/Palpation/Skin Start: 02/11/18 11:12 Freq: Status: Active Protocol: Document 04/16/18 12:13 [facility] (Rec: 04/16/18 13:04 [facility] [id number]) Posture Evaluation Tasneem Postural Classification System Vertebral Compression Test 2 Elbow Flexion Test 2 Lumbar Protective Mechanism Left AP 1 Lumbar Protective Mechanism Right AP 3 Lumbar Protective Mechanism Left PA 3 Lumbar Protective Mechanism Right PA 3 PT-OP-K Range of Motion Start: 02/11/18 11:12 Freq: Status: Active Protocol: Document 04/16/18 12:13 [facility] (Rec: 04/16/18 13:04 [facility] [id number]) Lumbar Spine Range of Motion Lumbar Spine Active Degrees Flexion 53 Extension 17 Rotation Left 30 Rotation Right 30 Lateral Flexion Left 26 Lateral Flexion Right 24 Comments PULL B w/SB R PT-OP-L Special Tests Start: 02/11/18 11:12 Freq: Status: Active Protocol: Document 02/12/18 09:46 [facility] (Rec: 02/12/18 10:47 [facility] [id number]) Special Tests Lumbar Spine Special Tests Slump Test Results neg Straight Leg Raise Test Results neg b PT-OP-M Strength Start: 02/11/18 11:12 Freq: Status: Active Protocol: Document 08/11/18 13:47 [facility] (Rec: 08/11/18 15:49 [facility] [id number]) Hip Strength Hip Manual Muscle Testing Right Flexion (L2) 5 Normal Extension (S1) 4 Good Abduction 5 Normal External Rotation 5 Normal Internal Rotation 5 Normal Left Flexion (L2) 5 Normal Extension (S1) 4 Good Abduction 4+ Good+ External Rotation 5 Normal Internal Rotation 5 Normal PT-OP-Q Treatments Start: 02/11/18 11:12 Freq: Status: Active Protocol: Document 09/29/18 18:49 [facility] (Rec: 09/30/18 13:20 [facility] [id number]) Therapeutic Activity Therapeutic Activity posture Comments standing and sittting posture progressed to weight shift and wt acceptance faciliation into both posiitons and progressed sitting wt shift & acceptance to sit to stand Manual Therapy Treatment Soft Tissue Mobilization ES Body Location ES & QL B Mobilization Type Myofascial Release Rolling Intensity/Depth Moderate Body Position Prone PT-OP-R Modalities Start: 02/11/18 11:12 Freq: Status: Active Protocol: Document 08/24/18 15:42 [facility] (Rec: 08/24/18 15:51 [facility] [id number]) Electric Stimulation Electric Stimulation Interferential Current (IFC) Body Location IFC with MHP to the lower back and sacral region Duration (Minutes) 15 Patient Position Hooklying Combined With Heat/Cold Hot Pack PT-OP-T Assessment and Plan Start: 02/11/18 11:12 Freq: Status: Active Protocol: Document 09/29/18 18:49 [facility] (Rec: 09/30/18 13:20 [facility] [id number]) Physical Therapy Assessment Goals activity Short Term Goal (STG) Pt will demonstrate good lifting mechanics. 08/11-improved with minor cueing required STG Duration 05/13/18 Supervisor Slate Splitting Goal (LTG) Pt will be able to return to normal daily activities without inc pain or fatigue. 08/11-pt reports less pain but still painful with certain movements LTG Duration 10/11/18 strength Short Term Goal (STG) Indep with HEP STG Duration 03/15/18-achieved advancing as needed Fpc Goal (LTG) Pt will have 5/5 LE strength & 4/5 LPM, EFT & VCT to demonstrate improved core stability to allow pt to do normal daily activities without pain. 08/11-EFT-4/5 VCT-3/5; LPM AP R 0/5; L PA 0/5, L AP & RPA 3/5 LTG Duration 10/13/18-improving Assessment Summary Assessment Pt has been unable to attend PT over the past month d/t being in [place] working on a camp. She has been unable to do exercises d/t sleeping arrangements were very cramped and [facility]. She was able to have dec LBP in sitting and standing and with sit to stand and wt shift fwd. She required significant faciliation to achieve improved mechanics. Physical Therapy Plan Frequency and Duration Frequency of Treatment 1x/Week Duration of Treatment 2 months Plan of Care Start Date 08/11/18 Plan of Care End Date 10/11/18 Next Visit Focus/Plan Next Note Type Progress Note Next Visit Plan dowel resisted walking & sport cords, cont to review posture and transition for sit to stand and gait
--- NOTE | 2018-10-06 11:57 | PT.OTN ---
Current Diagnoses Low back pain (10/06/18) Physical Therapy Treatment Note PT-OP-A Visit Information Start: 02/11/18 11:12 Freq: Status: Active Protocol: Document 10/06/18 10:28 [facility] (Rec: 10/06/18 11:56 [facility] [id number]) Out-Patient Physical Therapy Visit Information Visit Information Visit Type Progress Note Visit Start Time 10:33 Visit Stop Time 11:15 Total Visit Minutes 42 Visit Number 4/10 Number of DIESEL MAINTENANCE ELECTRICIAN Visits 0 PT-OP-B Current Condition Start: 02/11/18 11:12 Freq: Status: Active Protocol: Document 02/12/18 09:46 [facility] (Rec: 02/12/18 10:47 [facility] [id number]) Current Condition History of Current Condition Onset Date a few months ago Current Complaints LBP History of Current Condition Pt reports she fell when chasing a runaway suitcase going down hill that pulled her hard and she landed flat on her back. This was a few months ago and she has had back pain since this and it is not getting better with her trying to do stretches. Reports when she gets up from sitting, it takes her a while to get fully straight. Pt reports being distracted during daily activity d/t pain and gets fatigued quicker. has been doing vacuuming and some of the harder household tasks. Pt reports back pain years ago but went away and was never a lasting thing. Reports she was in hospital for back pain one time because she turned to close the car door and had inc pain. Pt reports this was probably about 15 years or more. Pt has hx of R bunionectomy about 30 years ago. Pt reports hx of D&C about 33 years ago. Pt reports she hit her toe in the past week on L but it is starting to feel better. 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 PT-OP-C Subjective Start: 02/11/18 11:12 Freq: Status: Active Protocol: Document 10/06/18 10:28 [facility] (Rec: 10/06/18 11:56 [facility] [id number]) OP-PT Subjective Patient Comments Patient Comments Pt reports she feels like she did well with posture but is limited with her ability to take the first few steps afer standing up. PT-OP-F Manual Assessment Start: 02/11/18 11:12 Freq: Status: Active Protocol: Document 02/12/18 09:46 [facility] (Rec: 02/12/18 10:47 [facility] [id number]) Manual Assessments Soft Tissue Assessment Soft Tissue Mobility Assessment TIghtness in QL, ES, piriformis & glutes R>L Joint Mobility Assessment Joint Mobility Assessment R iliac crest elevated and ant ; even greater trochanter height PT-OP-G Mobility & Gait Start: 02/11/18 11:12 Freq: Status: Active Protocol: Document 02/12/18 09:46 [facility] (Rec: 02/12/18 10:47 [facility] [id number]) OP Gait Assessment Comments Gait Comments Leg walker primarily; Rotation of R pelvis with RLE push off , fwd trunk lean PT-OP-J Posture/Palpation/Skin Start: 02/11/18 11:12 Freq: Status: Active Protocol: Document 10/06/18 10:28 [facility] (Rec: 10/06/18 11:56 [facility] [id number]) Posture Evaluation [facility] Postural Classification System [facility] Postural Classifications Posterior/Posterior Vertebral Compression Test 0 Elbow Flexion Test 5 Lumbar Protective Mechanism Left AP 5 Lumbar Protective Mechanism Right AP 1 Lumbar Protective Mechanism Left PA 1 Lumbar Protective Mechanism Right PA 1 PT-OP-K Range of Motion Start: 02/11/18 11:12 Freq: Status: Active Protocol: Document 04/16/18 12:13 [facility] (Rec: 04/16/18 13:04 [facility] [id number]) Lumbar Spine Range of Motion Lumbar Spine Active Degrees Flexion 53 Extension 17 Rotation Left 30 Rotation Right 30 Lateral Flexion Left 26 Lateral Flexion Right 24 Comments PULL B w/SB R PT-OP-L Special Tests Start: 02/11/18 11:12 Freq: Status: Active Protocol: Document 02/12/18 09:46 [facility] (Rec: 02/12/18 10:47 [facility] [id number]) Special Tests Lumbar Spine Special Tests Slump Test Results neg Straight Leg Raise Test Results neg b PT-OP-M Strength Start: 02/11/18 11:12 Freq: Status: Active Protocol: Document 10/06/18 10:28 [facility] (Rec: 10/06/18 11:56 [facility] [id number]) Hip Strength Hip Manual Muscle Testing Right Flexion (L2) 4 Good Extension (S1) 4+ Good+ Abduction 4+ Good+ External Rotation 5 Normal Internal Rotation 5 Normal Left Flexion (L2) 5 Normal Extension (S1) 4+ Good+ Abduction 5 Normal External Rotation 4+ Good+ Internal Rotation 5 Normal PT-OP-Q Treatments Start: 02/11/18 11:12 Freq: Status: Active Protocol: Document 10/06/18 10:28 [facility] (Rec: 10/06/18 11:56 [facility] [id number]) Therapeutic Exercises Supine Exercises 1 Supine Exercise Name abdominal series flex & diagnal Side bilateral Reps/Minutes 30 sec Sitting Exercises sit<>stand Sitting Exercise Name w/fcous on posture Reps/Minutes 10 Therapeutic Activity Therapeutic Activity posture Comments standing and sittting posture progressed to weight shift and wt acceptance faciliation into both posiitons and progressed sitting wt shift & acceptance to sit to stand with focus on maintaining posture bending Name picking up small objects PT-OP-R Modalities Start: 02/11/18 11:12 Freq: Status: Active Protocol: Document 08/24/18 15:42 [facility] (Rec: 08/24/18 15:51 [facility] [id number]) Electric Stimulation Electric Stimulation Interferential Current (IFC) Body Location IFC with MHP to the lower back and sacral region Duration (Minutes) 15 Patient Position Hooklying Combined With Heat/Cold Hot Pack PT-OP-T Assessment and Plan Start: 02/11/18 11:12 Freq: Status: Active Protocol: Document 10/06/18 10:28 [facility] (Rec: 10/06/18 11:56 [facility] [id number]) Physical Therapy Assessment Goals activity Short Term Goal (STG) Pt will demonstrate good lifting mechanics. 08/11-improved with minor cueing required STG Duration achieved Tissue Technologist Goal (LTG) Pt will be able to return to normal daily activities without inc pain or fatigue. 08/11-pt reports less pain but still painful with certain movements 10/06-pain only moving quickly or w/sit to stand sometimes LTG Duration 12/06/18 strength Short Term Goal (STG) Indep with HEP STG Duration 03/15/18-achieved advancing as needed Tissue Technologist Goal (LTG) Pt will have 5/5 LE strength & 4/5 LPM, EFT & VCT to demonstrate improved core stability to allow pt to do normal daily activities without pain. 08/11-EFT-4 VCT-05/04; LPM AP R 0/5; L PA 0/5, L AP & RPA 05/04 10/06-improved LTG Duration 12/06/18 Assessment Summary Assessment Pt is doing better with transitions but notices pain with tiwsiting with bending and requires cueing for appropriate movement patterns. She is cont to advance strength but is limited with her motor planning and some core stability strength. 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 She is progressing with posture & sit to stand mobility now, but has pain with first step after satnding. LIkely this is due ot posture and ability to wt shift and wt accept in standing. She would benefit from a continuence of PT in order to get her set with her HEP and transitional movements . Physical Therapy Plan Frequency and Duration Frequency of Treatment 1x/Week Duration of Treatment 6 weeks Plan of Care Start Date 10/06/18 Plan of Care End Date 11/17/18 Therapeutic Interventions Therapeutic Interventions Aquatic Therapy Balance Training Gait Training Home Exercise Program Joint Mobilizations Manual Therapy Neuromuscular Re-education Patient/Caregiver Education Self-Care/Home Management Soft Tissue Mobilization Taping Therapeutic Activities Therapeutic Exercises Modalities Cold Pack/Ice Massage Electric Stimulation Hot Packs Infrared Therapy Iontophoresis Traction- Mechanical Ultrasound Next Visit Focus/Plan Next Note Type Treatment Note Next Visit Plan dowel resisted walking & sport cords, cont to review posture and transition for sit to stand and gait
--- NOTE | 2018-10-06 11:57 | PT.OPPOC ---
Current Diagnoses Low back pain (10/06/18) Provider Visit Care Team Role Provider Type Ezio Stiles MD Attending Provider Physician Family Provider Primary Care Provider Specialty: Family Practice Address: [address] [place] [address], [id number] Email: [email or web address] Plan Of Care PT-OP-T Assessment and Plan Start: 02/11/18 11:12 Freq: Status: Active Protocol: Document 10/06/18 10:28 [facility] (Rec: 10/06/18 11:56 [facility] [id number]) Physical Therapy Assessment Goals activity Short Term Goal (STG) Pt will demonstrate good lifting mechanics. 08/11-improved with minor cueing required STG Duration achieved Fci Goal (LTG) Pt will be able to return to normal daily activities without inc pain or fatigue. 08/11-pt reports less pain but still painful with certain movements 10/06-pain only moving quickly or w/sit to stand sometimes LTG Duration 12/06/18 strength Short Term Goal (STG) Indep with HEP STG Duration 03/15/18-achieved advancing as needed Dealer Accounts Investigator Goal (LTG) Pt will have 5/5 LE strength & 4/5 LPM, EFT & VCT to demonstrate improved core stability to allow pt to do normal daily activities without pain. 08/11-EFT-4/5 VCT-3/5; LPM AP R 0/5; L PA 0/5, L AP & RPA 3/5 10/06-improved LTG Duration 12/06/18 Assessment Summary Assessment Pt is doing better with transitions but notices pain with tiwsiting with bending and requires cueing for appropriate movement patterns. She is cont to advance strength but is limited with her motor planning and some core stability strength. 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 She is progressing with posture & sit to stand mobility now, but has pain with first step after satnding. LIkely this is due ot posture and ability to wt shift and wt accept in standing. She would benefit from a continuence of PT in order to get her set with her HEP and transitional movements . Physical Therapy Plan Frequency and Duration Frequency of Treatment 1x/Week Duration of Treatment 6 weeks Plan of Care Start Date 10/06/18 Plan of Care End Date 11/17/18 Therapeutic Interventions Therapeutic Interventions Aquatic Therapy Balance Training Gait Training Home Exercise Program Joint Mobilizations Manual Therapy Neuromuscular Re-education Patient/Caregiver Education Self-Care/Home Management Soft Tissue Mobilization Taping Therapeutic Activities Therapeutic Exercises Modalities Cold Pack/Ice Massage Electric Stimulation Hot Packs Infrared Therapy Iontophoresis Traction- Mechanical Ultrasound Next Visit Focus/Plan Next Note Type Treatment Note Next Visit Plan dowel resisted walking & sport cords, cont to review posture and transition for sit to stand and gait Plan of Care Dates Plan of Care Start Date 10/06/18 Plan of Care End Date 11/17/18 Please Sign and Return: I have reviewed this Plan of Care and certify that the skilled therapy services above are required to meet the patient?s needs. Physician Signature Date Printed Name and Credentials Clinical Instructor Signature Printed Name and Credentials
--- NOTE | 2018-10-18 18:03 | PT.OTN ---
Current Diagnoses Low back pain (10/18/18) Physical Therapy Treatment Note PT-OP-A Visit Information Start: 02/11/18 11:12 Freq: Status: Active Protocol: Document 10/18/18 17:57 [facility] (Rec: 10/18/18 18:03 [facility] [id number]) Out-Patient Physical Therapy Visit Information Visit Information Visit Type Treatment Note Visit Note 23 visits 2018 Visit Start Time 14:10 Visit Stop Time 15:48 Total Visit Minutes 38 Visit Number 2/10 Number of WALL ATTENDANT Visits 0 PT-OP-B Current Condition Start: 02/11/18 11:12 Freq: Status: Active Protocol: Document 02/12/18 09:46 [facility] (Rec: 02/12/18 10:47 [facility] [id number]) Current Condition History of Current Condition Onset Date a few months ago Current Complaints LBP History of Current Condition Pt reports she fell when chasing a runaway suitcase going down hill that pulled her hard and she landed flat on her back. This was a few months ago and she has had back pain since this and it is not getting better with her trying to do stretches. Reports when she gets up from sitting, it takes her a while to get fully straight. Pt reports being distracted during daily activity d/t pain and gets fatigued quicker. has been doing vacuuming and some of the harder household tasks. Pt reports back pain years ago but went away and was never a lasting thing. Reports she was in hospital for back pain one time because she turned to close the car door and had inc pain. Pt reports this was probably about 15 years or more. Pt has hx of R bunionectomy about 30 years ago. Pt reports hx of D&C about 33 years ago. Pt reports she hit her toe in the past week on L but it is starting to feel better. 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 PT-OP-C Subjective Start: 02/11/18 11:12 Freq: Status: Active Protocol: Document 10/18/18 17:57 [facility] (Rec: 10/18/18 18:03 [facility] [id number]) OP-PT Subjective Patient Comments Patient Comments Pt feels better after last session. Transitions are better Patient Reported Progress Improving PT-OP-F Manual Assessment Start: 02/11/18 11:12 Freq: Status: Active Protocol: Document 02/12/18 09:46 [facility] (Rec: 02/12/18 10:47 [facility] [id number]) Manual Assessments Soft Tissue Assessment Soft Tissue Mobility Assessment TIghtness in QL, ES, piriformis & glutes R>L Joint Mobility Assessment Joint Mobility Assessment R iliac crest elevated and ant ; even greater trochanter height PT-OP-G Mobility & Gait Start: 02/11/18 11:12 Freq: Status: Active Protocol: Document 02/12/18 09:46 [facility] (Rec: 02/12/18 10:47 [facility] [id number]) OP Gait Assessment Comments Gait Comments Leg walker primarily; Rotation of R pelvis with RLE push off , fwd trunk lean PT-OP-J Posture/Palpation/Skin Start: 02/11/18 11:12 Freq: Status: Active Protocol: Document 10/06/18 10:28 [facility] (Rec: 10/06/18 11:56 [facility] [id number]) Posture Evaluation [facility] Postural Classification System [facility] Postural Classifications Posterior/Posterior Vertebral Compression Test 0 Elbow Flexion Test 5 Lumbar Protective Mechanism Left AP 5 Lumbar Protective Mechanism Right AP 1 Lumbar Protective Mechanism Left PA 1 Lumbar Protective Mechanism Right PA 1 PT-OP-K Range of Motion Start: 02/11/18 11:12 Freq: Status: Active Protocol: Document 04/16/18 12:13 [facility] (Rec: 04/16/18 13:04 [facility] [id number]) Lumbar Spine Range of Motion Lumbar Spine Active Degrees Flexion 53 Extension 17 Rotation Left 30 Rotation Right 30 Lateral Flexion Left 26 Lateral Flexion Right 24 Comments PULL B w/SB R PT-OP-L Special Tests Start: 02/11/18 11:12 Freq: Status: Active Protocol: Document 02/12/18 09:46 [facility] (Rec: 02/12/18 10:47 [facility] [id number]) Special Tests Lumbar Spine Special Tests Slump Test Results neg Straight Leg Raise Test Results neg b PT-OP-M Strength Start: 02/11/18 11:12 Freq: Status: Active Protocol: Document 10/06/18 10:28 [facility] (Rec: 10/06/18 11:56 [facility] [id number]) Hip Strength Hip Manual Muscle Testing Right Flexion (L2) 4 Good Extension (S1) 4+ Good+ Abduction 4+ Good+ External Rotation 5 Normal Internal Rotation 5 Normal Left Flexion (L2) 5 Normal Extension (S1) 4+ Good+ Abduction 5 Normal External Rotation 4+ Good+ Internal Rotation 5 Normal PT-OP-Q Treatments Start: 02/11/18 11:12 Freq: Status: Active Protocol: Document 10/18/18 17:57 [facility] (Rec: 10/18/18 18:03 [facility] [id number]) Gym Equipment Sport Cord green Exercise Details wt shifts fwd 10 ea then fwd & backwards walking x10 ea Therapeutic Activity Therapeutic Activity posture Comments standing and sittting posture progressed to weight shift and wt acceptance faciliation into both posiitons and progressed sitting wt shift & acceptance to sit to stand with focus on maintaining posture & working on first steps from sit to stand Manual Therapy Treatment Soft Tissue Mobilization ES Body Location ES & QL B Mobilization Type Myofascial Release Rolling Intensity/Depth Moderate Body Position Prone Joint Mobilizations sacrum Direction R UPA & caudal FM Body Position Prone PT-OP-R Modalities Start: 02/11/18 11:12 Freq: Status: Active Protocol: Document 08/24/18 15:42 [facility] (Rec: 08/24/18 15:51 [facility] [id number]) Electric Stimulation Electric Stimulation Interferential Current (IFC) Body Location IFC with MHP to the lower back and sacral region Duration (Minutes) 15 Patient Position Hooklying Combined With Heat/Cold Hot Pack PT-OP-T Assessment and Plan Start: 02/11/18 11:12 Freq: Status: Active Protocol: Document 10/18/18 17:57 [facility] (Rec: 10/18/18 18:03 [facility] [id number]) Physical Therapy Assessment Goals activity Short Term Goal (STG) Pt will demonstrate good lifting mechanics. 08/11-improved with minor cueing required STG Duration achieved Gymnastics Coach Goal (LTG) Pt will be able to return to normal daily activities without inc pain or fatigue. 08/11-pt reports less pain but still painful with certain movements 10/06-pain only moving quickly or w/sit to stand sometimes LTG Duration 12/06/18 strength Short Term Goal (STG) Indep with HEP STG Duration 03/15/18-achieved advancing as needed Fpc Goal (LTG) Pt will have 5/5 LE strength & 4/5 LPM, EFT & VCT to demonstrate improved core stability to allow pt to do normal daily activities without pain. 08/11-EFT-4/ VCT-05/04; LPM AP R 0/5; L PA 0/5, L AP & RPA 310/06-improved LTG Duration 12/06/18 Assessment Summary Assessment Pt had no pain with sit to stand and first coupel steps after wroking on wt shift and wt acceptance from sit to stand and into first steps. Initially, when she initiated gait, she had a R lean which improved with use of mirror Physical Therapy Plan Frequency and Duration Frequency of Treatment 1x/Week Duration of Treatment 6 weeks Plan of Care Start Date 10/06/18 Plan of Care End Date 11/17/18 Next Visit Focus/Plan Next Note Type Treatment Note Next Visit Plan dowel resisted walking & sport cord side stepping.
--- NOTE | 2018-10-27 17:35 | PT.OTN ---
Current Diagnoses Low back pain (10/27/18) Physical Therapy Treatment Note PT-OP-A Visit Information Start: 02/11/18 11:12 Freq: Status: Active Protocol: Document 10/27/18 16:45 [facility] (Rec: 10/28/18 09:32 [facility] [id number]) Out-Patient Physical Therapy Visit Information Visit Information Visit Type Treatment Note Visit Start Time 16:46 Visit Stop Time 17:31 Visit Number 3/10 Number of PHARMACIST IN CHARGE Visits 0 PT-OP-B Current Condition Start: 02/11/18 11:12 Freq: Status: Active Protocol: Document 02/12/18 09:46 [facility] (Rec: 02/12/18 10:47 [facility] [id number]) Current Condition History of Current Condition Onset Date a few months ago Current Complaints LBP History of Current Condition Pt reports she fell when chasing a runaway suitcase going down hill that pulled her hard and she landed flat on her back. This was a few months ago and she has had back pain since this and it is not getting better with her trying to do stretches. Reports when she gets up from sitting, it takes her a while to get fully straight. Pt reports being distracted during daily activity d/t pain and gets fatigued quicker. has been doing vacuuming and some of the harder household tasks. Pt reports back pain years ago but went away and was never a lasting thing. Reports she was in hospital for back pain one time because she turned to close the car door and had inc pain. Pt reports this was probably about 15 years or more. Pt has hx of R bunionectomy about 30 years ago. Pt reports hx of D&C about 33 years ago. Pt reports she hit her toe in the past week on L but it is starting to feel better. 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 PT-OP-C Subjective Start: 02/11/18 11:12 Freq: Status: Active Protocol: Document 10/27/18 16:45 [facility] (Rec: 10/28/18 09:32 [facility] [id number]) OP-PT Subjective Patient Comments Patient Comments Pt reports she is very sore starting tody and notes yesterday she was doing a lot of shopping where she was in/ out of the car. PT-OP-F Manual Assessment Start: 02/11/18 11:12 Freq: Status: Active Protocol: Document 02/12/18 09:46 [facility] (Rec: 02/12/18 10:47 [facility] [id number]) Manual Assessments Soft Tissue Assessment Soft Tissue Mobility Assessment TIghtness in QL, ES, piriformis & glutes R>L Joint Mobility Assessment Joint Mobility Assessment R iliac crest elevated and ant ; even greater trochanter height PT-OP-G Mobility & Gait Start: 02/11/18 11:12 Freq: Status: Active Protocol: Document 02/12/18 09:46 [facility] (Rec: 02/12/18 10:47 [facility] [id number]) OP Gait Assessment Comments Gait Comments Leg walker primarily; Rotation of R pelvis with RLE push off , fwd trunk lean PT-OP-J Posture/Palpation/Skin Start: 02/11/18 11:12 Freq: Status: Active Protocol: Document 10/06/18 10:28 [facility] (Rec: 10/06/18 11:56 [facility] [id number]) Posture Evaluation Tasneem Postural Classification System Tasneem Postural Classifications Posterior/Posterior Vertebral Compression Test 0 Elbow Flexion Test 5 Lumbar Protective Mechanism Left AP 5 Lumbar Protective Mechanism Right AP 1 Lumbar Protective Mechanism Left PA 1 Lumbar Protective Mechanism Right PA 1 PT-OP-K Range of Motion Start: 02/11/18 11:12 Freq: Status: Active Protocol: Document 04/16/18 12:13 [facility] (Rec: 04/16/18 13:04 [facility] [id number]) Lumbar Spine Range of Motion Lumbar Spine Active Degrees Flexion 53 Extension 17 Rotation Left 30 Rotation Right 30 Lateral Flexion Left 26 Lateral Flexion Right 24 Comments PULL B w/SB R PT-OP-L Special Tests Start: 02/11/18 11:12 Freq: Status: Active Protocol: Document 02/12/18 09:46 [facility] (Rec: 02/12/18 10:47 [facility] [id number]) Special Tests Lumbar Spine Special Tests Slump Test Results neg Straight Leg Raise Test Results neg b PT-OP-M Strength Start: 02/11/18 11:12 Freq: Status: Active Protocol: Document 10/06/18 10:28 [facility] (Rec: 10/06/18 11:56 [facility] [id number]) Hip Strength Hip Manual Muscle Testing Right Flexion (L2) 4 Good Extension (S1) 4+ Good+ Abduction 4+ Good+ External Rotation 5 Normal Internal Rotation 5 Normal Left Flexion (L2) 5 Normal Extension (S1) 4+ Good+ Abduction 5 Normal External Rotation 4+ Good+ Internal Rotation 5 Normal PT-OP-Q Treatments Start: 02/11/18 11:12 Freq: Status: Active Protocol: Document 10/27/18 16:45 [facility] (Rec: 10/28/18 09:30 [facility] [id number]) Therapeutic Exercises Supine Exercises 1 Supine Exercise Name abdominal series flex & diagnal Side bilateral Reps/Minutes 30 sec Comments single leg ea Sitting Exercises fwd bend Sitting Exercise Name segmental for flex stretch Reps/Minutes 30 sec hold Therapeutic Activity Therapeutic Activity posture Comments standing and sittting posture progressed to weight shift and wt acceptance faciliation into both posiitons and progressed sitting wt shift & acceptance to sit to stand with focus on maintaining posture & working on first steps from sit to stand car Name car seat and discussed best ways to get in/out of car Comments discussed ways to support with towels and pillows in car Manual Therapy Treatment Soft Tissue Mobilization ES Body Location ES B Mobilization Type Myofascial Release,Rolling Intensity/Depth Moderate Body Position Prone PT-OP-R Modalities Start: 02/11/18 11:12 Freq: Status: Active Protocol: Document 08/24/18 15:42 [facility] (Rec: 08/24/18 15:51 [facility] [id number]) Electric Stimulation Electric Stimulation Interferential Current (IFC) Body Location IFC with MHP to the lower back and sacral region Duration (Minutes) 15 Patient Position Hooklying Combined With Heat/Cold Hot Pack PT-OP-T Assessment and Plan Start: 02/11/18 11:12 Freq: Status: Active Protocol: Document 10/27/18 16:45 [facility] (Rec: 10/28/18 09:30 [facility] [id number]) Physical Therapy Assessment Goals activity Short Term Goal (STG) Pt will demonstrate good lifting mechanics. 6/12-improved with minor cueing required STG Duration achieved Internet Manager Goal (LTG) Pt will be able to return to normal daily activities without inc pain or fatigue. 6/12-pt reports less pain but still painful with certain movements 8/7-pain only moving quickly or w/sit to stand sometimes LTG Duration 12/06/18 strength Short Term Goal (STG) Indep with HEP STG Duration 03/15/18-achieved advancing as needed Fdc Goal (LTG) Pt will have 5/5 LE strength & 4/5 LPM, EFT & VCT to demonstrate improved core stability to allow pt to do normal daily activities without pain. 08/11-EFT-4/5 VCT-3/5; LPM AP R 0/5; L PA 0/5, L AP & RPA 3/10/06-improved LTG Duration 12/06/18 Assessment Summary Assessment pt had inc tightness in paraspinals and more pain than she has in the past month. She was given stretches to try at home and encouraged to prop herself in the car when going for longer drives or spending a lot of time in the car.
--- NOTE | 2018-11-03 15:11 | PT.OTN ---
Current Diagnoses Low back pain (11/03/18) Physical Therapy Treatment Note PT-OP-A Visit Information Start: 02/11/18 11:12 Freq: Status: Active Protocol: Document 11/03/18 13:58 [facility] (Rec: 11/03/18 15:11 [facility] [id number]) Out-Patient Physical Therapy Visit Information Visit Information Visit Type Discharge Summary Visit Start Time 13:00 Visit Stop Time 13:45 Total Visit Minutes 45 Visit Number 4/10 Number of CATERPILLAR TRACTOR OPERATOR Visits 0 PT-OP-B Current Condition Start: 02/11/18 11:12 Freq: Status: Active Protocol: Document 02/12/18 09:46 [facility] (Rec: 02/12/18 10:47 [facility] [id number]) Current Condition History of Current Condition Onset Date a few months ago Current Complaints LBP History of Current Condition Pt reports she fell when chasing a runaway suitcase going down hill that pulled her hard and she landed flat on her back. This was a few months ago and she has had back pain since this and it is not getting better with her trying to do stretches. Reports when she gets up from sitting, it takes her a while to get fully straight. Pt reports being distracted during daily activity d/t pain and gets fatigued quicker. has been doing vacuuming and some of the harder household tasks. Pt reports back pain years ago but went away and was never a lasting thing. Reports she was in hospital for back pain one time because she turned to close the car door and had inc pain. Pt reports this was probably about 15 years or more. Pt has hx of R bunionectomy about 30 years ago. Pt reports hx of D&C about 33 years ago. Pt reports she hit her toe in the past week on L but it is starting to feel better. 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 PT-OP-C Subjective Start: 02/11/18 11:12 Freq: Status: Active Protocol: Document 11/03/18 13:58 [facility] (Rec: 11/03/18 15:11 [facility] [id number]) OP-PT Subjective Patient Comments Patient Comments Pt reports they got a new car that is way more comfortable. Reports transitions are going well. Patient Reported Progress Improving PT-OP-F Manual Assessment Start: 02/11/18 11:12 Freq: Status: Active Protocol: Document 02/12/18 09:46 [facility] (Rec: 02/12/18 10:47 [facility] [id number]) Manual Assessments Soft Tissue Assessment Soft Tissue Mobility Assessment TIghtness in QL, ES, piriformis & glutes R>L Joint Mobility Assessment Joint Mobility Assessment R iliac crest elevated and ant ; even greater trochanter height PT-OP-G Mobility & Gait Start: 02/11/18 11:12 Freq: Status: Active Protocol: Document 02/12/18 09:46 [facility] (Rec: 02/12/18 10:47 [facility] [id number]) OP Gait Assessment Comments Gait Comments Leg walker primarily; Rotation of R pelvis with RLE push off , fwd trunk lean PT-OP-J Posture/Palpation/Skin Start: 02/11/18 11:12 Freq: Status: Active Protocol: Document 11/03/18 13:58 [facility] (Rec: 11/03/18 15:11 [facility] [id number]) Posture Evaluation Tasneem Postural Classification System Vertebral Compression Test 3 Elbow Flexion Test 4 Lumbar Protective Mechanism Left AP 4 Lumbar Protective Mechanism Right AP 4 Lumbar Protective Mechanism Left PA 2 Lumbar Protective Mechanism Right PA 2 PT-OP-K Range of Motion Start: 02/11/18 11:12 Freq: Status: Active Protocol: Document 04/16/18 12:13 [facility] (Rec: 04/16/18 13:04 [facility] [id number]) Lumbar Spine Range of Motion Lumbar Spine Active Degrees Flexion 53 Extension 17 Rotation Left 30 Rotation Right 30 Lateral Flexion Left 26 Lateral Flexion Right 24 Comments PULL B w/SB R PT-OP-L Special Tests Start: 02/11/18 11:12 Freq: Status: Active Protocol: Document 02/12/18 09:46 [facility] (Rec: 02/12/18 10:47 [facility] [id number]) Special Tests Lumbar Spine Special Tests Slump Test Results neg Straight Leg Raise Test Results neg b PT-OP-M Strength Start: 02/11/18 11:12 Freq: Status: Active Protocol: Document 11/03/18 13:58 [facility] (Rec: 11/03/18 15:11 [facility] [id number]) Hip Strength Hip Manual Muscle Testing Right Flexion (L2) 5 Normal Extension (S1) 5 Normal Abduction 5 Normal External Rotation 5 Normal Internal Rotation 5 Normal Left Flexion (L2) 4+ Good+ Extension (S1) 5 Normal Abduction 5 Normal External Rotation 5 Normal Internal Rotation 5 Normal PT-OP-Q Treatments Start: 02/11/18 11:12 Freq: Status: Active Protocol: Document 11/03/18 13:58 [facility] (Rec: 11/03/18 15:11 [facility] [id number]) Therapeutic Exercises Supine Exercises 2 Supine Exercise Name SLR with core activation Side bilateral Reps/Minutes 10 1 Supine Exercise Name abdominal series flex & diagnal Side bilateral Reps/Minutes 30 sec Comments single leg ea bridge Supine Exercise Name w/arms in air & arms down with march or single leg lifts Side bilateral Reps/Minutes 5 ea piriformis stretch Supine Exercise Name SKTC & piriformis stretch Side bilateral Therapeutic Activity Therapeutic Activity cleaning Name edu and demo with pt practivcing after Comments for vacuuming, mopping and sweeping Manual Therapy Treatment Soft Tissue Mobilization ES Body Location ES & QL B Mobilization Type Myofascial Release,Rolling Intensity/Depth Moderate Body Position Prone Joint Mobilizations sacrum Direction R UPA & caudal FM Body Position Prone Neuro Re-Education Treatment Other Activities PNF Details ant elevation & post depression B Comments rhythmic initiation progressed to COI PT-OP-R Modalities Start: 02/11/18 11:12 Freq: Status: Active Protocol: Document 08/24/18 15:42 [facility] (Rec: 08/24/18 15:51 [facility] [id number]) Electric Stimulation Electric Stimulation Interferential Current (IFC) Body Location IFC with MHP to the lower back and sacral region Duration (Minutes) 15 Patient Position Hooklying Combined With Heat/Cold Hot Pack PT-OP-T Assessment and Plan Start: 02/11/18 11:12 Freq: Status: Active Protocol: Document 11/03/18 13:58 [facility] (Rec: 11/03/18 15:11 [facility] [id number]) Physical Therapy Assessment Goals activity Short Term Goal (STG) Pt will demonstrate good lifting mechanics. 6/12-improved with minor cueing required STG Duration achieved Mcc Goal (LTG) Pt will be able to return to normal daily activities without inc pain or fatigue. 612-pt reports less pain but still painful with certain movements 8/7-pain only moving quickly or w/sit to stand sometimes LTG Duration achieved overall when pt aware of mechanics strength Short Term Goal (STG) Indep with HEP STG Duration achieved Mcc Goal (LTG) Pt will have 5/5 LE strength & 4/5 LPM, EFT & VCT to demonstrate improved core stability to allow pt to do normal daily activities without pain. 08/11-EFT-4/5 VCT-3/5; LPM AP R 0/5; L PA 0/5, L AP & RPA 05/04 10/06-improved LTG Duration mostly achieved and to cont with HEP Assessment Summary Assessment Pt has made excellent progress with PT. She is having significantly less pain and is noting no more fatigue with just doing her daily activities. SHe has added in walking and is adjusting the way she performs activities. At this time, she is ready for d/c to cont to advance strength & stability with her HEP. Physical Therapy Plan Discharge Physical Therapy Discharge Reasons Goals Met
== END 2018-11-05 15:12 | disposition home or self-care (01) ==
LOC: PHYS 13:00
PROVIDERS: Family Provider Family Medicine; PCP Family Medicine; Visit Provider Family Medicine
DX: M54.5 Low back pain (principal)
CPT/HCPCS: 97014; 97110; 97112; 97140; 97161; 97530; 97535; G0283

== ENCOUNTER → 2019-01-07 09:44 | Outpatient (CLI) | payer MEDICARE, SELFPAY ==
[2019-01-07 10:40] LABS: Add Manual Diff / Slide Review NO; Basophils Absolute Auto 100 /uL (0-100); Basophils Percent Auto 1.1 % (0-2); Eosinophils Absolute Auto 100 /uL (0-450); Eosinophils Percent Auto 1.1 % (2-4); Hematocrit 42.9 % (36-46); Hemoglobin 14.7 g/dL (12.0-16.0); Lymphocytes Absolute Auto 1300 /uL (1100-4500); Lymphocytes Percent Auto 28.5 % (25-40); Mean Corpuscular HGB Conc 34.1 % (30-36); Mean Corpuscular Hemoglobin 30.9 PG (26-34); Mean Corpuscular Volume 90.6 fL (80-100); Monocytes Absolute Auto 300 /uL (0-900); Monocytes Percent Auto 6.9 % (3-14); Neutrophils Absolute Auto 2900 /uL (1500-7000); Neutrophils Percent Auto 62.4 % (50-75); Platelet Count 286 X10^3/uL (150-400); Red Blood Cell Count 4.74 X10^6/uL (4.0-5.2); Red Cell Distribution Width 14.6 % (11.6-14.8); White Blood Cell Count 4.7 X10^3/uL (4.5-11.0)
[2019-01-07 11:05] LABS: Alanine Aminotransferase 24 IU/L (<35); Albumin 4.6 g/dL (3.5-5.0); Albumin Globulin Ratio 1.7 (1.0-2.8); Alkaline Phosphatase 83 U/L (38-126); Aspartate Aminotransferase 31 IU/L (14-36); Bilirubin Total 0.5 mg/dL (0.2-1.3); Blood Urea Nitrogen 12 mg/dL (7-17); C-Reactive Protein Quant 0.6 mg/dL (<1.0); Calcium 9.4 mg/dL (8.4-10.2); Carbon Dioxide 29 mmol/L (22-32); Chloride 103 mmol/L (98-107); Estimated Glomerular Filt Rate > 60.0 mL/min (>60); Globulin 2.7 g/dL (1.7-4.1); Glucose 100 mg/dL (80-110); HEMOLYSIS < 15 (0-50); Potassium 4.3 mmol/L (3.4-5.1); Sodium 139 mmol/L (137-145); Total Protein 7.3 g/dL (6.3-8.2)
[2019-01-07 11:21] LABS: Erythrocyte Sedimentation Rate 10 MM/HR (0-20)
[2019-01-07 11:31] LABS: Thyroid Stimulating Hormone 2.89 uIU/mL (0.47-4.68)
== END ==
PROVIDERS: Family Provider Family Medicine; PCP Family Medicine; Visit Provider Family Medicine
DX: T78.40XA Allergy, unspecified, initial encounter (principal); E78.5 Hyperlipidemia, unspecified
CPT/HCPCS: 36415; 80053; 84443; 85025; 85651; 86140

== ENCOUNTER → 2019-09-22 10:41 | Outpatient (CLI) | payer MEDICARE, SELFPAY ==
--- NOTE | 2019-09-22 | DI.MG.S_ITS ---
BILATERAL DIGITAL SCREENING MAMMOGRAM 3D/2D WITH CAD: 09/22/2019 CLINICAL: Routine screening. Comparison is made to exams dated: 05/12/2018 mammogram, 04/06/2017 mammogram, and 03/24/2016 mammogram - [facility]. The tissue of both breasts is heterogeneously dense. This may lower the sensitivity of mammography. Current study was also evaluated with a Computer Aided Detection (CAD) system. There are benign vascular calcifications in both breasts. There are mole markers on both breasts. No significant masses, calcifications, or other findings are seen in either breast. There has been no significant interval change. IMPRESSION: There is no mammographic evidence of malignancy. A 1 year screening mammogram is recommended. This exam was interpreted at Station ID: [id number]. NOTE: For mammograms, a report in lay terms will be sent to the patient. Approximately 15% of breast malignancies will not be visualized mammographically. In the management of a palpable breast mass, a negative mammogram must not discourage biopsy of a clinically suspicious lesion. Electronically Signed By: Juan A benjamin/jaime:09/22/2019 11:16:46 letter sent: Normal Exam ACR BI-RADS Category 2: Benign Finding(s) 3342F
== END ==
PROVIDERS: Family Provider Family Medicine; PCP Family Medicine; Referring Provider Family Medicine; Visit Provider Family Medicine
DX: Z12.31 Encounter for screening mammogram for malignant neoplasm of breast (principal)
CPT/HCPCS: 77063; 77067

== ENCOUNTER → 2020-07-10 10:17 | Outpatient (CLI) | payer MEDICARE, SELFPAY ==
[2020-07-10 11:05] LABS: Add Manual Diff / Slide Review NO; Basophils Absolute Auto 0 /uL (0-100); Eosinophils Absolute Auto 0 /uL (0-450); Hemoglobin 14.3 g/dL (12.0-16.0); Lymphocytes Absolute Auto 1400 /uL (1100-4500); Lymphocytes Percent Auto 31.9 % (25-40); Mean Corpuscular HGB Conc 33.3 % (30-36); Mean Corpuscular Hemoglobin 30.4 PG (26-34); Mean Corpuscular Volume 91.4 fL (80-100); Monocytes Absolute Auto 300 /uL (0-900); Monocytes Percent Auto 6.4 % (3-14); Neutrophils Absolute Auto 2600 /uL (1500-7000); Neutrophils Percent Auto 59.7 % (50-75); Platelet Count 261 X10^3/uL (150-400); Red Blood Cell Count 4.71 X10^6/uL (4.0-5.2); Red Cell Distribution Width 14.1 % (11.6-14.8); White Blood Cell Count 4.4 X10^3/uL (4.5-11.0)
[2020-07-10 11:27] LABS: Alanine Aminotransferase 24 IU/L (<35); Albumin 4.4 g/dL (3.5-5.0); Albumin Globulin Ratio 1.5 (1.0-2.8); Alkaline Phosphatase 88 U/L (38-126); Aspartate Aminotransferase 35 IU/L (14-36); BUN Creatinine Ratio 14.5 (6-22); Bilirubin Total 0.5 mg/dL (0.2-1.3); Blood Urea Nitrogen 12 mg/dL (7-17); Calcium 9.7 mg/dL (8.4-10.2); Carbon Dioxide 25 mmol/L (22-32); Chloride 106 mmol/L (98-107); Cholesterol 241 mg/dL (140-199); Estimated Glomerular Filt Rate > 60.0 mL/min (>60); Glucose 103 mg/dL (80-110); HDL Cholesterol 82 mg/dL (40-60); HEMOLYSIS < 15 (0-50); LDL Cholesterol Calculated 120 mg/dL (<100); Potassium 3.9 mmol/L (3.4-5.1); Sodium 138 mmol/L (137-145); Total Protein 7.4 g/dL (6.3-8.2); Triglycerides 197 mg/dL (35-150)
[2020-07-10 11:57] LABS: TSH w/ Reflex to FT4 2.48 uIU/mL (0.47-4.68)
== END ==
PROVIDERS: Family Provider Family Medicine; PCP Family Medicine; Referring Provider Family Medicine; Visit Provider Family Medicine
DX: E78.5 Hyperlipidemia, unspecified (principal)
CPT/HCPCS: 36415; 80053; 80061; 84443; 85025

== ENCOUNTER → 2020-09-25 15:45 | Outpatient (CLI) | payer MEDICARE, SELFPAY ==
--- NOTE | 2020-09-25 | DI.MG.S_ITS ---
BILATERAL DIGITAL SCREENING MAMMOGRAM 3D/2D WITH CAD: 09/25/2020 CLINICAL: Routine screening. Comparison is made to exams dated: 09/22/2019 mammogram, 05/12/2018 mammogram, and 04/06/2017 mammogram - [facility]. There are scattered fibroglandular elements in both breasts. Current study was also evaluated with a Computer Aided Detection (CAD) system. There are benign vascular calcifications in both breasts. There are mole markers on both breasts. No significant masses, calcifications, or other findings are seen in either breast. There has been no significant interval change. IMPRESSION: BENIGN There is no mammographic evidence of malignancy. A 1 year screening mammogram is recommended. This exam was interpreted at Station ID: [id number]. NOTE: For mammograms, a report in lay terms will be sent to the patient. Approximately 15% of breast malignancies will not be visualized mammographically. In the management of a palpable breast mass, a negative mammogram must not discourage biopsy of a clinically suspicious lesion. Electronically Signed By: Juan A benjamin/jaime:09/25/2020 17:25:43 letter sent: Normal Exam ACR BI-RADS Category 2: Benign Finding(s) 3342F
== END ==
PROVIDERS: Family Provider Family Medicine; PCP Family Medicine; Referring Provider Family Medicine; Visit Provider Family Medicine
DX: Z12.31 Encounter for screening mammogram for malignant neoplasm of breast (principal)
CPT/HCPCS: 77063; 77067

== ENCOUNTER → 2021-09-26 14:03 | Outpatient (CLI) | payer MEDICARE, SELFPAY ==
--- NOTE | 2021-09-26 | DI.MG.S_ITS ---
BILATERAL DIGITAL SCREENING MAMMOGRAM 3D/2D WITH CAD: 09/26/2021 CLINICAL: Routine screening. Comparison is made to exams dated: 09/25/2020 mammogram, 09/22/2019 mammogram, and 05/12/2018 mammogram - [facility]. There are scattered fibroglandular elements in both breasts. Current study was also evaluated with a Computer Aided Detection (CAD) system. There are benign vascular calcifications in both breasts. There are mole markers on both breasts. No significant masses, calcifications, or other findings are seen in either breast. There has been no significant interval change. IMPRESSION: BENIGN There is no mammographic evidence of malignancy. A 1 year screening mammogram is recommended. Based on the Tyrer Cuzick model (a risk assessment model) the patient's lifetime risk is 2.6% and her 10 year risk is 2.4%. According to the ACR, ACS, and NCCN guidelines, an annual breast MRI exam along with mammogram is recommended if the patient's lifetime risk is 20% or greater. This exam was interpreted at Station ID: [id number]. NOTE: For mammograms, a report in lay terms will be sent to the patient. Approximately 15% of breast malignancies will not be visualized mammographically. In the management of a palpable breast mass, a negative mammogram must not discourage biopsy of a clinically suspicious lesion. Electronically Signed By: Meera vazquez/jaime:09/26/2021 15:14:48 letter sent: Normal Exam ACR BI-RADS Category 2: Benign Finding(s) 3342F
== END ==
PROVIDERS: Family Provider Family Medicine; PCP Family Medicine; Referring Provider Family Medicine; Visit Provider Family Medicine
DX: Z12.31 Encounter for screening mammogram for malignant neoplasm of breast (principal)
CPT/HCPCS: 77063; 77067

== ENCOUNTER → 2021-10-30 10:20 | Outpatient (CLI) | payer MEDICARE, SELFPAY | PROVIDERS: Family Provider Family Medicine; PCP Family Medicine; Visit Provider Registered Nurse | DX: R30.0 Dysuria (principal) | CPT/HCPCS: 87086 ==

== ENCOUNTER → 2022-10-14 13:12 | Outpatient (CLI) | payer MEDICARE, SELFPAY ==
--- NOTE | 2022-10-14 | DI.MG.S_ITS ---
BILATERAL DIGITAL SCREENING MAMMOGRAM 3D/2D WITH CAD: 10/14/2022 CLINICAL: Routine screening. Comparison is made to exams dated: 09/26/2021 mammogram, 09/25/2020 mammogram, 09/22/2019 mammogram, and 05/12/2018 mammogram - [facility]. There are scattered areas of fibroglandular density in both breasts (category b / 25%-50% glandular tissue). Current study was also evaluated with a Computer Aided Detection (CAD) system. There are benign vascular calcifications in both breasts. There are mole markers on both breasts. No significant masses, calcifications, or other findings are seen in either breast. There has been no significant interval change. IMPRESSION: BENIGN There is no mammographic evidence of malignancy. A 1 year screening mammogram is recommended. Based on the Tyrer Cuzick model (a risk assessment model) the patient's lifetime risk is 2.4% and her 10 year risk is 2.4%. According to the ACR, ACS, and NCCN guidelines, an annual breast MRI exam along with mammogram is recommended if the patient's lifetime risk is 20% or greater. This exam was interpreted at Station ID: [id number]. NOTE: For mammograms, a report in lay terms will be sent to the patient. Approximately 15% of breast malignancies will not be visualized mammographically. In the management of a palpable breast mass, a negative mammogram must not discourage biopsy of a clinically suspicious lesion. Electronically Signed By: Koko mera/jaime:10/14/2022 14:40:18 letter sent: Normal Exam ACR BI-RADS Category 2: Benign Finding(s) 3342F
== END ==
PROVIDERS: Family Provider Family Medicine; PCP Family Medicine; Referring Provider Family Medicine; Visit Provider Family Medicine
DX: Z12.31 Encounter for screening mammogram for malignant neoplasm of breast (principal)
CPT/HCPCS: 77063; 77067

== ENCOUNTER 2022-12-05 18:20 | Emergency (ER) | payer MEDICARE, SELFPAY ==
[2022-12-05 18:31] VITALS: BP 146/80; PULSE 87; RESP 16; TEMP 36.7; O2SAT 97; BMI 26.5
--- NOTE | 2022-12-05 18:39 | DI.RAD.S_ITS ---
PROCEDURE: XR CHEST 1V INDICATIONS: chest pain TECHNIQUE: One view of the chest was acquired. COMPARISON: None. FINDINGS: Surgical changes and devices: None. Lungs and pleura: Lungs are clear. No pleural effusions or pneumothorax. Mediastinum: Mediastinal contours appear normal. Heart size is normal. Bones and chest wall: No suspicious bony lesions. Overlying soft tissues appear unremarkable. IMPRESSION: No acute cardiopulmonary pathology. Dictated by: Silvino Hamilton M.D. on 12/05/2022 at 19:00 Approved by: Silvino Hamilton M.D. on 12/05/2022 at 19:00
[2022-12-05 19:16] LABS: Add Manual Diff / Slide Review NO; Basophils Absolute Auto 0 /uL (0-100); Basophils Percent Auto 0.7 % (0-2); Eosinophils Absolute Auto 100 /uL (0-450); Eosinophils Percent Auto 1.3 % (2-4); Hematocrit 39.2 % (36-46); Hemoglobin 13.5 g/dL (12.0-16.0); Lymphocytes Absolute Auto 1600 /uL (1100-4500); Lymphocytes Percent Auto 36.2 % (25-40); Mean Corpuscular HGB Conc 34.4 % (30-36); Mean Corpuscular Hemoglobin 31.5 PG (26-34); Mean Corpuscular Volume 91.3 fL (80-100); Monocytes Absolute Auto 400 /uL (0-900); Monocytes Percent Auto 8.1 % (3-14); Neutrophils Absolute Auto 2400 /uL (1500-7000); Neutrophils Percent Auto 53.7 % (50-75); Platelet Count 226 X10^3/uL (150-400); Red Blood Cell Count 4.29 X10^6/uL (4.0-5.2); Red Cell Distribution Width 14.1 % (11.6-14.8); White Blood Cell Count 4.5 X10^3/uL (4.5-11.0)
[2022-12-05 19:20] LABS: INR 1.1 (0.9-1.3); Prothrombin Time 12.2 SECONDS (10.1-12.7)
[2022-12-05 19:22] LABS: PTT Partial Thromboplastin Tim 33 SECONDS (26-36)
[2022-12-05 19:24] LABS: Alanine Aminotransferase 22 IU/L (<35); Albumin 4.5 g/dL (3.5-5.0); Albumin Globulin Ratio 1.4 (1.0-2.8); Alkaline Phosphatase 77 U/L (38-126); Aspartate Aminotransferase 37 IU/L (14-36); BUN Creatinine Ratio 11.7 (6-22); Bilirubin Total 0.6 mg/dL (0.2-1.3); Blood Urea Nitrogen 9 mg/dL (7-17); Calcium 9.2 mg/dL (8.4-10.2); Carbon Dioxide 26 mmol/L (22-32); Chloride 106 mmol/L (98-107); Creatine Kinase 156 U/L (30-135); Estimated Glomerular Filt Rate > 60 mL/min (>60); Globulin 3.2 g/dL (1.7-4.1); Glucose 85 mg/dL (80-110); Lipase 207 U/L (23-300); Magnesium 2.2 mg/dL (1.6-2.3); Potassium 3.8 mmol/L (3.4-5.1); Sodium 139 mmol/L (137-145); Total Protein 7.7 g/dL (6.3-8.2)
[2022-12-05 19:35] VITALS: PULSE 80; RESP 15; O2SAT 97
[2022-12-05 19:36] VITALS: BP 135/68; PULSE 81; RESP 18; O2SAT 97
[2022-12-05 19:36] LABS: Troponin I < 0.012 ng/mL (0.01-0.034)
[2022-12-05 19:38] LABS: HEMOLYSIS 56 (0-50)
--- NOTE | 2022-12-05 19:57 | ED_ITS ---
HPI - Chest Pain General Chief Complaint: Chest Pain Stated Complaint: chest pain/throat problems/difficulty breathing Time Seen by Provider: 12/05/22 19:56 Source: patient Mode of arrival: Ambulatory Limitations: no limitations History of Present Illness HPI narrative: Patient is a 77-year-old female has a history hyperlipidemia not on medications secondary to allergy presents today with about 3 days throat pain and chest pain. Difficult for her to describe but she says it has been there for the last few days. She has some throat pain it seems to be worse at night. She occasionally has some left arm pain. No significant shortness of breath. Not having any chest pain now. She describes it as burning and heaviness. Her arm pain lasts briefly for couple of seconds. No known history of coronary artery disease. It is not any worse today. She reports that she is constantly clearing her throat she feels like she is postnasal drip. She denies any fever chills or cough. She has some acid reflux but no significant history of it. Related Data Previous Rx's Medication Instructions Recorded estradiol 0.01% (0.1 mg/gram) 1 appful vaginal DAILY #42.5 grams 11/08/21 vaginal cream epinephrine 0.3 mg/0.3 mL See Rx Instructions .Route 12/11/21 injection, auto-injector .COMPLEX #2 ea omeprazole 20 mg capsule,delayed 20 mg PO DAILY #30 caps 12/05/22 release Allergies Allergy/AdvReac Type Severity Reaction Status Date / Time psyllium Allergy Severe ANAPHYLAXIS Verified 11/08/21 11:16 latex Allergy Mild Rash Verified 11/08/21 11:16 Sulfa (Sulfonamide AdvReac Unknown Patient Verified 11/08/21 11:16 Antibiotics) can't remember Review of Systems Review of Systems ROS Unobtainable: All systems reviewed & are unremarkable except as noted in HPI and below Patient History Medical History (Updated 12/05/22 @ 20:29 by Teresa Mccauley DO) Schatzki's ring (08/16/15) Rectal polyp (08/16/15) Foot pain (~2011) Seborrheic keratoses GERD (gastroesophageal reflux disease) Skin cancer of nose (~1999) Surgical History History of esophagogastroduodenoscopy (EGD) (08/16/15) History of colonoscopy with polypectomy (08/16/15) Anesthesia complication History of local excision of skin lesion (~1999) Status post right foot surgery (1986) Status post dilation and curettage Status post endoscopy Family History Brother Cancer Lung cancer Father Heart disease Mother Stroke Sister Age: 77 Heart attack Heart disease Brother No problems noted. Brother No problems noted. Family/Other No problems noted. Family/Other No problems noted. Family/Other No problems noted. Sister No problems noted. Social History marital status: Smoking Status: Never smoker alcohol intake: current (ON OCCASION ) substance use type: does not use Smoking Status: Never smoker Substance Use Type: does not use Exam Initial Vital Signs Initial Vital Signs: Vital Signs Temperature 98.1 F 12/05/22 18:31 Pulse Rate 87 12/05/22 18:31 Respiratory Rate 16 12/05/22 18:31 Blood Pressure 146/80 H 12/05/22 18:31 Pulse Oximetry 97 12/05/22 18:31 Oxygen Delivery Method Room Air 12/05/22 18:31 GENERAL: Alert 77-year-old female and in no acute distress. HEENT: Head atraumatic,EOMI, pupils reactive, face symmetric, moist mucous membranes CARDIOVASCULAR: Regular rate and rhythm without murmurs, rubs or gallops. RESPIRATORY: Breath sounds equal bilaterally, no wheezes rales or rhonchi. ABDOMEN: Soft, nontender. Normoactive bowel sounds all 4 quadrants. No guarding or rebound. EXTREMITIES: Normal range of motion, no clubbing or edema. Neurovascularly intact NEUROLOGICAL: Alert and oriented x4. Moving extremities SKIN: Warm, dry, no laceration, no petechiae, no rashes or lesions. Scores HEART Score Heart Score history: Slightly Suspicious Heart Score EKG: Normal Heart Score Age: > or = 65 years old Heart Score risk factors: 1-2 risk factors Heart Score troponin: < or = to normal limit Heart Score Total: 3 Course Orders Ordered: ED Orders 12/05/22 18:39 XR chest 1V Stat EKG-12 Lead Stat 12/05/22 18:50 Complete Blood Count AUTO DIFF Stat Comprehensive Metabolic Panel Stat Lipase Stat Magnesium Stat PTT Partial Thromboplastin Adriel Stat Prothrombin Time INR Stat Troponin & CK Cardiac Panel Stat Discontinued Medications Al Hydrox/Mg Hydrox/Simethicone 20 ml/ Lidocaine HCl 15 ml 0 ml PO NOW ONE Stop: 12/05/22 20:15 Last Admin: 12/05/22 20:22 Dose: 35 ml Documented By: MILLA Vital Signs Vital signs: Vital Signs - 8 hr 12/05/22 19:35 12/05/22 19:36 12/05/22 19:36 Pulse Rate 80 81 Respiratory Rate 15 18 Blood Pressure 135/68 Pulse Oximetry 97 97 Oxygen Delivery Method Room Air 12/05/22 20:00 12/05/22 20:00 12/05/22 20:30 Pulse Rate 84 81 Respiratory Rate 12 17 Blood Pressure 144/80 H Pulse Oximetry 95 96 Oxygen Delivery Method Room Air Room Air 12/05/22 20:30 Pulse Rate Respiratory Rate Blood Pressure 139/70 Pulse Oximetry Oxygen Delivery Method MDM - Chest Pain Lab Data 12/05/22 18:50 12/05/22 18:50 Labs: Lab Results 12/05/22 Range/Units 18:50 WBC 4.5 (4.5-11.0) X10^3/uL RBC 4.29 (4.0-5.2) X10^6/uL Hgb 13.5 (12.0-16.0) g/dL Hct 39.2 (36-46) % MCV 91.3 (80-100) fL MCH 31.5 (26-34) PG MCHC 34.4 (30-36) % RDW 14.1 (11.6-14.8) % Plt Count 226 (150-400) X10^3/uL Neut % (Auto) 53.7 (50-75) % Lymph % (Auto) 36.2 (25-40) % [place] % (Auto) 8.1 (3-14) % Eos % (Auto) 1.3 L (2-4) % Baso % (Auto) 0.7 (0-2) % Neut # (Auto) 2400 (6083-1598) /uL Lymph # (Auto) 1600 (0367-2812) /uL [place] # (Auto) 400 (0-900) /uL Eos # (Auto) 100 (0-450) /uL Baso # (Auto) 0 (0-100) /uL PT 12.2 (10.1-12.7) SECONDS INR 1.1 (0.9-1.3) APTT 33 (26-36) SECONDS Sodium 139 (137-145) mmol/L Potassium 3.8 (3.4-5.1) mmol/L Chloride 106 (98-107) mmol/L Carbon Dioxide 26 (22-32) mmol/L BUN 9 (7-17) mg/dL Creatinine 0.77 (0.52-1.04) mg/dL Estimated GFR > 60 (>60) mL/min BUN/Creatinine Ratio 11.7 (6-22) Glucose 85 (80-110) mg/dL Calcium 9.2 (8.4-10.2) mg/dL Magnesium 2.2 (1.6-2.3) mg/dL Total Bilirubin 0.6 (0.2-1.3) mg/dL AST 37 H (14-36) IU/L ALT 22 (<35) IU/L Alkaline Phosphatase 77 (38-126) U/L Total Creatine Kinase 156 H (30-135) U/L Troponin I < 0.012 (0.01-0.034) ng/mL Total Protein 7.7 (6.3-8.2) g/dL Albumin 4.5 (3.5-5.0) g/dL Globulin 3.2 (1.7-4.1) g/dL Albumin/Globulin Ratio 1.4 (1.0-2.8) Lipase 207 (23-300) U/L Imaging Data Chest x-ray: Radiologist's Impression: PROCEDURE: XR CHEST 1V INDICATIONS: chest pain TECHNIQUE: One view of the chest was acquired. COMPARISON: None. FINDINGS: Surgical changes and devices: None. Lungs and pleura: Lungs are clear. No pleural effusions or pneumothorax. Mediastinum: Mediastinal contours appear normal. Heart size is normal. Bones and chest wall: No suspicious bony lesions. Overlying soft tissues appear unremarkable. IMPRESSION: No acute cardiopulmonary pathology. Dictated by: Silvino Hamilton M.D. on 12/05/2022 at 19:00 ECG Data Interpretation: Normal sinus rhythm rate 86 NM interval 150 QRS [address] changes, no priors to compare MDM Narrative Medical decision making narrative: Patient is 77-year-old female who presents with chest discomfort for pain arm pain ongoing for days worse at night. She does have hyperlipidemia she is unable to take medication for. It does not sound like symptoms are worse today she is a heart score of 3. Blood work has been reviewed she is a negative troponin EKG does not show any ischemia chest x-ray is negative. At this time discussed with her and family member I do recommend outpatient follow-up she does have an appointment next week with her PCP. Encourage her to return to ED if things get worse. I suspect more of an acid reflux type pain since it is worse at night and she has ongoing throat pain. She does not have any infectious like symptoms upper respiratory infection and viral syndrome also considered. No suspicion for pulmonary embolism or dissection. Discharge Plan Departure Patient Disposition: Home Clinical Impression: Atypical chest pain GERD (gastroesophageal reflux disease) Qualifiers: Esophagitis presence: esophagitis presence not specified Qualified Code(s): K 21.9 - Gastro-esophageal reflux disease without esophagitis Instructions: DI for Gastroesophageal Reflux Disease (GERD), DI for Atypical Chest Pain Activity Restrictions/Additional Instructions: *You have been diagnosed with atypical chest pain, possible acid reflux *What to do: At this time I do recommend talking with her primary care provider as scheduled next week for possible further cardiac testing such as stress test and were echocardiogram. If chest pain changes in any way or worsens please return to the ER *Continue to take medications as directed Omeprazole 20 mg once daily for acid reflux--> [facility] [place] *Follow up with your primary care provider in 2-3 days or call [phone] *Return to ER if you should have increasing chest pain shortness of breath arm pain or any new, worsening or concerning symptoms Prescriptions: New omeprazole 20 mg capsule,delayed release(DR/EC) 20 mg PO DAILY Qty: 30 0RF No Action estradiol 0.01 % (0.1 mg/gram) cream 1 appful vaginal DAILY Qty: 42.5 1RF Rx Instructions: for 14 days epinephrine 0.3 mg/0.3 mL auto-injector See Rx Instructions .ROUTE .COMPLEX Qty: 2 1RF Dose Instruction: inject 0.3 milliliters ( 0.3 milligrams ) intramuscularly if needed for ANAPHYLAXIS May repeat one time if needed for maximum daily dose of 2 INJECTIONS -MUST PROCEED TO ER IF PEN IS USED Rx Instructions: inject 0.3 milliliters ( 0.3 milligrams ) intramuscularly if needed for ANAPHYLAXIS May repeat one time if needed for maximum daily dose of 2 INJECTIONS -MUST PROCEED TO ER IF PEN IS USED Referrals: Ezio Stiles MD [Primary Care Provider] - Stand Alone Forms: Patient Portal/API
[2022-12-05 20:00] VITALS: BP 144/80; PULSE 84; RESP 12; O2SAT 95
[2022-12-05] MEDS: MAG HYDROX/ALUMINUM/SIMETH SUS 20 ML, LIDOCAINE VISCOUS 2% 15 ML PO (20:22)
[2022-12-05 20:30] VITALS: BP 139/70; PULSE 81; RESP 17; O2SAT 96
== END 2022-12-05 20:40 | disposition home or self-care (01) ==
PROVIDERS: Emergency Provider Emergency Medicine; Family Provider Family Medicine; PCP Family Medicine
DX: R07.89 Other chest pain (principal); K21.9 Gastro-esophageal reflux disease without esophagitis
CPT/HCPCS: 36415; 71045; 80053; 82550; 83690; 83735; 84484; 85025; 85610; 85730; 93005; 99284

== ENCOUNTER → 2023-01-20 08:46 | Outpatient (CLI) | payer MEDICARE, SELFPAY ==
--- NOTE | 2023-01-20 08:47 | DI.US.S_ITS ---
PROCEDURE: US ABDOMEN COMPLETE INDICATIONS: LEFT UPPER QUADRANT PAIN TECHNIQUE: Real-time scanning was performed of the abdominal and retroperitoneal organs, with image documentation. COMPARISON: [facility], US, ABDOMEN COMPLETE, 05/11/2015, 8:11. FINDINGS: Liver: The liver demonstrates normal size. The liver demonstrates generalized moderately increased echogenicity. This decreases ultrasound sensitivity for detection of hepatic masses. Within the left lower lobe liver, there is a septated cyst seen that measures 2.2 cm. Within the right lobe of the liver, 3 simple appearing cysts are seen that measure up to 1.4 cm. Gallbladder: No findings of gallstones or sludge are seen. The gallbladder wall is not thickened, measuring 3 mm or less. No specific pericholecystic fluid is seen. The sonographic Jorgensen sign is negative. Biliary ducts: Intrahepatic bile ducts are non-dilated. Extrahepatic bile duct caliber measures 4 mm. Normal is 6-7 mm or less in diameter, or 10 mm or less post-cholecystectomy. Pancreas: Visualized portions of the pancreas are sonographically normal. Spleen: Spleen is normal in size and homogeneous in echotexture. Kidneys: Kidneys are normal in size and echotexture. Right kidney measures 10.8 cm long; left kidney measures 9.9 cm long. No hydronephrosis or nephrolithiasis. No solid masses. Aorta: Visualized aorta is normal in caliber at less than 3 cm. Iliacs: Proximal common iliac arteries are normal in caliber at less than 2.5 cm. IVC: Intrahepatic inferior vena cava is patent. Miscellaneous: No free abdominal fluid. IMPRESSION: No imaging explanation is found for this patient's presenting symptoms. Liver cysts are seen, including a 2.2 cm left-sided liver cyst. This previously measured 2.2 cm in 2016. The gallbladder demonstrates a normal sonographic appearance. No biliary dilatation is seen. The liver demonstrates mildly increased echogenicity. This finding is nonspecific, yet it is most commonly attributed to fatty infiltration. Dictated by: Sang Tran M.D. on 01/20/2023 at 10:34 Approved by: Sang Tran M.D. on 01/20/2023 at 10:36
== END ==
PROVIDERS: Family Provider Family Medicine; PCP Family Medicine; Referring Provider Physician Assistant; Visit Provider Physician Assistant
DX: K76.89 Other specified diseases of liver (principal); R10.12 Left upper quadrant pain
CPT/HCPCS: 76700

== ENCOUNTER → 2023-04-14 13:58 | Outpatient (CLI) | payer MEDICARE, SELFPAY | PROVIDERS: Family Provider Family Medicine; PCP Family Medicine; Visit Provider Physician Assistant Surgical | DX: J02.9 Acute pharyngitis, unspecified (principal) | CPT/HCPCS: 87070 ==

== ENCOUNTER → 2023-04-29 12:43 | Outpatient (CLI) | payer MEDICARE, SELFPAY ==
--- NOTE | 2023-04-29 12:45 | DI.CT.S_ITS ---
PROCEDURE: CT SINUS SCREEN WO CON INDICATIONS: Sinus congestion/pressure; post nasal drainage TECHNIQUE: Noncontrast 3.0 mm axial images acquired from the frontal sinuses to the mid-sella, with coronal and sagittal reformats. For radiation dose reduction, the following was used: automated exposure control, adjustment of mA and/or kV according to patient size. COMPARISON: [facility], CT, HEAD W&WO CONTRAST, 12/02/2016, 9:39. FINDINGS: Image quality: Excellent. Maxillary Sinuses: There is mild bony demineralization seen involving the superior medial ponce of the maxillary sinuses.. [id number] mucosal thickening can be seen within the right maxillary sinus. There is minimal to mild mucosal thickening within the inferior left maxillary sinus. Ethmoid Air Cells: No bony remodeling or destruction. Sinuses are clear. Sphenoid Sinuses: No bony remodeling or destruction. Sinuses are clear. Frontal Sinuses: No bony remodeling or destruction. Sinuses are clear. Ostiomeatal Complexes: The ostiomeatal complexes are patent, yet they are constitutionally narrowed, with bilateral Annika cells. The ostiomeatal complexes are demineralized. Miscellaneous: Visualized intra-orbital contents are normal. Bilateral lamin bullosa can be seen. There is mild leftward nasal septal deviation. IMPRESSION: Focal maxillary sinus disease can be seen. The ostiomeatal complexes are patent, yet they are constitutionally narrowed, with bilateral Annika cells. Areas of bony demineralization are seen, which are consistent with chronic sinusitis. Dictated by: Sang Tran M.D. on 04/29/2023 at 14:17 Approved by: Sang Tran M.D. on 04/29/2023 at 14:20
== END ==
PROVIDERS: Family Provider Family Medicine; PCP Family Medicine; Referring Provider Physician Assistant; Visit Provider Physician Assistant
DX: J32.4 Chronic pansinusitis (principal); J34.89 Other specified disorders of nose and nasal sinuses; J02.9 Acute pharyngitis, unspecified; R09.81 Nasal congestion; R09.82 Postnasal drip
CPT/HCPCS: 70486

== ENCOUNTER → 2023-06-18 11:33 | Outpatient (CLI) | payer MEDICARE, SELFPAY ==
--- NOTE | 2023-06-18 11:36 | DI.RAD.S_ITS ---
PROCEDURE: XR DEXA AXIAL SKELETON INDICATIONS: Estrogen deficiency COMPARISON: [facility], , DEXA AXIAL SKELETON, 03/24/2016, 13:40. FINDINGS: Lumbar Spine: Bone mineral density 0.937 g/cm2, T score -1.0. Left Hip: Bone mineral density 0.976 g/cm2, T score 0.3. Left Femoral Neck: Bone mineral density 0.764 g/cm2, T score -0.8. Right Hip: Bone mineral density 0.938 g/cm2, T score 0.0. Right Femoral Neck: Bone mineral density 0.740 g/cm2, T score -1.0. Fracture Risk Calculation (when applicable): Fracture not provided due to bone mineral density within normal limits. (T score greater or equal to -1.0 to: NORMAL) (T score from -1.1 to -2.4: OSTEOPENIA) (T score less than or equal to -2.5: OSTEOPOROSIS) IMPRESSION: Bone mineral density is within normal limits. Dictated by: Koko Subramanian M.D. on 06/19/2023 at 8:32 Approved by: Koko Subramanian M.D. on 06/19/2023 at 8:34
--- NOTE | 2023-06-18 11:36 | DI.RAD.S_ITS ---
PROCEDURE: XR KNEE RT 3V INDICATIONS: B knee pain - suspect osteoarthritis TECHNIQUE: 3 views of the knee were acquired. COMPARISON: None. FINDINGS: Bones: Joint space narrowing is seen especially of the medial compartment. No acute fracture or subluxation seen. Soft tissues: Soft tissue swelling of the knee with suprapatellar joint effusion IMPRESSION: Medial joint space narrowing with large suprapatellar joint effusion and soft tissue swelling. Dictated by: Adrian Humphreys M.D. on 06/18/2023 at 14:48 Approved by: Adrian Humphreys M.D. on 06/18/2023 at 14:57
--- NOTE | 2023-06-18 11:36 | DI.RAD.S_ITS ---
PROCEDURE: XR KNEE LT 3V INDICATIONS: B knee pain - suspect osteoarthritis TECHNIQUE: 3 views of the knee were acquired. COMPARISON: None. FINDINGS: Bones: No acute fracture or subluxation seen. Bilateral joint space narrowing is seen especially of the lateral compartment. Soft tissues: Large suprapatellar joint effusion is also present. IMPRESSION: Large suprapatellar joint effusion with marked narrowing of especially the lateral knee compartment Dictated by: Adrian Humphreys M.D. on 06/18/2023 at 14:37 Approved by: Adrian Humphreys M.D. on 06/18/2023 at 14:48
== END ==
LOC: RAD 11:35
PROVIDERS: Family Provider Family Medicine; PCP Family Medicine; Referring Provider Physician Assistant; Visit Provider Physician Assistant
DX: M25.561 Pain in right knee (principal); M25.562 Pain in left knee; M25.462 Effusion, left knee; M25.461 Effusion, right knee; Z78.0 Asymptomatic menopausal state; M79.89 Other specified soft tissue disorders
CPT/HCPCS: 73562; 77080

== ENCOUNTER → 2023-11-03 14:47 | Outpatient (CLI) | payer MEDICARE, SELFPAY ==
--- NOTE | 2023-11-03 14:48 | DI.MG.S_ITS ---
BILATERAL DIGITAL SCREENING MAMMOGRAM 3D/2D WITH CAD: 11/03/2023 CLINICAL: Routine screening. Comparison is made to exams dated: 10/14/2022 mammogram, 09/26/2021 mammogram, and 09/25/2020 mammogram - [facility]. There are scattered areas of fibroglandular density in both breasts (category b / 25%-50% glandular tissue). Current study was also evaluated with a Computer Aided Detection (CAD) system. There are benign vascular calcifications in both breasts. There are mole markers on both breasts. No significant masses, calcifications, or other findings are seen in either breast. There has been no significant interval change. IMPRESSION: BENIGN There is no mammographic evidence of malignancy. A 1 year screening mammogram is recommended. Based on the Tyrer Cuzick model (a risk assessment model) the patient's lifetime risk is 2.2% and her 10 year risk is 0.0%. According to the ACR, ACS, and NCCN guidelines, an annual breast MRI exam along with mammogram is recommended if the patient's lifetime risk is 20% or greater. This exam was interpreted at Station ID: [id number]. NOTE: For mammograms, a report in lay terms will be sent to the patient. Approximately 15% of breast malignancies will not be visualized mammographically. In the management of a palpable breast mass, a negative mammogram must not discourage biopsy of a clinically suspicious lesion. Electronically Signed By: Koko mera/jaime:11/03/2023 16:51:26 letter sent: Normal Exam ACR BI-RADS Category 2: Benign Finding(s) [id number]
== END ==
PROVIDERS: Family Provider Family Medicine; PCP Family Medicine; Referring Provider Family Medicine; Visit Provider Family Medicine
DX: Z12.31 Encounter for screening mammogram for malignant neoplasm of breast (principal); R92.1 Mammographic calcification found on diagnostic imaging of breast; R92.323 Mammographic fibroglandular density, bilateral breasts
CPT/HCPCS: 77063; 77067

== ENCOUNTER → 2024-02-19 10:11 | Outpatient (CLI) | payer MEDICARE, SELFPAY ==
[2024-02-19 11:27] LABS: Cholesterol 248 mg/dL (140-199); Triglycerides 191 mg/dL (35-150)
[2024-02-19 11:41] LABS: HDL Cholesterol 116 mg/dL (40-60); LDL Cholesterol Calculated 94 mg/dL (<100)
[2024-02-19 11:57] LABS: TSH w/ Reflex to FT4 2.65 uIU/mL (0.47-4.68)
== END ==
PROVIDERS: Physician Assistant; Family Provider Family Medicine; PCP Family Medicine; Referring Provider Family Medicine; Visit Provider Family Medicine
DX: Z12.11 Encounter for screening for malignant neoplasm of colon (principal); E78.2 Mixed hyperlipidemia
CPT/HCPCS: 36415; 80061; 82274; 84443

== ENCOUNTER → 2024-07-11 09:26 | Outpatient (CLI) | payer MEDICARE, SELFPAY ==
[2024-07-11 10:22] LABS: Add Manual Diff / Slide Review NO; Basophils Absolute Auto 0 /uL (0-100); Basophils Percent Auto 0.7 % (0-2); Eosinophils Absolute Auto 0 /uL (0-450); Eosinophils Percent Auto 0.8 % (2-4); Hematocrit 42.5 % (36-46); Hemoglobin 14.1 g/dL (12.0-16.0); Lymphocytes Absolute Auto 1300 /uL (1100-4500); Lymphocytes Percent Auto 28.8 % (25-40); Mean Corpuscular HGB Conc 33.2 % (30-36); Mean Corpuscular Hemoglobin 31.4 PG (26-34); Mean Corpuscular Volume 94.5 fL (80-100); Monocytes Absolute Auto 300 /uL (0-900); Monocytes Percent Auto 7.3 % (3-14); Neutrophils Absolute Auto 2800 /uL (1500-7000); Neutrophils Percent Auto 62.4 % (50-75); Platelet Count 232 X10^3/uL (150-400); Red Cell Distribution Width 14.4 % (11.6-14.8); White Blood Cell Count 4.5 X10^3/uL (4.5-11.0)
[2024-07-11 10:42] LABS: Alanine Aminotransferase 27 IU/L (<35); Albumin 4.7 g/dL (3.5-5.0); Albumin Globulin Ratio 1.6 (1.0-2.8); Alkaline Phosphatase 80 U/L (38-126); Aspartate Aminotransferase 40 IU/L (14-36); BUN Creatinine Ratio 12.9 (6-22); Bilirubin Total 0.5 mg/dL (0.2-1.3); Blood Urea Nitrogen 12 mg/dL (7-17); Calcium 9.2 mg/dL (8.4-10.2); Carbon Dioxide 25 mmol/L (22-32); Chloride 106 mmol/L (98-107); Cholesterol 252 mg/dL (140-199); Estimated Glomerular Filt Rate > 60 mL/min (>60); Glucose 109 mg/dL (70-99); HDL Cholesterol 94 mg/dL (40-60); HEMOLYSIS < 15 (0-50); LDL Cholesterol Calculated 123 mg/dL (<100); Sodium 139 mmol/L (137-145); Total Protein 7.7 g/dL (6.3-8.2); Triglycerides 173 mg/dL (35-150)
== END ==
PROVIDERS: Family Provider Family Medicine; PCP Family Medicine; Referring Provider Family Medicine; Visit Provider Family Medicine
DX: E78.2 Mixed hyperlipidemia (principal); R53.83 Other fatigue
CPT/HCPCS: 36415; 80053; 80061; 84443; 85025